=== PATIENT | male | born 1960 | race Caucasian/White ===

== ENCOUNTER 2017-06-05 13:39 | Emergency (ER) | payer OTHER, SELFPAY ==
[2017-06-05 13:40] VITALS: BP 130/76; PULSE 83; RESP 16; TEMP 37; O2SAT 97; BMI 32.5
--- NOTE | 2017-06-05 14:00 | NURSING ---
NO LW OR POA
--- NOTE | 2017-06-05 14:47 | CT_ITS ---
STUDY: CT ABDOMEN AND PELVIS WITHOUT CONTRAST REASON FOR EXAM: Male, 56 years old. Abdominal pain, 2 days, dizziness, history of diverticulitis history of lymphoma with chemotherapy history of lithotripsy RADIATION DOSAGE (If Supplied By Facility): CTDIvol = ( 15.49 ) mGy, DLP = ( 739.31 ) mGycm TECHNIQUE: Transaxial images were obtained from the dome of the diaphragm to the symphysis pubis without oral contrast, and without intravenous contrast. Sagittal and coronal images were reconstructed. Individualized dose optimization techniques were used for this CT. COMPARISON: September 24, 2015 CT scan abdomen and pelvis FINDINGS: The visualized lung bases are unremarkable. The visualized portions of the heart are within normal limits. The liver is enlarged and fatty infiltrated. Normal gallbladder and extrahepatic biliary system. Normal spleen. Normal pancreas. Normal bilateral adrenal glands. There are multiple punctate stones in the right kidney without evidence of hydronephrosis. There is a exophytic right renal cyst measuring 5.9 mm there is a left side exophytic renal cyst measuring 1.7 x 1.0 cm. There are multiple stones in the left kidney the largest of which is in the lower pole measuring 4.7 mm without evidence of hydronephrosis. There is some inflammation near the course of the left ureter along the left psoas muscle. There is a small hiatal hernia. There are minimally fluid distended loops of small bowel. There is moderate stool in the colon. There are diverticula present. Within the distal descending colon there is inflammation over a course of approximately 8 cm involving inflamed diverticula and surrounding inflammation in the pericolonic fat as well as the thickened appearance of the adjacent peritoneum including some mild stranding into the left side of the retroperitoneum. There is no definitive focal abscess formation. The appendix is visualized and appears normal. Aorta is partially calcified and minimally tortuous. There is a 1.6 cm lymph node at the level of the kidneys. There are multiple small left greater than right gilda- Aortic lymph nodes. Normal inferior vena cava. There are a few nonspecific stable appearing mesenteric lymph nodes and mild mesenteric edema. There is a thickened appearance of the bladder wall. Prostate measures 4.9 x 3.8 cm. Normal abdominal wall. There are diffuse degenerative changes of the visualized lumbar spine. There is degenerative change of the thoracolumbar spine with multilevel neural foraminal narrowing and gwax-nt-fjaukqhq central stenosis especially at the level of L3-L4. CT/Abdomen/Pelvis without Cont IMPRESSION: Findings are consistent with acute diverticulitis of the distal descending colon. There are reactive appearing lymph nodes in the left periaortic region which are enlarged when compared to the prior study September 24, 2015. The patient's history of lymphoma follow up is warranted. There is degenerative change of the thoracolumbar spine with multilevel neural foraminal narrowing and hllr-sf-egdfcgnl central stenosis especially at the level of L3-L4. Bilateral renal stones and no evidence of hydronephrosis. Hepatic steatosis. N.B. : The above information has been verbally conveyed by Rosy Gandhi MD to Dr. Joan Wells, Referring Physician, on 06/05/2017 17:15:07 (ET). Electronically Signed: Rosy Gandhi MD at 17:15 EST Tel , Service support , N.B. : The above information has been verbally conveyed by Rosy Gandhi MD to Dr. Joan Wells, Referring Physician, on 06/05/2017 17:15:07 (ET).
[2017-06-05 15:16] LABS: Absolute Lymphocyte Count 1.96 X10^3/ul (0.83-4.51); Absolute Neutrophil Count 8.9 X10^3/uL (2.0-7.7); Basophil# 0.03 X10^3/uL; Basophil% 0.3 % (0-1); Eosinophils% 1.7 % (0-5); Hematocrit 41.6 % (40-54); Hemoglobin 13.3 g/dl (13.0-16.5); Lymphocyte # 1.96 X10^3/ul (4.0); Lymphocyte % 16.4 % (19-41); Mean Corpuscular Hgb 28.5 pg (27.0-32.0); Mean Corpuscular Volume 89.3 fL (80-94); Mean Platelet Vol. 9.2 fl (6.2-12.0); Monocyte# 0.88 X10^3/uL; Monocyte% 7.4 % (0-10); Neutrophil # 8.87 X10^3/uL (2.7-7.7); Neutrophil % 73.9 % (47-70); Platelet Count 196 K/mm3 (150-450); RBC Distribution Width CV 13.4 % (11.6-14.6); RBC Distribution Width SD 43.2 fl (35.1-43.9); Red Blood Count 4.66 M/mm3 (4.6-6.2)
[2017-06-05 15:30] LABS: Anion Gap 5 (5-15); BUN 10 mg/dL (7-18); BUN/Creat Ratio 13.9 RATIO (10-20); Calcium,Total 8.9 mg/dL (8.5-10.1); Chloride 103 mmol/L (98-107); Creatinine, Serum 0.72 mg/dL (0.70-1.30); EST Glomerular Filtration Rate 118 mL/min (>60); Est Glom Filt Rate - Afr Amer 143 mL/min (>60); Estimated Creatinine Clearance 97.28 ml/min; Glucose 90 mg/dL (74-106); Potassium 3.8 mmol/L (3.5-5.1); Sodium Level 138 mmol/L (136-145)
[2017-06-05 15:35] LABS: Bacteria 0 SEEN /hpf (None Seen); Mucous, Urine 0 SEEN /hpf (<or=2+); Red Blood Cells-Urine 0 SEEN /hpf (0-5); White Blood Cells 0 SEEN /hpf (0-5)
--- NOTE | 2017-06-05 15:38 | ED.VISSUMM ---
- ER Visit Summary Date of Service: 06/05/17 Chief Complaint: [Abdominal pain] History of Present Illness: The patient is a 56 M presents the emergency department with abdominal pain that started yesterday. Patient denies any nausea or vomiting. Patient had subjective fever last night as well as chills and sweats. Patient has a history of high cholesterol, diabetes, lymphoma, and diverticulosis. Patient denies any urinary symptoms.] Physical Examination: [HEENT-PERRLA, EOMI. Cranial nerves II through XII grossly intact. TMs clear. Mucous membranes moist. No adenopathy. Cardiovascular-regular rate and rhythm without murmur or ectopy Lungs-clear to auscultation, chest wall stable without crepitus or subcu emphysema Abdomen-normoactive bowel sounds, soft. Patient has tenderness over the suprapubic region with guarding. There is no rebound, rigidity, or peritoneal signs. Extremities-intact ?4, normal range of motion, normal pulses, atraumatic] Test Results: [Chemistries unremarkable.] CBC with differential shows an elevated white blood cell count of 12, heme globin 13, hematocrit 42. Urinalysis was normal. CT scan abdomen pelvis without contrast showed acute diverticulitis of the sigmoid colon without evidence of abscess or perforation. Emergency Department Course and Treatment: [Patient will be medicated with Flagyl and Cipro.] Treatment Plan: [Patient will be given a prescription for Flagyl and Cipro as well as [place] for pain.] Disposition: [Discharged to home in stable condition. Patient advised to follow-up with his primary care physician within next 3-5 days. Patient to return if fever, worsening pain, bloody stools, or condition should worsen in any way.] Impression: [Acute diverticulitis of the sigmoid colon] This note was generated with [employer] dictation software. It may contain incorrect words, spelling, and punctuation that were not noted in review of the chart prior to signing ED Disposition - Plan for ED Patient: Chief Complaint: Abd Pain Referrals: Yvonne Topete [Primary Care Provider] -
[2017-06-05 15:41] LABS: POSITIVE COUNT NO; POSITIVE DIFFERENTIAL NO
[2017-06-05 15:42] LABS: POSITIVE MORPHOLOGY NO
[2017-06-05] MEDS: 0.9% Normal Saline 1,000 ML 125 ML IV (15:56)
[2017-06-05 15:57] VITALS: BP 137/80; PULSE 76; RESP 16; O2SAT 96
--- NOTE | 2017-06-05 15:57 | ED.RN ---
PT SITTING IN BED EATING A SNICKERS BAR. PT INFORMED ORDERS RECEIVED FOR PT TO BE NPO.
[2017-06-05 15:58] LABS: Color, Urine Yellow (Yellow); Glucose, Dipstick Normal (Normal); Ketone-Dipstick Negative (Negative); Leukocyte Esterase-Dipstick Negative /ul (Negative); Nitrite-Dipstick Negative (Negative); Occult Blood-Urine Negative /ul (Negative); Protein-Dipstick Negative (Negative); Specific Gravity, Urine 1.005 (1.002-1.030); Urine Bilirubin Dipstick Negative (Negative); Urine Clarity Sl. Cloudy (Clear); Urine Urobilinogen Normal (Normal); Urine pH 6.5 (5.0 - 8.0)
[2017-06-05 16:30] LABS: Squamous Epithelial Cells - UA 0-5 SEEN /hpf (0-5)
--- NOTE | 2017-06-05 17:16 | ED.DEP ---
ED Disposition - Plan for ED Patient: Chief Complaint: Abd Pain Instructions: ED Diverticulitis Prescriptions: Hydrocodone Bitart/Apap 5-325 [[place] 5/325] 1 - 2 tab PO Q4H PRN PRN 5 Days #20 tab PRN Reason: Pain Ciprofloxacin [Cipro] 500 mg PO BID #20 tab Metronidazole [Flagyl] 500 mg PO Q6H #40 tab Referrals: Yvonne Topete [Primary Care Provider] - 3-5 Days
--- NOTE | 2017-06-05 17:22 | DCINST.ED_ITS ---
ED Disposition - Plan for ED Patient: Chief Complaint: Abd Pain Instructions: ED Diverticulitis Prescriptions: Hydrocodone Bitart/Apap 5-325 [[place] 5/325] 1 - 2 tab PO Q4H PRN PRN 5 Days #20 tab PRN Reason: Pain Ciprofloxacin [Cipro] 500 mg PO BID #20 tab Metronidazole [Flagyl] 500 mg PO Q6H #40 tab Referrals: Yvonne Topete [Primary Care Provider] - 3-5 Days
[2017-06-05] MEDS: Ciprofloxacin 500 MG Tablet PO (17:36)
[2017-06-05 17:44] VITALS: BP 127/76; PULSE 73; RESP 16; O2SAT 96
== END 2017-06-05 17:45 | disposition home or self-care (01) ==
LOC: ED 14:48
PROVIDERS: Emergency Provider Emergency Medicine; Family Provider Internal Medicine Infectious Disease; PCP Internal Medicine Infectious Disease
DX: K57.32 Diverticulitis of large intestine without perforation or abscess without bleeding (principal); E11.9 Type 2 diabetes mellitus without complications; E78.00 Pure hypercholesterolemia, unspecified; Z72.0 Tobacco use; Z79.899 Other long term (current) drug therapy; Z85.72 Personal history of non-Hodgkin lymphomas
CPT/HCPCS: 74176; 80048; 81001; 85025; 96360; 96361; 99284; J7030; A4216

== ENCOUNTER → 2020-10-15 14:30 | Outpatient (CLI) | payer OTHER, SELFPAY ==
[2020-09-30 16:16] VITALS: BMI 30.9
--- NOTE | 2020-10-15 14:33 | ECHOD_ITS ---
Reason For Study: MURMUR Procedure This was a 2D Doppler, Color Flow transthoracic echocardiogram. Exam performed in department. Left Ventricle Normal LV size. Left ventricular systolic function is normal. The estimated ejection fraction is 60 %. Stage 1 diastolic dysfunction. No regional wall motion abnormalities noted. Right Ventricle Normal RV size. Normal systolic function. Atria Normal left atrium. Normal right atrium. Mitral Valve Normal mitral valve. Tricuspid Valve Normal tricuspid valve. Mild (1+) tricuspid valve insufficiency. Pulmonary artery systolic pressure is 30 mmHg. Aortic Valve Trisinus/trileaflet aortic valve. Moderate focal aortic valve calcification. Peak aortic valve gradient 39 mmHg. Mean aortic valve gradient 23 mmHg. Mild to moderate aortic stenosis. Calculated aortic valve area (continuity equation) is 1.1 cm2. Great Vessels Normal aortic root. The pulmonary artery is normal size. Normal inferior vena cava. Pericardium/Pleural No pericardial effusion. MMode/2D Measurements & Calculations LVIDd: 5.1 cm IVSd: 1.2 cm LVOT diam: 2.1 cm LVIDs: 3.1 cm LVPWd: 1.0 cm LVOT area: 3.6 cm2 RVDd: 3.3 cm FS: 38.5 % Ao root diam: 3.9 cm LAV(MOD-bp): 53.7 ml LA A4 area: 18.8 cm2 LAV(MOD-bp) Indexed: 28.0 ml/m2 LAV(MOD-sp2): 53.0 ml LAV(MOD-sp4): 53.1 ml LA dimension(2D): 3.8 cm RA A4 area: 16.0 cm2 Time Measurements MV dec time: 0.15 sec Doppler Measurements & Calculations MV E max patrick: 90.9 cm/sec Lat Peak E' Patrick: 9.2 cm/sec Med Peak E' Patrick: 9.0 cm/sec MV A max patrick: 97.5 cm/sec E/E' lat: 9.8 E/E' med: 10.1 MV E/A: 0.93 Ao V2 max: 311.9 cm/sec LV V1 max: 91.3 cm/sec SV(LVOT): 72.5 ml Ao max P.0 mmHg LV V1 max P.3 mmHg Ao V2 mean: 232.7 cm/sec LV V1 mean P.0 mmHg Ao mean P.4 mmHg LV V1 mean: 68.1 cm/sec Ao V2 VTI: 67.2 cm LV V1 VTI: 20.0 cm DAYANNA(I,D): 1.1 cm2 DAYANNA(V,D): 1.1 cm2 PA V2 max: 127.5 cm/sec TR max patrick: 260.8 cm/sec TR max P.2 mmHg ECHO/Echo Complete Interpretation Summary Normal LV size. Left ventricular systolic function is normal. The estimated ejection fraction is 60 %. Stage 1 diastolic dysfunction. Mild to moderate aortic stenosis. Calculated aortic valve area (continuity equation) is 1.1 cm2. Moderate focal aortic valve calcification. Ordering Physician: Adam Black Referring Physician: Miguel Ángel Wright Performed By: Kelsey Dobbins, BRIT, RVT
== END ==
PROVIDERS: PCP Internal Medicine; Referring Provider Internal Medicine Cardiovascular Disease; Visit Provider Internal Medicine Cardiovascular Disease
DX: I35.0 Nonrheumatic aortic (valve) stenosis (principal); R01.1 Cardiac murmur, unspecified
CPT/HCPCS: 93306

== ENCOUNTER → 2022-05-17 | Outpatient (CLI) | payer OTHER, SELFPAY ==
--- NOTE | 2022-05-23 08:00 | PET_ITS ---
EXAMINATION: FDG PET/CT ? INDICATIONS: 61-year-old male with a history of lymphoma, presenting for restaging examination. ? COMPARISON EXAMINATION: FDG PET CT study dated 12/23/2012 ? INDEX LESION SIZE SUV [place]O-[place]UV[place] SCORE INTERPRETATION NEW Pre-subcarinal anterior mediastinum 68.2 mm 3.6 max 4 Fulfills quantitative criteria for viable neoplasm ? TECHNIQUE: Following the intravenous administration of 12.44 mCi of F-18 deoxyglucose via the left hand, multiplanar image acquisitions of the neck, chest, abdomen and pelvis to the level of the midthigh, obtained at one-hour post radiopharmaceutical administration contemporaneously interpreted with FDG PET CT study dated 12/23/2012 reveal: ? SERUM GLUCOSE LEVEL:? 117 mg/dL? HEIGHT:?? 65 inches WEIGHT:?? 190 pounds ? FINDINGS: ? HEAD/NECK:? There is no evidence of abnormal increased glucose metabolism in the pharyngeal mucosal space, parapharyngeal space, oropharynx, bilateral-lateral and anterior neck, hypopharynx and distribution of the larynx. ? The visualized portion of the cerebral cortical-subcortical structures demonstrate symmetric and preserved glucose metabolism. ? CHEST: Facilitated radiopharmaceutical concentration is defined in the pre-subcarinal anterior mediastinum to the right of midline.? The calculated maximum standard uptake value is 3.6. The [place] Deauville score is 4. The maximal axial diameter of the metabolic, morphologic abnormality is 68.2 mm AP. Subtle increased FDG uptake is noted in the right axilla with a calculated maximum standard uptake value of 1.2. There is visualized radiopharmaceutical concentration noted in the left ventricular myocardium, consistent with the fed [place].? ? CT of the chest demonstrates the following anatomic characteristics: Port-A-Cath. Atherosclerotic calcification is defined in the thoracic aorta without evidence of dilatation, aneurysm formation. Coronary arterial calcification is observed. Additional right and visualized left axillary soft tissue densities are nonglucose avid. Additional mediastinal soft tissue densities are ametabolic. There are no parenchymal densities-nodules defined in the right and left hemithorax with quantitatively significant increased FDG uptake. ? ABDOMEN/PELVIS:? Normal physiologic distribution of the radiopharmaceutical is identified in the hepatic (2.8) and splenic parenchyma, both renal units, urinary bladder, and visualized intestinal tract. Diffuse intestinal tract is identified in all four quadrants of the abdomen and pelvis. ? CT of the abdomen and pelvis is remarkable for the following: The gallbladder is surgically absent. Exophytic cyst formation is defined in the bilateral renal units. Atherosclerotic calcification is defined in the abdominal aorta without evidence of dilatation, aneurysm formation. Pelvic arterial calcification is observed. Right-left inguinal soft tissue densities are nonglucose avid. There is calcification noted within the prostate gland. Occasional colonic diverticula is encountered without evidence of diverticulitis. ? SKELETAL:? There is no evidence of quantitatively significant enhanced glucose metabolism on meticulous inspection of the appendicular and axial skeletal structures. ? Degenerative changes defined in the thoracic and lumbar spine demonstrate no evidence of increased glucose metabolism. There are no sclerotic, mixed sclerotic-lytic, or primarily lytic changes defined in the axial skeletal structures with evidence of increased FDG uptake. ? PET/PET/CT Tumor Base -Thigh Subs IMPRESSION: 1. ABNORMAL EXAMINATION INDICATIVE OF MALIGNANT-VIABLE NEOPLASM. 2. Increased radiopharmaceutical concentration defined in the anterior mediastinum fulfills quantitative criteria for viable neoplasm with single point technique. 3. Overall, compared to the prior FDG PET study dated 12/23/2012, there is apparent current expression of defined viable neoplastic disease. ? Electronic Signature Tai Rivero D.O. Accurate Quantification of SUVs and standardized LUGANO-DE[place]UVIL[place] scores specific to lymphoma FDG PET-CT study interpretation for this report are calculated using the exclusive [employer]. ([place].S. Patent No. [id number] [id number] B2 [phone] [place] patent [phone]). Standardization and correction of the FDG SUV metric via [employer] technology allow for vendor non-specific objective quantitative examination comparison and optimization of the sensitivity and specificity of the FDG PET-CT examination. Electronically Signed: Tai Rivero, at 23:00 EST ,
== END | disposition home or self-care (01) ==
PROVIDERS: PCP Internal Medicine; Referring Provider Internal Medicine Hematology & Oncology; Visit Provider Internal Medicine Hematology & Oncology
DX: C83.38 Diffuse large B-cell lymphoma, lymph nodes of multiple sites (principal)
CPT/HCPCS: 78815; A9552

== ENCOUNTER 2022-07-28 20:11 | Emergency (ER) | payer OTHER, SELFPAY ==
[2022-07-28 20:13] VITALS: BP 121/67; PULSE 86; RESP 16; TEMP 36.6; O2SAT 96; BMI 29.1
--- NOTE | 2022-07-28 20:25 | EKG12_ITS ---
Test Reason : WEAKNESS Blood Pressure : / mmHG Vent. Rate : 082 BPM Atrial Rate : 082 BPM P-R Int : 138 ms QRS Dur : 094 ms QT Int : 352 ms P-R-T Axes : -03 017 -12 degrees QTc Int : 411 ms Normal sinus rhythm Nonspecific T wave abnormality Abnormal ECG Confirmed by LOUIE WEAVER ([id number]), editor & co founder BIENVENIDO DUTTON ([id number]) on 08/01/2022 7:35:05 AM Referred By: Confirmed By:LOUIE WEAVER
[2022-07-28] MEDS: 0.9% Normal Saline 1,000 ML 1000 ML IV (20:49)
[2022-07-28 20:58] LABS: Bacteria 0 SEEN /hpf (None Seen); Mucous, Urine 0 SEEN /hpf (<or=2+); Red Blood Cells-Urine 0 SEEN /hpf (0-5); Squamous Epithelial Cells - UA 0 SEEN /hpf (0-5); White Blood Cells 0 SEEN /hpf (0-5)
[2022-07-28 21:00] LABS: Color, Urine Yellow (Yellow); Glucose, Dipstick 1000 mg/dl (Normal); Ketone-Dipstick Negative (Negative); Leukocyte Esterase-Dipstick Negative /ul (Negative); Nitrite-Dipstick Negative (Negative); Occult Blood-Urine Negative /ul (Negative); Protein-Dipstick 30 mg/dl (Negative); Urine Bilirubin Dipstick Negative (Negative); Urine Clarity Clear (Clear); Urine Urobilinogen 1 mg/dl (Normal)
[2022-07-28 21:00] LABS: Absolute Neutrophil Count 6.8 X10^3/uL (2.0-7.7); Basophil# 0.03 X10^3/uL; Basophil% 0.4 % (0-1); Eosinophil# 0.05 X10^3/uL; Eosinophils% 0.6 % (0-5); Hematocrit 40.9 % (40-54); Hemoglobin 13.2 g/dL (13.0-16.5); Lymphocyte % 2.6 % (19-41); Mean Corp Hgb Conc 32.3 g/dL (32-36); Mean Corpuscular Hgb 29.5 pg (27.0-32.0); Mean Corpuscular Volume 91.3 fL (80-94); Mean Platelet Vol. 9.4 fl (6.2-12.0); Monocyte# 0.54 X10^3/uL; Monocyte% 6.9 % (0-10); NRBC Flagged by Analyzer 0 % (0-5); Neutrophil # 6.81 X10^3/uL (2.7-7.7); Neutrophil % 87.6 % (47-70); POSITIVE DIFFERENTIAL YES; Platelet Count 176 K/mm3 (150-450); RBC Distribution Width CV 15.5 % (11.6-14.6); RBC Distribution Width SD 51.1 fl (35.1-43.9); Red Blood Count 4.48 M/mm3 (4.6-6.2); White Blood Count 7.8 K/mm3 (4.4-11.0)
[2022-07-28 21:12] LABS: Differential Indicated SCAN CRITERIA MET
[2022-07-28 21:27] LABS: ALB/GLOB Ratio 1.2 RATIO (0.9-2.4); AST(SGOT) 31 U/L (15-37); Alanine Aminotransfer ALT/SGPT 60 U/L (16-61); Albumin, Serum 3.2 g/dL (3.2-5.0); Alkaline Phosphatase 68 U/L (45-117); Anion Gap 3 (5-15); BUN 17 mg/dL (7-18); BUN/Creat Ratio 20.8 RATIO (10-20); CPK Total, Creatine Kinase 70 U/L (39-308); Calcium,Total 9.2 mg/dL (8.5-10.1); Chloride 105 mmol/L (98-107); Creatinine, Serum 0.82 mg/dL (0.70-1.30); EST Glomerular Filtration Rate 101 mL/min (>60); Est Glom Filt Rate - Afr Amer 122 mL/min (>60); Estimated Creatinine Clearance 79.17 ml/min; Globulin 2.7 g/dL (2.2-4.2); Glucose 300 mg/dL (74-106); Lipase 15 U/L (13-75); Potassium 3.9 mmol/L (3.5-5.1); Protein, Total 5.9 g/dL (6.4-8.2); Sodium Level 138 mmol/L (136-145)
[2022-07-28 21:51] LABS: Differential Comment SCANNED
[2022-07-28 22:14] VITALS: BP 146/64; PULSE 54; RESP 16; O2SAT 97
[2022-07-28 22:35] VITALS: O2SAT 98
--- NOTE | 2022-07-28 22:37 | EX.ED.DYSGE1 ---
HPI History of Present Illness Chief Complaint: Weakness Informant: patient and spouse/S.O. Narrative Narrative: Patient is a 62-year-old male with history of diabetes, hypothyroid, hyperlipidemia and non-Hodgkin's lymphomas (currently undergoing chemotherapy with last treatment 2 weeks ago.) Patient today with 3 days of generalized weakness and diarrhea. He states his knees feel weak. He thinks he is dehydrated. Denies any nausea or vomiting. Denies recent abdominal pain. Does not report any blood in his stool. Thinks this is because of the antiviral medicine he is on, Zovirax. He is currently on prednisone. Denies any fever. Does have a history of diverticulitis with states this does not feel like this. Denies any sick contacts. No other complaints at this time. [facility] Medical History Adjustment disorder Hyperlipidemia Nicotine dependence Non-Hodgkin lymphoma Nonrheumatic aortic (valve) stenosis Tubular adenoma of colon Type 2 diabetes mellitus without complication Urolithiasis Home Medications atorvastatin 40 mg tablet 40 mg PO QHS 09/30/19 [History Last Taken Unknown] omeprazole 40 mg capsule,delayed release 40 mg PO DAILY PRN 09/30/19 [History Last Taken Unknown] glipizide 2.5 mg tablet, extended release 24 hr 2.5 mg PO DAILY 11/11/21 [History Last Taken Unknown] levothyroxine 50 mcg tablet 50 mcg PO 11/11/21 [History Last Taken Unknown] venlafaxine 75 mg capsule,extended release 24 hr 75 mg PO DAILY 11/11/21 [History Last Taken Unknown] Allergy/AdvReac Type Severity Reaction Status Date / Time meclizine AdvReac Other Verified 07/28/22 20:31 Penicillins AdvReac Rash Verified 07/28/22 20:31 Family History Father Myocardial infarction Surgical History History of extraction of renal calculus History of lymph node biopsy Social History Smoking Status: Current every day smoker tobacco type: cigarettes alcohol intake: current alcohol intake frequency: a few times a week Alcohol type: beer substance use type: does not use caffeine: Yes Type: coffee Number of servings: 1 ROS ROS ED Constitutional Constitutional ED: Reports other Details: generalized weakness ; Denies chills or fever(s) Eyes Eyes: Denies change in vision ENT ENT ED: Denies sore throat Cardiovascular Cardiovascular: Denies chest pain or palpitations Respiratory/Chest Respiratory/Chest: Denies cough Gastrointestinal Gastrointestinal: Reports diarrhea; Denies abdominal pain, nausea or vomiting Musculoskeletal Musculoskeletal: Denies arthralgias or myalgias Integumentary Denies rash Neurologic Neurologic: Reports weakness; Denies headache(s) EXAM Physical Exam Const Vital Signs: 07/28/22 20:13 07/28/22 20:32 07/28/22 22:14 Temperature 97.8 F Temperature Source Temporal Pulse Rate 86 54 L Respiratory Rate 16 16 Respiratory Effort Normal Non-Labored Respiratory Pattern Normal Blood Pressure 121/67 H 146/64 H Blood Pressure Mean 85 91 Pulse Ox 96 97 Oxygen Delivery Method Room Air Room Air Positive well nourished and well developed General Appearance ED: well developed and NAD HEENT Reports moist mucous membranes Eyes PERRL and EOMs intact bilaterally Neck supple Chest Wall inspection of chest normal and palpation of chest normal Resp normal respiratory effort and clear to auscultation bilaterally Cardio regular rate and regular rhythm Heart Sounds: murmur GI normal to inspection, nondistended, normoactive bowel sounds and non-tender Auscultation: hyperactive bowel sounds Extremity normal to inspection Neuro oriented x3 and no sensory deficits noted Sensorium / Orientation: alert Motor Exam: strength 5/5 throughout and general weakness Psych mental status grossly normal Skin no rashes or lesions noted and no wounds MDM MDM MDM Narrative Medical decision making narrative: Is evaluated for diarrhea and generalized weakness. He appears nontoxic and in no acute distress. Vital signs are normal. Patient does not have any significant electrolyte abnormalities. Kidney function is normal. Urinalysis is not consistent with infection but does show glucose urea. This is consistent with patient's history of diabetes mellitus. Glucose is elevated at 300 however he has actually has a low anion gap. Suspect this is secondary to his steroid use. Patient does have a bowel movement the ER but were not able to collect a sample. I did discuss the case with oncology on-call, Dr. Jimenez, for [facility]. She is able to put in an outpatient C. difficile study. She has no further recommendations. She does not think his antiviral is associated with his diarrhea. Patient is given supplies to collect stool sample. Counseled to not use Imodium until he knows that its not C. difficile. I did encourage him to use Pepto-Bismol if needed for his diarrhea in the meantime. Counseled to drink lots of fluids. Given strict return cautions especially if he has increased abdominal pain, blood in his stool or develop a fever. Patient and verbalized agreement understands plan. Patient discharged home in stable condition. Lab Data Attestation: I reviewed the patient's lab results. Labs: Laboratory Results - last 24 hr 07/28/22 07/28/22 07/28/22 20:45 20:45 20:46 WBC 7.8 RBC 4.48 L Hgb 13.2 Hct 40.9 MCV 91.3 MCH 29.5 MCHC 32.3 RDW Std Deviation 51.1 H RDW Coeff of Yvonne 15.5 H Plt Count 176 MPV 9.4 Immature Gran % (Auto) 1.900 H Neut % (Auto) 87.6 H Lymph % (Auto) 2.6 L [place] % (Auto) 6.9 Eos % (Auto) 0.6 Baso % (Auto) 0.4 Absolute Neuts (auto) 6.8 Absolute Lymphs (auto) 0.20 L Nucleated RBC % 0 Differential Comment SCANNED Sodium 138 Potassium 3.9 Chloride 105 Carbon Dioxide 30.0 Anion Gap 3 L BUN 17 Creatinine 0.82 Estim Creat Clear Calc 79.17 Est GFR (MDRD) Af Amer 122 Est GFR (MDRD) Non-Af 101 BUN/Creatinine Ratio 20.8 H Glucose 300 H Calcium 9.2 Magnesium 2.0 Total Bilirubin 0.50 AST 31 ALT 60 Alkaline Phosphatase 68 Total Creatine Kinase 70 Total Protein 5.9 L Albumin 3.2 Globulin 2.7 Albumin/Globulin Ratio 1.2 Lipase 15 Urine Color Yellow Urine Clarity Clear Urine pH 6.0 Ur Specific [place] 1.020 Urine Protein 30 H Urine Glucose (UA) 1000 H Urine Ketones Negative Urine Occult Blood Negative Urine Nitrite Negative Urine Bilirubin Negative Urine Urobilinogen 1 H Ur Leukocyte Esterase Negative Rhythm Strip Rhythm Strip: Sinus Rhythm Rate: 82 Ectopy: None EKG Initial EKG: Attestation: I personally reviewed and interpreted this EKG as follows: Interpretation: Sinus Rhythm Comments: Normal sinus rhythm rate of 82 bpm Normal axis Normal intervals Normal ST segments Nonspecific T wave abnormalities Prior EKG tracings: not available for review Differential Diagnosis Differential Diagnosis: Diverticulitis Why less likely: No fever, leukocytosis or abdominal pain Differential Diagnosis: Ischemic colitis Why less likely: No abdominal pain Management Discussion w/another healthcare provider: Business Management Professor Additional Tests and Interventions Diagnositc testing considered but not performed: CT abd and pelvis- no leukocytosis or abdominal tenderness Discharge Plan Triage Chief Complaint: Weakness ED Provider: Nemo Thomason Dx/Rx/DC Orders Clinical Impression: Diarrhea, Generalized weakness Prescriptions: No Action atorvastatin 40 mg tablet 40 mg PO QHS omeprazole 40 mg capsule,delayed release(DR/EC) 40 mg PO DAILY PRN glipizide 2.5 mg tablet extended release 24hr 2.5 mg PO DAILY Label Comments: TAKE ONE TABLET BY MOUTH EVERY DAY venlafaxine 75 mg capsule,extended release 24hr 75 mg PO DAILY Label Comments: TAKE ONE CAPSULE BY MOUTH DAILY levothyroxine 50 mcg tablet 50 mcg PO Primary Care Provider: Miguel Ángel Wright Referrals: Miguel Ángel Wright MD [Primary Care Provider] - Activity Restrictions/Additional Instructions: Please follow-up with oncology outpatient. [facility] for C. difficile study per my conversation with oncology. If you develop fever, abdominal pain or blood in your stool please return to the emergency room. And continue to drink lots of fluids. You may take [id number] Pepto-Bismol for your symptoms. Disposition Disposition: Home, Self Care
[2022-07-28 23:29] VITALS: BP 125/73; PULSE 79; RESP 18; O2SAT 97
== END 2022-07-28 23:30 | disposition home or self-care (01) ==
PROVIDERS: Emergency Provider Emergency Medicine; PCP Internal Medicine; Visit Provider Emergency Medicine
DX: R19.7 Diarrhea, unspecified (principal); E11.65 Type 2 diabetes mellitus with hyperglycemia; F17.210 Nicotine dependence, cigarettes, uncomplicated; E78.5 Hyperlipidemia, unspecified; E03.9 Hypothyroidism, unspecified
CPT/HCPCS: 36591; 80053; 81001; 82550; 83690; 83735; 85025; 93005; 96360; 96361; 99284; J7030; A4216

== ENCOUNTER 2022-07-31 07:45 | Emergency (ER) | payer OTHER, SELFPAY ==
[2022-07-31 07:46] VITALS: BP 148/80; PULSE 111; RESP 16; TEMP 36.8; O2SAT 95; BMI 29.1
--- NOTE | 2022-07-31 07:59 | EDS_ITS ---
HPI History of Present Illness Chief Complaint: Fever Narrative Narrative: 62-year-old male past medical history of remote lymphoma, states he was rediagnosed with recurrent lymphoma and is supposed to undergo his second round of chemotherapy next week. He states that he awoke this morning with a fever as high as 101.6, but did not take any antipyretics. He had a slight headache and runny nose. Otherwise, he states he feels well without cough. He does complain of a little bit of pain with urination additionally but no gross hematuria. No diarrhea, no other symptoms. They called their oncologist office, and were told to come to the emergency department for evaluation for fever. However, upon arrival, he is afebrile. [facility] Medical History Adjustment disorder Hyperlipidemia Nicotine dependence Non-Hodgkin lymphoma Nonrheumatic aortic (valve) stenosis Tubular adenoma of colon Type 2 diabetes mellitus without complication Urolithiasis Home Medications atorvastatin 40 mg tablet 40 mg PO QHS 09/30/19 [History Last Taken Unknown] omeprazole 40 mg capsule,delayed release 40 mg PO DAILY PRN 09/30/19 [History Last Taken Unknown] glipizide 2.5 mg tablet, extended release 24 hr 2.5 mg PO DAILY 11/11/21 [History Last Taken Unknown] levothyroxine 50 mcg tablet 50 mcg PO 11/11/21 [History Last Taken Unknown] venlafaxine 75 mg capsule,extended release 24 hr 75 mg PO DAILY 11/11/21 [History Last Taken Unknown] levofloxacin 750 mg tablet 750 mg PO DAILY #5 tabs 07/31/22 [Rx Last Taken Unknown] Allergy/AdvReac Type Severity Reaction Status Date / Time meclizine AdvReac Other Verified 07/31/22 07:47 Penicillins AdvReac Rash Verified 07/31/22 07:47 Family History Father Myocardial infarction Surgical History History of extraction of renal calculus History of lymph node biopsy Social History Smoking Status: Current every day smoker tobacco type: cigarettes alcohol intake: current alcohol intake frequency: a few times a week Alcohol type: beer substance use type: does not use caffeine: Yes Type: coffee Number of servings: 1 ROS ROS ED ROS Narrative Constitutional: No fever, no chills. HEENT: No sore throat. No neck pain. No loss of vision. Occasional rhinorrhea. Cardiovascular: No chest pain. No palpitations. No pedal edema. Respiratory: No cough, no shortness of breath. Abdominal: No abdominal pain. No nausea. No vomiting. Genitourinary: Slight dysuria. No hematuria. Musculoskeletal: No myalgias. No arthralgias. Neurologic: Mild headache today. No dizziness. No lightheadedness. Skin: No rash. No change in color. Psychiatric: No depression. No anxiety. EXAM Physical Exam Narrative Exam Narrative: Afebrile. Vital signs noted. Nontoxic-appearing. HEENT: Normocephalic. Atraumatic. PERRL, EOMI. Neck soft and supple. No point tenderness or step off. Cardiovascular: Tachycardia. Holosystolic murmur. No rubs, or gallops appreciated. Respiratory: No tachypnea. Lungs clear to auscultation bilaterally. Gastrointestinal: Abdomen soft, nontender, with normoactive bowel sounds. No rebound or guarding. Neurological: Awake. Alert. Nonfocal, nonlateralizing. Ambulates without difficulty in ED. Skin: No rash. Normal color. No pallor. Musculoskeletal: No pedal edema. Full range of motion extremities. Const Vital Signs: 07/31/22 07:46 07/31/22 08:23 Temperature 98.3 F Temperature Source Temporal Pulse Rate 111 H Respiratory Rate 16 Respiratory Effort Normal Respiratory Pattern Normal Blood Pressure 148/80 H Blood Pressure Mean 102 Pulse Ox 95 Oxygen Delivery Method Room Air MDM MDM MDM Narrative Medical decision making narrative: In the differential diagnosis is UTI versus viral URI. However, without taking antipyretics, he is afebrile here with a temperature of 98.3 ?F. Also in the differential diagnosis is pneumonia. We will look for source of his reported fever and his urine by obtaining a urinalysis. Additionally respiratory swabs will be obtained including COVID and influenza. Given his tachycardia, lactic acid will be obtained. He is actually slightly hypertensive here at 148/80. Chest x-ray will be obtained to rule out pneumonia. Even if he has a negative work-up, I will touch base with the oncologist on-call, Dr. Alvarez. The patient's laboratory work and he has elevated white count of 14.7, hemoglobin 13.4, hematocrit 41.5, with platelet count consistent with thrombocytopenia of 129, which is slightly below normal for him. I do find this could be secondary to his lymphoma. In review of his electrolyte panel he is mildly hyponatremic at 130 as he had been in the past, but he was bolused normal saline 1 L intravenously. He has a normal BUN of 13 with a creatinine of 0.78. Glucose elevated at 318 consistent with his diabetes but he has a normal anion gap/low at 3. I do not feel that he is in ketoacidosis. As he was tachycardic initially, I did obtain a lactic acid which is normal at 1.3. In review of his urinalysis, it is negative for infection with 0 WBCs and negative nitrites. I interpreted his chest x-ray and see no evidence of gross consolidation. I also reviewed the radiology report which confirms my independent interpretation. I reviewed his respiratory swabs for COVID and influenza which are negative. In discussion with Dr. Alvarez with oncology, he would like blood cultures drawn prior to discharge. He would like 1 drawn from the peripheral line, and 1 from his Mediport. Additionally, he requested full respiratory molecular swab be performed, and a prescription for Levaquin for 5 days to be written. I informed the patient of this that he should still follow-up for his chemotherapy next week and to take the antibiotics with his cultures pending. Patient and are agreeable to the plan. I feel he can be discharged safely home with follow- up. Return instructions to the emergency department were reviewed. Disposition is discharged home in stable condition. History & Record Review Discussion w/independent historian: Patient and Significant other Additional record(s) reviewed:: Prior outpatient record, Prior ED visit and Prior labs Lab Data Attestation: I reviewed the patient's lab results. Labs: Laboratory Results - last 24 hr 07/31/22 07/31/22 07/31/22 08:10 08:15 08:15 WBC 14.7 H RBC 4.57 L Hgb 13.4 Hct 41.5 MCV 90.8 MCH 29.3 MCHC 32.3 RDW Std Deviation 51.7 H RDW Coeff of Yvonne 15.8 H Plt Count 129 L MPV 9.8 Immature Gran % (Auto) 1.800 H Neut % (Auto) 93.1 H Lymph % (Auto) 0.6 L Bailey % (Auto) 4.1 Eos % (Auto) 0.1 Baso % (Auto) 0.3 Absolute Neuts (auto) 13.7 H Absolute Lymphs (auto) 0.09 L Nucleated RBC % 0 Differential Comment SCANNED Sodium 130 L Potassium 4.2 Chloride 101 Carbon Dioxide 26.0 Anion Gap 3 L BUN 13 Creatinine 0.78 Estim Creat Clear Calc 83.23 Est GFR (MDRD) Af Amer 129 Est GFR (MDRD) Non-Af 106 BUN/Creatinine Ratio 16.6 Glucose 318 H Lactic Acid Calcium 8.9 Total Bilirubin 0.70 AST 21 ALT 52 Alkaline Phosphatase 66 Total Protein 6.0 L Albumin 3.2 Globulin 2.8 Albumin/Globulin Ratio 1.1 Urine Color Yellow Urine Clarity Clear Urine pH 6.5 Ur Specific [place] 1.010 Urine Protein 30 H Urine Glucose (UA) 1000 H Urine Ketones Negative Urine Occult Blood Negative Urine Nitrite Negative Urine Bilirubin Negative Urine Urobilinogen Normal Ur Leukocyte Esterase Negative Urine RBC 0 SEEN Urine WBC 0 SEEN Ur Squamous Epith Cells 0 SEEN Urine Bacteria 0 SEEN Urine Mucus 0 SEEN 07/31/22 08:15 WBC RBC Hgb Hct MCV MCH MCHC RDW Std Deviation RDW Coeff of Yvonne Plt Count MPV Immature Gran % (Auto) Neut % (Auto) Lymph % (Auto) Bailey % (Auto) Eos % (Auto) Baso % (Auto) Absolute Neuts (auto) Absolute Lymphs (auto) Nucleated RBC % Differential Comment Sodium Potassium Chloride Carbon Dioxide Anion Gap BUN Creatinine Estim Creat Clear Calc Est GFR (MDRD) Af Amer Est GFR (MDRD) Non-Af BUN/Creatinine Ratio Glucose Lactic Acid 1.3 Calcium Total Bilirubin AST ALT Alkaline Phosphatase Total Protein Albumin Globulin Albumin/Globulin Ratio Urine Color Urine Clarity Urine pH Ur Specific [place] Urine Protein Urine Glucose (UA) Urine Ketones Urine Occult Blood Urine Nitrite Urine Bilirubin Urine Urobilinogen Ur Leukocyte Esterase Urine RBC Urine WBC Ur Squamous Epith Cells Urine Bacteria Urine Mucus Radiography Diagnostic Testing: Clinical Impression(s) from Imaging Studies Chest X-Ray 07/31/22 08:25 IMPRESSION: Soft tissue prominence within the right suprahilar region, may be secondary to an underlying neoplastic process. Electronically Signed: Georgina Monteiro MD at 8:45 EDT , Management Discussion w/another healthcare provider: Momd Teacher (Dr. Jb Alvarez, oncology) Discharge Plan Triage Chief Complaint: Fever ED Provider: Leo Harding Dx/Rx/DC Orders Clinical Impression: Non-Hodgkin lymphoma, Fever Instructions: Cancer: Preventing Infections, ED FUO Adult Prescriptions: New levofloxacin 750 mg tablet 750 mg PO DAILY Qty: 5 0RF No Action atorvastatin 40 mg tablet 40 mg PO QHS omeprazole 40 mg capsule,delayed release(DR/EC) 40 mg PO DAILY PRN glipizide 2.5 mg tablet extended release 24hr 2.5 mg PO DAILY Label Comments: TAKE ONE TABLET BY MOUTH EVERY DAY venlafaxine 75 mg capsule,extended release 24hr 75 mg PO DAILY Label Comments: TAKE ONE CAPSULE BY MOUTH DAILY levothyroxine 50 mcg tablet 50 mcg PO Primary Care Provider: Miguel Ángel Wright Referrals: Miguel Ángel Wright MD [Primary Care Provider] - Jb Alvarez DO [Med Staff - Active Staff] - Keep Ebenezer appointment Disposition Disposition: Home, Self Care
[2022-07-31] MEDS: 0.9% Normal Saline 1,000 ML 1000 ML IV (08:15)
--- NOTE | 2022-07-31 08:25 | RAD_ITS ---
INDICATION: Fever EXAMINATION/TECHNIQUE: X-RAY - XR Chest 1 View COMPARISON: December 10, 2012 and PET/CT dated May 23, 2022 FINDINGS: LINES/DEVICES: There is a Mediport in place terminating within the expected region of the superior vena cava. LUNGS: There is soft tissue prominence within the right suprahilar region. CARDIOVASCULAR STRUCTURES: Cardiac silhouette not enlarged. BONES AND SOFT TISSUES: Unremarkable. RAD/Chest 1 View (Portable) IMPRESSION: Soft tissue prominence within the right suprahilar region, may be secondary to an underlying neoplastic process. Electronically Signed: Georgina Monteiro MD at 8:45 EDT ,
[2022-07-31 08:28] LABS: Bacteria 0 SEEN /hpf (None Seen); Mucous, Urine 0 SEEN /hpf (<or=2+); Red Blood Cells-Urine 0 SEEN /hpf (0-5); Squamous Epithelial Cells - UA 0 SEEN /hpf (0-5); White Blood Cells 0 SEEN /hpf (0-5)
[2022-07-31 08:34] LABS: Absolute Lymphocyte Count 0.09 X10^3/uL (0.83-4.51); Absolute Neutrophil Count 13.7 X10^3/uL (2.0-7.7); Basophil# 0.05 X10^3/uL; Basophil% 0.3 % (0-1); Eosinophil# 0.01 X10^3/uL; Eosinophils% 0.1 % (0-5); Hematocrit 41.5 % (40-54); Hemoglobin 13.4 g/dL (13.0-16.5); Lymphocyte # 0.09 X10^3/ul (0.83-4.51); Lymphocyte % 0.6 % (19-41); Mean Corp Hgb Conc 32.3 g/dL (32-36); Mean Corpuscular Hgb 29.3 pg (27.0-32.0); Mean Corpuscular Volume 90.8 fL (80-94); Mean Platelet Vol. 9.8 fl (6.2-12.0); Monocyte% 4.1 % (0-10); NRBC Flagged by Analyzer 0 % (0-5); Neutrophil # 13.69 X10^3/uL (2.7-7.7); Neutrophil % 93.1 % (47-70); POSITIVE DIFFERENTIAL YES; Platelet Count 129 K/mm3 (150-450); RBC Distribution Width CV 15.8 % (11.6-14.6); RBC Distribution Width SD 51.7 fl (35.1-43.9); Red Blood Count 4.57 M/mm3 (4.6-6.2); White Blood Count 14.7 K/mm3 (4.4-11.0)
[2022-07-31 08:39] LABS: Differential Indicated SCAN CRITERIA MET
[2022-07-31 08:47] LABS: ALB/GLOB Ratio 1.1 RATIO (0.9-2.4); AST(SGOT) 21 U/L (15-37); Alanine Aminotransfer ALT/SGPT 52 U/L (16-61); Albumin, Serum 3.2 g/dL (3.2-5.0); Alkaline Phosphatase 66 U/L (45-117); Anion Gap 3 (5-15); BUN 13 mg/dL (7-18); BUN/Creat Ratio 16.6 RATIO (10-20); Calcium,Total 8.9 mg/dL (8.5-10.1); Chloride 101 mmol/L (98-107); Creatinine, Serum 0.78 mg/dL (0.70-1.30); EST Glomerular Filtration Rate 106 mL/min (>60); Est Glom Filt Rate - Afr Amer 129 mL/min (>60); Estimated Creatinine Clearance 83.23 ml/min; Globulin 2.8 g/dL (2.2-4.2); Glucose 318 mg/dL (74-106); Potassium 4.2 mmol/L (3.5-5.1); Sodium Level 130 mmol/L (136-145)
[2022-07-31 08:48] LABS: Color, Urine Yellow (Yellow); Glucose, Dipstick 1000 mg/dl (Normal); Ketone-Dipstick Negative (Negative); Leukocyte Esterase-Dipstick Negative /ul (Negative); Nitrite-Dipstick Negative (Negative); Occult Blood-Urine Negative /ul (Negative); Protein-Dipstick 30 mg/dl (Negative); Urine Bilirubin Dipstick Negative (Negative); Urine Clarity Clear (Clear); Urine Urobilinogen Normal (Normal); Urine pH 6.5 (5.0 - 8.0)
[2022-07-31 09:12] LABS: Lactic Acid 1.3 mmol/L (0.4-1.9)
[2022-07-31 09:17] LABS: Differential Comment SCANNED
--- NOTE | 2022-07-31 10:15 | ED.RN ---
THIS RN ACCESSED LT CHEST PORT PER ORDER FOR 2 ND SET OF BLOOD CULTURES. SITE FLUSHES EASILY. DEACCESSED
== END 2022-07-31 10:19 | disposition home or self-care (01) ==
PROVIDERS: Emergency Provider Emergency Medicine; PCP Internal Medicine; Visit Provider Emergency Medicine
DX: C85.90 Non-Hodgkin lymphoma, unspecified, unspecified site (principal); E11.65 Type 2 diabetes mellitus with hyperglycemia; E78.5 Hyperlipidemia, unspecified; F17.210 Nicotine dependence, cigarettes, uncomplicated; Z95.828 Presence of other vascular implants and grafts
CPT/HCPCS: 71045; 80053; 81001; 83605; 85025; 87040; 87428; 87633; 96360; 99283; J7030; A4216

== ENCOUNTER 2022-08-28 08:55 | Emergency (ER) | payer OTHER, SELFPAY ==
[2022-08-28 08:55] VITALS: BP 118/76; BP 123/74; PULSE 102; PULSE 87; RESP 16; TEMP 36.4; O2SAT 95; O2SAT 97; BMI 28.6
[2022-08-28 09:19] VITALS: BP 123/74; PULSE 87; RESP 16; O2SAT 98; BMI 28.4
--- NOTE | 2022-08-28 09:19 | EKG12_ITS ---
Test Reason : WEAKNESS Blood Pressure : / mmHG Vent. Rate : 090 BPM Atrial Rate : 090 BPM P-R Int : 148 ms QRS Dur : 094 ms QT Int : 352 ms P-R-T Axes : 022 -02 028 degrees QTc Int : 430 ms Normal sinus rhythm Inferior infarct , age undetermined Abnormal ECG Confirmed by MEENA CANO, YARELIS ([id number]), senior editor BIENVENIDO DUTTON ([id number]) on 08/29/2022 8:22:22 AM Referred By: JOSEPH Confirmed By:YARELIS ROBLEDO MD
--- NOTE | 2022-08-28 09:19 | CT_ITS ---
STUDY: CT HEAD STROKE PROTOCOL W/O CONTRAST INJECTION REASON FOR EXAM: Male, 62 years old. Neuro deficit, acute, stroke suspected RADIATION DOSAGE (If Supplied By Facility): CTDIvol = ( 44.99 ) mGy, DLP = ( 812.98 ) mGycm TECHNIQUE: Transaxial CT imaging of the brain was performed without administration of intravenous contrast material. Individualized dose optimization techniques were used for this CT. COMPARISON: No relevant priors. FINDINGS: Normal soft tissue structures. Normal calvarium. There is mild cerebral atrophy with widening of the extra-axial spaces and ventricular dilatation. Normal white matter tracts of the cerebral hemispheres. Normal basal ganglia and thalami. Normal brainstem. Normal cerebellum. There is no intracranial hemorrhage. There are no findings of an acute ischemic infarction. Atherosclerotic plaque formation of the cavernous portions of the internal carotid arteries bilaterally. Normal visualized paranasal sinuses. ASPECT score: 10 CT/STROKE Brain/Head without Cont IMPRESSION: Chronic involutional changes of the brain. N.B. : The above Results were Read Back by Canelo Melvin MD to Dr Peter MD, and understanding confirmed on 08/28/2022 10:59:23 (ET). Electronically Signed: Canelo Melvin MD at 11:00 EDT ,
--- NOTE | 2022-08-28 09:20 | EDS_ITS ---
HPI History of Present Illness Chief Complaint: Neuro S/Sx Detail of Chief Complaint: Dizziness and off-balance. Prior history. Informant: patient and spouse/S.O. Onset/Context/Timing Onset: Days Context: Gradual Onset Timing: Intermittent Quality and Location: Positive for Difficulty with Ambulation; Negative for Right Facial Droop, Left Facial Droop, Right Face Paresthesia, Left Face Parasthesia, Right Arm Parasthesia, Left Arm Parasthesia, Right Leg Parasthesia, Left Leg Parasthesia, Right Arm Weakness, Left Arm Weakness, Right Leg Weakness, Left Leg Weakness, Slurred Speech, Expressive Aphasia or Receptive Aphasia Current Severity: Mild Associated Symptoms Associated Symptoms: Negative for Headache, Nausea, Vomiting or Chest Pain Narrative Narrative: 62-year-old male history of diabetes and non-Hodgkin's lymphoma for which she is undergoing chemotherapy. States I am walking like I am drunk. Patient denies being ill. He denies nausea, vomiting, diarrhea. He denies fever or chills. States that time he feels dizzy. He has had this before. He thinks he may have had a history of some vertigo in the past. Says they will not get the mail he thought he was staggering. Denies the room spinning. Denies any headache. Sa ys generally both legs have been weak but not 1 more than the other. Denies any problems with his speech or any numbness. Symptoms began around Sunday. He has had all the symptoms in the past. He has never had a stroke or mini stroke. Prior similar symptoms: Yes Recent Illness/Hospitalization: No PFSH [facility] Medical History Adjustment disorder Hyperlipidemia Nicotine dependence Non-Hodgkin lymphoma Nonrheumatic aortic (valve) stenosis Tubular adenoma of colon Type 2 diabetes mellitus without complication Urolithiasis Home Medications atorvastatin 40 mg tablet 40 mg PO QHS 09/30/19 [History Last Taken Unknown] omeprazole 40 mg capsule,delayed release 40 mg PO DAILY PRN 09/30/19 [History Last Taken Unknown] glipizide 2.5 mg tablet, extended release 24 hr 2.5 mg PO DAILY 11/11/21 [History Last Taken Unknown] levothyroxine 50 mcg tablet 50 mcg PO 11/11/21 [History Last Taken Unknown] venlafaxine 75 mg capsule,extended release 24 hr 75 mg PO DAILY 11/11/21 [History Last Taken Unknown] levofloxacin 750 mg tablet 750 mg PO DAILY #5 tabs 07/31/22 [Rx Last Taken Unknown] Allergy/AdvReac Type Severity Reaction Status Date / Time meclizine AdvReac Other Verified 07/31/22 07:47 Penicillins AdvReac Rash Verified 07/31/22 07:47 Family History Father Myocardial infarction Surgical History History of extraction of renal calculus History of lymph node biopsy Social History Smoking Status: Current every day smoker tobacco type: cigarettes alcohol intake: current alcohol intake frequency: a few times a week Alcohol type: beer substance use type: does not use caffeine: Yes Type: coffee Number of servings: 1 ROS ROS ED ROS Narrative Dizziness. Review of Systems ROS Unobtainable: Denies due to encephalopathy Constitutional Constitutional ED: Denies chills or fever(s) Eyes Eyes: Denies blurry vision ENT ENT ED: Denies ear pain Cardiovascular Cardiovascular: Denies chest pain or palpitations Respiratory/Chest Respiratory/Chest: Denies cough or dyspnea Gastrointestinal Gastrointestinal: Denies abdominal pain Genitourinary Genitourinary ED: Denies dysuria or hematuria Musculoskeletal Musculoskeletal: Denies arthralgias Integumentary Denies abscess Neurologic Neurologic: Denies headache(s) Psychiatric Psychiatric: Denies anxiety Endocrine Endocrinology: Denies polydipsia Hematologic/Lymphatic Hematologic/Lymphatic: Denies easy bleeding Allergic/Immunologic Allergic/Immunologic ED: Denies mouth swelling or urticaria EXAM Physical Exam Narrative Exam Narrative: Well-appearing 62-year-old male. Vital signs stable afebrile. at bedside. H EENT exam unremarkable. No facial droop. Normal speech. Neck nontender. Lungs clear to auscultation bilaterally. Heart regular rhythm rate about 100. He does have a form 6 systolic ejection murmur. He is known valvular heart disease. Abdomen is soft and nontender. He is moving all 4 extremities. 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 Dorsi plantarflexion intact. Fingertip to nose within normal limits bilaterally. No drift bilaterally. Neurologically he is awake and alert with no focal motor deficits while lying in bed. Normal speech. No facial droop. Normal sensation. Normal motor strength both upper and lower extremities. Const Vital Signs: 08/28/22 08:55 08/28/22 09:19 08/28/22 09:19 Temperature 97.5 F L Temperature Source Temporal Pulse Rate 102 H 87 Respiratory Rate 16 16 Blood Pressure 118/76 123/74 H Blood Pressure Mean 90 90 Pulse Ox 97 98 Oxygen Delivery Method Room Air Room Air Room Air 08/28/22 08:55 08/28/22 11:19 08/28/22 11:32 Temperature Temperature Source Pulse Rate 87 87 87 Respiratory Rate 16 15 15 Blood Pressure 123/74 H 123/79 H 123/79 H Blood Pressure Mean 90 93 93 Pulse Ox 95 96 96 Oxygen Delivery Method Room Air Room Air Room Air Positive well nourished and well developed; Negative for cachectic, contractures or unkempt General Appearance ED: well developed and NAD; Negative for unkempt, cachectic or contractures Nutritional Appearance: Negative for cachectic HEENT Reports TM's clear and moist mucous membranes atraumatic; Negative for trauma Tympanic Membrane ED: Yes TM's clear Eyes PERRL and EOMs intact bilaterally General Eye ED: Negative for pale conjunctiva or scleral icterus Neck no lymphadenopathy, supple and no JVD General: Negative for tenderness Thyroid: Negative for other Chest Wall inspection of chest normal and palpation of chest normal Chest: Negative for other Resp normal respiratory effort and clear to auscultation bilaterally Effort and Inspection: Negative for retractions Auscultation: Negative for rales, rhonchi or wheezes Cardio Negative for no murmurs Cardio Narrative: 4-6 systolic ejection murmur. Rate: regular rate Rhythm: regular rhythm Heart Sounds: S1 normal and S2 normal GI normal to inspection, nondistended, normoactive bowel sounds, soft to palpation, non-tender, non-distended and no masses Inspection: Negative for abdominal distention Auscultation: normoactive bowel sounds Palpation: Negative for tender or guarding Back/Spine no CVA tenderness General Back: Negative for CVA tenderness Cervical Spine: Negative for cervical spine tenderness Thoracic Spine / Upper Back: Negative for thoracic spinal tenderness Lumbar Spine / Lower Back: Negative for lumbar spinal tenderness Extremity normal to inspection General Extremety ED: Negative for deformity, edema or tenderness General Extremity: Negative for deformity or edema Neuro oriented x3, CN's II-XII intact bilaterally and no sensory deficits noted Sensorium / Orientation: alert, oriented to person, oriented to place and orie nted to time; Negative for orientation impaired, confused, lethargic or stuporous Speech: speech normal Motor Exam: strength 5/5 throughout Psych mental status grossly normal Appearance: Negative for unkempt Attitude: No agitated Mood & Affect: Negative for depressed, anxious or tearful Attention / Concentration: Negative for other Skin no wounds General Skin Exam: Negative for jaundice Lesions: no lesions Rashes: no rashes Trauma: Negative for abrasion or laceration NIHSS NIHSS Initial: 1a Level of Consciousness: 0 1b LOC Questions (Score 2 if aphasic/stupor): 0 1c LOC Commands (Only score 1st attempt): 0 2 Best Gaze (If aphasic, use reflexive mvmts.): 0 3 Visual: 0 4 Facial Palsy: 0 5 Motor Arm Right (UN = amputation/fusion): 0 5 Motor Arm Left: 0 6 Motor Leg Right: 0 6 Motor Leg Left: 0 7 Limb ataxia (Only + if out of proportion): 0 8 Sensory (Aphasia/stupor=0 or 1, coma=2): 0 9 Best Language: 0 10 Dysarthria (mute, coma=2, intubated=UN): 0 11 Extinction and Inattention (only scored if +): 0 Total Score: 0 MDM MDM MDM Narrative Medical decision making narrative: 62-year-old diabetic male with intermittent dizziness. Staggering gait. Ongoing since Sunday. Prior similar history. Normal exam and neurologic exam while lying in bed. NIH is 0. He will undergo a CAT scan and CTA of his head and neck. Patient doing well at 11:40 AM. Neuro exam remains normal. He ambulated in the hallway quite well at the nurses without any ataxia or difficulty. Will be discharged to home. History & Record Review Discussion w/independent historian: Patient and Significant other Additional record(s) reviewed:: Prior inpatient record, Prior outpatient record, Prior ED visit and Prior labs Lab Data Attestation: I reviewed the patient's lab results. Lab results narrative: CBC shows a white count of 7. H&H 12.9 and 40. Platelets 203. PT/INR PTT are normal. Electrolytes unremarkable gap of 5 normal BUN and creatinine. Glucose is elevated at 331 he is diabetic. Sugars have been running high. Troponin 31. CT of his brain read as no acute process per the radiologist. Labs: Laboratory Results - last 24 hr 08/28/22 08/28/22 08/28/22 10:10 10:10 10:10 WBC 7.0 RBC 4.38 L Hgb 12.9 L Hct 40.9 MCV 93.4 MCH 29.5 MCHC 31.5 L RDW Std Deviation 51.7 H RDW Coeff of Yvonne 14.9 H Plt Count 203 MPV 9.3 Immature Gran % (Auto) 2.200 H Neut % (Auto) 87.5 H Lymph % (Auto) 2.7 L Knox % (Auto) 5.3 Eos % (Auto) 0.9 Baso % (Auto) 1.4 H Absolute Neuts (auto) 6.1 Absolute Lymphs (auto) 0.19 L Nucleated RBC % 0 Differential Comment COMMENT PT 13.0 INR 1.0 APTT 28.9 Sodium 136 Potassium 4.1 Chloride 104 Carbon Dioxide 27.0 Anion Gap 5 BUN 14 Creatinine 0.72 Estim Creat Clear Calc 90.16 Est GFR (MDRD) Af Amer 142 Est GFR (MDRD) Non-Af 117 BUN/Creatinine Ratio 19.5 Glucose 331 H Calcium 9.0 Troponin I High Sens 31 POC Glucose 08/28/22 10:22 WBC RBC Hgb Hct MCV MCH MCHC RDW Std Deviation RDW Coeff of Yvonne Plt Count MPV Immature Gran % (Auto) Neut % (Auto) Lymph % (Auto) Knox % (Auto) Eos % (Auto) Baso % (Auto) Absolute Neuts (auto) Absolute Lymphs (auto) Nucleated RBC % Differential Comment PT INR APTT Sodium Potassium Chloride Carbon Dioxide Anion Gap BUN Creatinine Estim Creat Clear Calc Est GFR (MDRD) Af Amer Est GFR (MDRD) Non-Af BUN/Creatinine Ratio Glucose Calcium Troponin I High Sens POC Glucose 343 H Radiography Chest X-Ray - ED: 1 View, Read by ED Physician, Heart, Lungs, Mediastinum, Bony Structures, No Acute Disease and Chronic Changes Diagnostic Testing: Clinical Impression(s) from Imaging Studies Brain CT 08/28/22 09:19 IMPRESSION: Chronic involutional changes of the brain. N.B. : The above Results were Read Back by Canelo Melvin MD to Dr Peter MD, and understanding confirmed on 08/28/2022 10:59:23 (ET). Electronically Signed: Canelo Melvin MD at 11:00 EDT , ADDENDUM: 08/28/22 1107 IMPRESSION: Chronic involutional changes of the brain. N.B. : The above Results were Read Back by Canelo Melvin MD to Dr Peter MD, and understanding confirmed on 08/28/2022 10:59:23 (ET). Electronically Signed: Canelo Melvin MD at 11:00 EDT , Head/Neck CTA 08/28/22 09:26 IMPRESSION: Atherosclerotic plaque formation at the carotid bifurcations bilaterally. Less than 50% narrowing on the right side and 50-69% narrowing on the left side. Electronically Signed: Canelo Melvin MD at 11:04 EDT , Chest X-Ray 08/28/22 10:35 IMPRESSION: No acute abnormality is seen. Electronically Signed: Canelo Melvin MD at 11:15 EDT , Chest x-ray, portable, single view shows no acute abnormality. Normal cardiac silhouette. Normal mediastinum. Med port in place. CT of the brain is read by the radiologist showed no acute abnormality. Chronic changes. CTA showed plaque formation but otherwise no acute abnormality. Rhythm Strip Rhythm Strip: Sinus Rhythm Rate: 90 Ectopy: None EKG Initial EKG: Attestation: I personally reviewed and interpreted this EKG as follows: Interpretation: Sinus Rhythm and No Acute Injury Pattern Comments: Normal sinus rhythm rate of 90 no acute signs of acute [place] or ischemia. Unchanged from prior EKG from July of this year. Prior EKG tracings: available for review Prior: Unchanged Discharge Plan Triage Chief Complaint: Neuro S/Sx ED Provider: Kendall Green Dx/Rx/DC Orders Clinical Impression: Dizziness, Nonrheumatic aortic (valve) stenosis, Non-Hodgkin lymphoma, Hyperglycemia due to diabetes mellitus Instructions: ED Dizziness, Uncertain Cause Prescriptions: No Action atorvastatin 40 mg tablet 40 mg PO QHS omeprazole 40 mg capsule,delayed release(DR/EC) 40 mg PO DAILY PRN glipizide 2.5 mg tablet extended release 24hr 2.5 mg PO DAILY Label Comments: TAKE ONE TABLET BY MOUTH EVERY DAY venlafaxine 75 mg capsule,extended release 24hr 75 mg PO DAILY Label Comments: TAKE ONE CAPSULE BY MOUTH DAILY levothyroxine 50 mcg tablet 50 mcg PO levofloxacin 750 mg tablet 750 mg PO DAILY Qty: 5 0RF Primary Care Provider: Miguel Ángel Wright Referrals: Miguel Ángel Wright MD [Primary Care Provider] - 3-5 Days Activity Restrictions/Additional Instructions: Your CAT scans look good. Your labs look good except for your elevated blood sugar. Watch that closely. Follow-up with your primary care physician next several days to be reevaluated ensure you are doing well. I do not have a specific cause of your dizziness. It could be vertigo but your exam is only not consistent with that at this time. There is no signs of any stroke. Return if feeling worse. Disposition Disposition: Home, Self Care
--- NOTE | 2022-08-28 09:26 | CT_ITS ---
STUDY: CTA HEAD AND NECK WITH CONTRAST REASON FOR EXAM: Male, 62 years old. Ataxia RADIATION DOSAGE (If Supplied By Facility): CTDIvol = ( 14.16 ) mGy, DLP = ( 578.71 ) mGycm TECHNIQUE: CT angiography was performed with a multi-detector CT scanner. Data acquisition was obtained from the skull base through the vertex following intravenous administration of IV 100mL [id number]-[id number]. MIP images were reconstructed from the axial data set. Post-processing of the angiographic images was performed, with multiplanar reformation and 3D reconstruction. Individualized dose optimization techniques were used for this CT. COMPARISON: No relevant priors. FINDINGS: Normal bilateral petrous carotid arteries. There is calcified plaque formation of the right cavernous carotid artery, without a cross-sectional luminal stenosis. There is calcified plaque formation of the left cavernous carotid artery, without a cross-sectional luminal stenosis. Normal right A1 segments of the anterior cerebral artery. Normal left A1 segments of the anterior cerebral artery. Normal intact anterior communicating artery (ACOM). Normal bilateral A2 segments of the anterior cerebral arteries. Normal right M1 and M2 segments of the middle cerebral arteries, with a normal M1 bifurcation. Normal left M1 and M2 segments of the middle cerebral arteries, with a normal M1 bifurcation. Normal right posterior communicating artery (PCOM). Normal left posterior communicating artery (PCOM). Normal bilateral vertebral arteries. Normal basilar artery with a normal basilar bifurcation. The visualized bilateral superior cerebellar (SCA) arteries are normal. Normal bilateral P1, P2 and visualized P3 segments of the posterior cerebral arteries. There is no demonstrated aneurysm of the [place] of [place]. Mild degree of cerebral atrophy. A left-sided sarah catheter seen with the tip in the superior vena cava. There is a 1.3 cm x 1 cm cyst in the right lobe of the thyroid gland. AORTIC ARCH: There is atherosclerotic calcific plaque formation of the aortic arch and great vessels arising from the aortic arch, without a hemodynamically significant stenosis. There is a normal origin of the brachiocephalic, left common carotid, and left subclavian arteries. RIGHT CAROTID ARTERIES: Normal right common carotid artery (CCA). Normal right common carotid bulb. There is mild atherosclerotic plaque formation of the origin of the right internal carotid artery with less than 50% cross sectional diameter stenosis. Normal visualized cervical portion of the right internal carotid artery. Normal origin of the right external carotid artery (ECA). LEFT CAROTID ARTERIES: Normal left common carotid artery (CCA). Normal left common carotid bulb. There is moderate atherosclerotic plaque formation of the origin of the left internal carotid artery with an estimated stenosis of 50-69% stenosis. Normal visualized cervical portion of the left internal carotid artery. Normal origin of the left external carotid artery (ECA). VERTEBRAL ARTERIES: Normal bilateral vertebral arteries. CT/CTA Head AND Neck W/ Contrast IMPRESSION: Atherosclerotic plaque formation at the carotid bifurcations bilaterally. Less than 50% narrowing on the right side and 50-69% narrowing on the left side. Electronically Signed: Canelo Melvin MD at 11:04 EDT ,
[2022-08-28 10:00] VITALS: BMI 28.4
[2022-08-28 10:16] LABS: Absolute Lymphocyte Count 0.19 X10^3/uL (0.83-4.51); Absolute Neutrophil Count 6.1 X10^3/uL (2.0-7.7); Basophil% 1.4 % (0-1); Eosinophil# 0.06 X10^3/uL; Eosinophils% 0.9 % (0-5); Hematocrit 40.9 % (40-54); Hemoglobin 12.9 g/dL (13.0-16.5); Lymphocyte # 0.19 X10^3/ul (0.83-4.51); Lymphocyte % 2.7 % (19-41); Mean Corp Hgb Conc 31.5 g/dL (32-36); Mean Corpuscular Hgb 29.5 pg (27.0-32.0); Mean Corpuscular Volume 93.4 fL (80-94); Mean Platelet Vol. 9.3 fl (6.2-12.0); Monocyte# 0.37 X10^3/uL; Monocyte% 5.3 % (0-10); NRBC Flagged by Analyzer 0 % (0-5); Neutrophil # 6.09 X10^3/uL (2.7-7.7); Neutrophil % 87.5 % (47-70); POSITIVE DIFFERENTIAL YES; Platelet Count 203 K/mm3 (150-450); RBC Distribution Width CV 14.9 % (11.6-14.6); RBC Distribution Width SD 51.7 fl (35.1-43.9); Red Blood Count 4.38 M/mm3 (4.6-6.2)
[2022-08-28 10:24] LABS: Differential Indicated SCAN CRITERIA MET
[2022-08-28 10:34] LABS: Partial Thromboplast Time 28.9 Seconds (24.1-36.2)
--- NOTE | 2022-08-28 10:35 | RAD_ITS ---
STUDY: X-RAY CHEST REASON FOR EXAM: Male, 62 years old. Neuro deficit, acute, stroke suspected TECHNIQUE: Single AP portable view of the chest. COMPARISON: Comparison comparison July 31, 2022. FINDINGS: A left-sided Port-A-Cath is noted in the right atrium. EKG electrodes are seen. The lungs are clear and expanded. There is no demonstrated pleural abnormality. Normal size heart. Normal mediastinum and gary. Normal visualized pulmonary arteries. There is atherosclerotic calcification of the aortic arch with tortuosity. There are diffuse degenerative changes of the visualized thoracic spine. Normal visualized ribs, clavicles, and shoulders. There is no demonstrated abnormality of the visualized soft tissue structures of the upper abdomen. RAD/Chest 1 View IMPRESSION: No acute abnormality is seen. Electronically Signed: Canelo Melvin MD at 11:15 EDT ,
[2022-08-28 10:41] LABS: Bedside Glucose 343 mg/dL (74-106)
--- NOTE | 2022-08-28 10:41 | ED.RN ---
per dr. sonja clinton to do [facility].
[2022-08-28 10:43] LABS: Anion Gap 5 (5-15); BUN 14 mg/dL (7-18); BUN/Creat Ratio 19.5 RATIO (10-20); Chloride 104 mmol/L (98-107); Creatinine, Serum 0.72 mg/dL (0.70-1.30); EST Glomerular Filtration Rate 117 mL/min (>60); Est Glom Filt Rate - Afr Amer 142 mL/min (>60); Estimated Creatinine Clearance 90.16 ml/min; Glucose 331 mg/dL (74-106); Potassium 4.1 mmol/L (3.5-5.1); Sodium Level 136 mmol/L (136-145); Troponin-I HS 31 pg/mL (3.0-78.0)
[2022-08-28 11:19] VITALS: BP 123/79; PULSE 87; RESP 15; O2SAT 96
[2022-08-28 11:32] VITALS: BP 123/79; PULSE 87; RESP 15; O2SAT 96
[2022-08-28 11:48] VITALS: BP 123/79; PULSE 88; RESP 14; O2SAT 98
[2022-08-28] MEDS: 0.9% Saline Lock 10 ML Syringe IV (12:15)
== END 2022-08-28 12:19 | disposition home or self-care (01) ==
PROVIDERS: Emergency Provider Emergency Medicine; PCP Internal Medicine; Visit Provider Emergency Medicine
DX: R42 Dizziness and giddiness (principal); C85.90 Non-Hodgkin lymphoma, unspecified, unspecified site; E11.65 Type 2 diabetes mellitus with hyperglycemia; I35.0 Nonrheumatic aortic (valve) stenosis; E78.5 Hyperlipidemia, unspecified; R26.0 Ataxic gait; F17.210 Nicotine dependence, cigarettes, uncomplicated; Z79.890 Hormone replacement therapy; Z79.899 Other long term (current) drug therapy
CPT/HCPCS: 36591; 70450; 70496; 70498; 71045; 80048; 82962; 84484; 85025; 85610; 85730; 93005; 99282; Q9967

== ENCOUNTER 2022-08-30 15:59 | Inpatient (IN) | payer OTHER, SELFPAY ==
[2022-08-30] VITALS (12 sets, daily range): BP systolic 81–126; BP diastolic 52–69; PULSE 115–132; RESP 16–30; TEMP 36.4–38.5; O2SAT 91–98; BMI 28.9; BMI 28.8
--- NOTE | 2022-08-30 16:33 | EKG12_ITS ---
Test Reason : FEVER Blood Pressure : / mmHG Vent. Rate : 125 BPM Atrial Rate : 125 BPM P-R Int : 148 ms QRS Dur : 092 ms QT Int : 314 ms P-R-T Axes : 008 045 025 degrees QTc Int : 453 ms Sinus tachycardia Nonspecific T wave abnormality Abnormal ECG Confirmed by MEENA CANO, YARELIS ([id number]), photography editor BIENVENIDO DUTTON ([id number]) on 09/01/2022 9:30:19 AM Referred By: EDUAR Confirmed By:YARELIS ROBLEDO MD
[2022-08-30] MEDS: 0.9% Normal Saline 1,000 ML 999 ML IV ×3 (17:10→20:42)
--- NOTE | 2022-08-30 17:10 | RAD_ITS ---
STUDY: X-RAY CHEST REASON FOR EXAM: Male, 62 years old. Fever beginning after lunch. 103.3 degrees. Fairly lethargic. History of cancer. TECHNIQUE: Single AP portable view of the chest. COMPARISON: August 28, 2022 FINDINGS: Stable left jugular Port-A-Cath. The lungs are clear and expanded. There is no demonstrated pleural abnormality. Normal size heart. Normal mediastinum and gary. Normal visualized pulmonary arteries. Normal visualized aortic arch and descending thoracic aorta. There are diffuse degenerative changes of the visualized thoracic spine. There is degenerative osteoarthritis of the bilateral shoulders. There is no demonstrated abnormality of the visualized soft tissue structures of the upper abdomen. RAD/Chest 1 View (Portable) IMPRESSION: Degenerative changes, as described above. No demonstrated acute cardiopulmonary process. No major interval change. Electronically Signed: Elliott Sal DO at 17:27 EDT ,
--- NOTE | 2022-08-30 17:22 | EX.ED.DYSGE1 ---
HPI History of Present Illness Chief Complaint: Fever Narrative Narrative: 62-year-old male with history reported history of lung cancer. He states he got the chemotherapy in July but does not know what chemotherapy is on. He states he is Dr. Alvarez. He states he has been run down the last couple of days. He states he had a fever today. He keeps falling asleep during the interview. He is arousable to voice however. He states he is got a slight cough without production of sputum. He has no nausea or vomiting. Denies chest pain. PFSH PFS Medical History Adjustment disorder Anxiety and depression CAD (coronary artery disease) Hyperlipidemia Hypothyroidism Nicotine dependence Non-Hodgkin lymphoma Nonrheumatic aortic (valve) stenosis Tobacco use Tubular adenoma of colon Type 2 diabetes mellitus without complication Urolithiasis Home Medications atorvastatin 40 mg tablet 40 mg PO QHS Check with primary doctor 09/30/19 [History Last Taken Unknown] omeprazole 40 mg capsule,delayed release 40 mg PO DAILY PRN gerd 09/30/19 [History Last Taken Unknown] levothyroxine 50 mcg tablet 50 mcg PO DAILY Check with primary doctor 11/11/21 [History Last Taken Unknown] venlafaxine 75 mg capsule,extended release 24 hr 75 mg PO DAILY Check with primary doctor 11/11/21 [History Last Taken Unknown] Allergy/AdvReac Type Severity Reaction Status Date / Time meclizine AdvReac Other Verified 08/30/22 15:59 Penicillins AdvReac Rash Verified 08/30/22 15:59 Family History Father Myocardial infarction Heart disease Hypertension Mother Heart disease Cancer Brother Hypertension Thyroid disorder Sister Breast cancer Surgical History History of extraction of renal calculus History of lymph node biopsy S/P cholecystectomy S/P vascular surgery Social History household members: spouse Smoking Status: Current every day smoker tobacco type: cigarettes how long ago did patient quit smoking: Former chew tobacco, former cigars, now only occasional cigarette. alcohol intake: current alcohol intake frequency: a few times a week Alcohol type: beer substance use type: does not use caffeine: Yes Type: coffee Number of servings: 1 ROS ROS ED Constitutional Constitutional ED: Reports fever(s) Eyes Eyes: Denies blurry vision or change in vision ENT ENT ED: Denies rhinorrhea or sore throat Cardiovascular Cardiovascular: Denies chest pain or palpitations Respiratory/Chest Respiratory/Chest: Reports cough Gastrointestinal Gastrointestinal: Denies abdominal pain, nausea or vomiting Genitourinary Genitourinary ED: Denies dysuria or hematuria Musculoskeletal Musculoskeletal: Denies arthralgias Integumentary Denies abscess Neurologic Neurologic: Denies headache(s) or paresthesias EXAM Physical Exam Const Vital Signs: 08/30/22 16:00 08/30/22 16:20 08/30/22 16:22 Temperature 100.7 F H 101.3 F H Temperature Source Temporal Oral Pulse Rate 132 H 122 H Respiratory Rate 18 30 H Respiratory Effort Normal Non-Labored Respiratory Pattern Normal Blood Pressure 115/62 126/69 H Blood Pressure Mean 79 88 Pulse Ox 94 92 Oxygen Delivery Method Room Air Room Air Oxygen Flow Rate (L/min) 08/30/22 16:33 08/30/22 19:02 08/30/22 19:04 Temperature 99.8 F H Temperature Source Oral Pulse Rate 119 H Respiratory Rate 16 Respiratory Effort Respiratory Pattern Blood Pressure 90/62 Blood Pressure Mean 71 Pulse Ox 93 Oxygen Delivery Method Room Air Room Air Oxygen Flow Rate (L/min) 94 08/30/22 19:05 08/30/22 20:27 Temperature 99.8 F H 99.5 F H Temperature Source Oral Temporal Pulse Rate 120 H 116 H Respiratory Rate 18 26 H Respiratory Effort Respiratory Pattern Blood Pressure 90/62 87/60 L Blood Pressure Mean 71 69 Pulse Ox 98 91 Oxygen Delivery Method Room Air Room Air Oxygen Flow Rate (L/min) Positive well nourished General Appearance ED: NAD; Negative for pallor HEENT Reports moist mucous membranes Eyes PERRL and EOMs intact bilaterally General Eye ED: Negative for pale conjunctiva or scleral icterus Chest Wall inspection of chest normal and palpation of chest normal Resp normal respiratory effort and clear to auscultation bilaterally Auscultation: Negative for rales, rhonchi or wheezes Cardio regular rhythm Rate: tachycardic GI normal to inspection, nondistended, normoactive bowel sounds Back/Spine no CVA tenderness Extremity normal to inspection Neuro oriented x3 Sensorium / Orientation: alert Motor Exam: strength 5/5 throughout and general weakness Skin no rashes or lesions noted General Skin Exam: Negative for jaundice or pallor Sepsis Attestation Sepsis Alert: Yes Sepsis Attestation: Agree w/Sepsis Date exam was performed: 08/30/22 Possible Source of Sepsis: Pulmonary Sepsis Organ Dysfunction Criteria Present: SBP < 90 mmHg or MAP < 65 mmHg and New/Unexplained change in mental status Fluid Resuscitation Fluid Resuscitation ordered: 30 ml/kg fluid bolus ordered MDM MDM MDM Narrative Medical decision making narrative: Patient presenting with fever. He is a cancer patient on chemotherapy. Last treatment was in July. He is tachycardic, febrile, tachypneic. Sepsis protocol was initiated. Patient was not hypotensive. He was given a liter of normal saline, I suspected a pulmonary source given the patient's slight hypoxia. He is a little bit confused as well. He falls asleep during exam and history taking but he is able to respond to voice and wakes up. He follows all commands. CBC shows white blood cell count of 14.8. Hemoglobin hematocrit are stable. Platelets are normal. PT/INR normal. Lactic acid within normal limits. Renal function and electrolytes are normal with exception of a potassium of 3.3. Urinalysis was negative for infection. EKG on my interpretation showed a sinus tachycardia at a rate of 125 bpm without sign of ischemic change. High-sensitivity troponin was 54 and therefore within normal limits. Patient complaining of some left-sided pain and I did obtain a CT chest with IV contrast which shows a left-sided retrocardiac pneumonia. Patient treated with Rocephin azithromycin. To treat his pain I did give him some Toradol and morphine. His blood pressure did drop a little which I suspect is from the morphine as he has not had a low blood pressure since 5. He was given additional normal saline and his third liter is going in now. He is awake and alert and speaking. He is definitely improved mentally. Patient discussed with hospitalist for admission. Impression: 1. Pneumonia 2. Sepsis 3. Delirium Lab Data Attestation: I reviewed the patient's lab results. Labs: Laboratory Results - last 24 hr 08/30/22 08/30/22 08/30/22 16:57 16:57 16:57 WBC 14.8 H RBC 4.50 L Hgb 13.3 Hct 40.9 MCV 90.9 MCH 29.6 MCHC 32.5 RDW Std Deviation 49.7 H RDW Coeff of Yvonne 14.9 H Plt Count 189 MPV 9.4 Immature Gran % (Auto) 1.100 H Neut % (Auto) 90.1 H Lymph % (Auto) 1.0 L Walsh % (Auto) 7.2 Eos % (Auto) 0.1 Baso % (Auto) 0.5 Absolute Neuts (auto) 13.3 H Absolute Lymphs (auto) 0.15 L Nucleated RBC % 0 Differential Comment SEE COMMENT Diff Path Review May foll Platelet Estimate ADEQUATE RBC Morphology N CHROM Anisocytosis RARE Macrocytosis RARE PT 13.8 INR 1.1 APTT 35.3 Sodium 133 L Potassium 3.3 L Chloride 98 Carbon Dioxide 26.0 Anion Gap 9 BUN 12 Creatinine 0.79 Estim Creat Clear Calc 82.17 Est GFR (MDRD) Af Amer 127 Est GFR (MDRD) Non-Af 105 BUN/Creatinine Ratio 15.2 Glucose 185 H Lactic Acid Calcium 8.9 Phosphorus Magnesium Total Bilirubin 0.90 AST 20 ALT 30 Alkaline Phosphatase 83 Troponin I High Sens 54 Total Protein 6.4 Albumin 3.2 Globulin 3.2 Albumin/Globulin Ratio 1.0 Urine Color Urine Clarity Urine pH Ur Specific [place] Urine Protein Urine Glucose (UA) Urine Ketones Urine Occult Blood Urine Nitrite Urine Bilirubin Urine Urobilinogen Ur Leukocyte Esterase Urine RBC Urine WBC Ur Squamous Epith Cells Urine Bacteria Urine Mucus 08/30/22 08/30/22 08/30/22 16:57 16:57 18:45 WBC RBC Hgb Hct MCV MCH MCHC RDW Std Deviation RDW Coeff of Yvonne Plt Count MPV Immature Gran % (Auto) Neut % (Auto) Lymph % (Auto) Walsh % (Auto) Eos % (Auto) Baso % (Auto) Absolute Neuts (auto) Absolute Lymphs (auto) Nucleated RBC % Differential Comment Diff Path Review Platelet Estimate RBC Morphology Anisocytosis Macrocytosis PT INR APTT Sodium Potassium Chloride Carbon Dioxide Anion Gap BUN Creatinine Estim Creat Clear Calc Est GFR (MDRD) Af Amer Est GFR (MDRD) Non-Af BUN/Creatinine Ratio Glucose Lactic Acid 1.2 Calcium Phosphorus 1.8 L Magnesium 1.3 L Total Bilirubin AST ALT Alkaline Phosphatase Troponin I High Sens Total Protein Albumin Globulin Albumin/Globulin Ratio Urine Color Yellow Urine Clarity Clear Urine pH 6.0 Ur Specific [place] 1.010 Urine Protein 30 H Urine Glucose (UA) Normal Urine Ketones 5 H Urine Occult Blood 10 H Urine Nitrite Negative Urine Bilirubin Negative Urine Urobilinogen Normal Ur Leukocyte Esterase 25 H Urine RBC 0 SEEN Urine WBC 0 SEEN Ur Squamous Epith Cells 0 SEEN Urine Bacteria 0 SEEN Urine Mucus 0 SEEN Radiography Diagnostic Testing: Clinical Impression(s) from Imaging Studies Chest X-Ray 08/30/22 17:10 IMPRESSION: Degenerative changes, as described above. No demonstrated acute cardiopulmonary process. No major interval change. Electronically Signed: Elliott Sal DO at 17:27 EDT Reading Location ID and State: [facility] / [place] Tel [phone], Service support , Chest CT 08/30/22 18:56 IMPRESSION: 1. Left lower lobe retrocardiac pneumonia . 2. Atherosclerotic changes of the thoracic aorta and coronary arteries. Electronically Signed: Elliott Sal DO at 19:50 EDT Reading Location ID and State: [facility] / [place] Tel [phone], Service support , Discharge Plan Disposition Disposition: Acute Care Hospital [facility] Discharge Date/Time: 08/30/22 21:05
[2022-08-30 17:27] LABS: Absolute Lymphocyte Count 0.15 X10^3/uL (0.83-4.51); Absolute Neutrophil Count 13.3 X10^3/uL (2.0-7.7); Basophil# 0.08 X10^3/uL; Basophil% 0.5 % (0-1); Eosinophil# 0.02 X10^3/uL; Eosinophils% 0.1 % (0-5); Hematocrit 40.9 % (40-54); Hemoglobin 13.3 g/dL (13.0-16.5); Lymphocyte # 0.15 X10^3/ul (0.83-4.51); Mean Corp Hgb Conc 32.5 g/dL (32-36); Mean Corpuscular Hgb 29.6 pg (27.0-32.0); Mean Corpuscular Volume 90.9 fL (80-94); Mean Platelet Vol. 9.4 fl (6.2-12.0); Monocyte# 1.07 X10^3/uL; Monocyte% 7.2 % (0-10); NRBC Flagged by Analyzer 0 % (0-5); Neutrophil # 13.34 X10^3/uL (2.7-7.7); Neutrophil % 90.1 % (47-70); POSITIVE DIFFERENTIAL YES; POSITIVE MORPHOLOGY YES; Platelet Count 189 K/mm3 (150-450); RBC Distribution Width CV 14.9 % (11.6-14.6); RBC Distribution Width SD 49.7 fl (35.1-43.9); White Blood Count 14.8 K/mm3 (4.4-11.0)
[2022-08-30] MEDS: Acetaminophen 500 MG Tablet 1000 MG PO (17:34)
[2022-08-30 17:36] LABS: International Normalized Ratio 1.1; Prothrombin Time (Protime)PT. 13.8 SECONDS (11.7-14.9)
[2022-08-30 17:37] LABS: Partial Thromboplast Time 35.3 Seconds (24.1-36.2)
[2022-08-30 17:49] LABS: Differential Indicated SCAN CRITERIA MET
[2022-08-30 17:52] LABS: AST(SGOT) 20 U/L (15-37); Alanine Aminotransfer ALT/SGPT 30 U/L (16-61); Albumin, Serum 3.2 g/dL (3.2-5.0); Alkaline Phosphatase 83 U/L (45-117); Anion Gap 9 (5-15); BUN 12 mg/dL (7-18); BUN/Creat Ratio 15.2 RATIO (10-20); Calcium,Total 8.9 mg/dL (8.5-10.1); Chloride 98 mmol/L (98-107); Creatinine, Serum 0.79 mg/dL (0.70-1.30); EST Glomerular Filtration Rate 105 mL/min (>60); Est Glom Filt Rate - Afr Amer 127 mL/min (>60); Estimated Creatinine Clearance 82.17 ml/min; Globulin 3.2 g/dL (2.2-4.2); Glucose 185 mg/dL (74-106); Potassium 3.3 mmol/L (3.5-5.1); Protein, Total 6.4 g/dL (6.4-8.2); Sodium Level 133 mmol/L (136-145); Troponin-I HS 54 pg/mL (3.0-78.0)
[2022-08-30 17:53] LABS: Lactic Acid 1.2 mmol/L (0.4-1.9)
[2022-08-30 17:59] LABS: Platelet Estimate ADEQUATE (ADEQ); Red Cell Morphology N CHROM NORMAL (NORM C&C)
[2022-08-30 18:00] LABS: Anisocytosis RARE; Macrocytosis RARE
[2022-08-30 18:51] LABS: Bacteria 0 SEEN /hpf (None Seen); Mucous, Urine 0 SEEN /hpf (<or=2+); Red Blood Cells-Urine 0 SEEN /hpf (0-5); Squamous Epithelial Cells - UA 0 SEEN /hpf (0-5); White Blood Cells 0 SEEN /hpf (0-5)
[2022-08-30 18:56] LABS: Color, Urine Yellow (Yellow); Glucose, Dipstick Normal (Normal); Ketone-Dipstick 5 mg/dl (Negative); Leukocyte Esterase-Dipstick 25 /ul (Negative); Nitrite-Dipstick Negative (Negative); Occult Blood-Urine 10 /ul (Negative); Protein-Dipstick 30 mg/dl (Negative); Urine Bilirubin Dipstick Negative (Negative); Urine Clarity Clear (Clear); Urine Urobilinogen Normal (Normal)
--- NOTE | 2022-08-30 18:56 | CT_ITS ---
INDICATION: Lethargy. Cough. History of non-Hodgkin''s lymphoma 5 years ago. Lung cancer. EXAMINATION: CT CHEST WITHOUT CONTRAST - CT Chest W/O Contrast Injection TECHNIQUE: Helically acquired images were obtained of the chest. A radiation dose optimization technique was used for this scan. IV Contrast dosage and agent: None. COMPARISON: Chest, August 30, 2021. PET/CT scan, May 23, 2022. FINDINGS: Left jugular Port-A-Cath. LUNGS, PLEURA AND LARGE AIRWAYS: There is a left lower lobe pulmonary infiltrate with consolidation. Associated left pleural effusion. No pneumothorax. Lungs are otherwise clear. THYROID: No thyroid lesions. HEART AND PERICARDIUM: Heart size is normal. No pericardial effusion. Ossifications at the root of the aorta along the mitral valve plane. CORONARY ARTERIES: Coronary artery calcification are present VESSELS: Mild atherosclerotic changes of the thoracic aorta without aneurysm. Normal pulmonary arteries. MEDIASTINUM AND LISA: No mediastinal or hilar adenopathy. Esophagus is unremarkable. No hiatal hernia. UPPER ABDOMEN: Nonobstructing 3 mm calcification upper pole of the right kidney. BONES: Degenerative changes of the thoracic spine without fracture or subluxation. No lytic or blastic lesions. CT/Chest without Contrast IMPRESSION: 1. Left lower lobe retrocardiac pneumonia . 2. Atherosclerotic changes of the thoracic aorta and coronary arteries. Electronically Signed: Elliott Sal DO at 19:50 EDT Reading Location ID and State: [facility] / [place] Tel [phone], Service support ,
[2022-08-30] MEDS: Ketorolac 15 MG/ML Vial IV (19:04)
[2022-08-30] MEDS: Morphine 2 MG/ML Syringe IV (19:05)
[2022-08-30] MEDS: Ceftriaxone 1 GM/50 ML BAG IV (20:15)
--- NOTE | 2022-08-30 20:17 | PCM.HP.STD ---
HPI - General General Date of Admission: 08/30/22 Date of Service: 08/30/22 Chief Complaint: Fatigue, malaise, cough, fever. HPI Narrative The patient is a 62 y/o M w/ PMHx: Nonobstructive CAD, Severe Aortic Stenosis, Diabetes mellitus type II, Anxiety and Depression, Hypothyroidism, GERD, HLD, Tobacco use, Non-Hodgkin lymphoma following with Dr. Alvarez with ongoing chemotherapy of uncertain specific kind who presents to the [facility] ED on 08/30/22 with increased fatigue, malaise, fever onset today, increased lethargy, sleeping more, decreased oral intake and slight cough without marked sputum production or notable dyspnea prompting eventual ED evaluation. does report at home he was notable confused and initially for ED physician was also confused especially while notably febrile. Currently fever down although still flushed and warm but mental status back at baseline. No one else in the house has been ill recently. Work-up in the ED included initially T1 100.7 with Tmax 101.3 and most current 99.8, heart rate initially 132 with most recent repeat 120, BP initially 115/62 with most recent repeat 87/60, respiratory rate 18, 94% oxygenation on room air, CBC with WC 14.8, hemoglobin 13.3, platelet 189 with left shift and lymphopenia, unremarkable coags, CMP with sodium 133, potassium 3.3, glucose 185, lactic acid 1.2, troponin 54, unremarkable hepatic profile, urinalysis with no obvious evidence of UTI, urine culture pending per ED, blood culture x2 pending per ED, rapid SARS COVID and influenza antigens negative, chest x-ray with degenerative changes with no acute cardiopulmonary findings, CT of the chest with left lower lobe retrocardiac pneumonia as well as atherosclerotic changes of the thoracic aorta and coronary arteries. In the ED patient administered NS 2L, morphine sulfate 2 mg IV x1, Toradol 15 mg IV x1 as well as Tylenol 1000 mg p.o. x1, IV rocephin and azithromycin. [facility] Medical History Adjustment disorder Anxiety and depression CAD (coronary artery disease) Hyperlipidemia Hypothyroidism Nicotine dependence Non-Hodgkin lymphoma Nonrheumatic aortic (valve) stenosis Tobacco use Tubular adenoma of colon Type 2 diabetes mellitus without complication Urolithiasis Home Medications atorvastatin 40 mg tablet 40 mg PO QHS 09/30/19 [History Last Taken Unknown] omeprazole 40 mg capsule,delayed release 40 mg PO DAILY PRN 09/30/19 [History Last Taken Unknown] glipizide 2.5 mg tablet, extended release 24 hr 2.5 mg PO DAILY 11/11/21 [History Last Taken Unknown] levothyroxine 50 mcg tablet 50 mcg PO 11/11/21 [History Last Taken Unknown] venlafaxine 75 mg capsule,extended release 24 hr 75 mg PO DAILY 11/11/21 [History Last Taken Unknown] levofloxacin 750 mg tablet 750 mg PO DAILY #5 tabs 07/31/22 [Rx Last Taken Unknown] Allergy/AdvReac Type Severity Reaction Status Date / Time meclizine AdvReac Other Verified 08/30/22 15:59 Penicillins AdvReac Rash Verified 08/30/22 15:59 Family History Father Myocardial infarction Heart disease Hypertension Mother Heart disease Cancer Brother Hypertension Thyroid disorder Sister Breast cancer Surgical History History of extraction of renal calculus History of lymph node biopsy S/P cholecystectomy S/P vascular surgery Social History household members: spouse Smoking Status: Current every day smoker tobacco type: cigarettes how long ago did patient quit smoking: Former chew tobacco, former cigars, now only occasional cigarette. alcohol intake: current alcohol intake frequency: a few times a week Alcohol type: beer substance use type: does not use caffeine: Yes Type: coffee Number of servings: 1 ROS ROS Narrative Admission Review of Systems: CONSTITUTIONAL: No weight loss, + fever, weakness or fatigue. HEENT: Eyes: No visual loss, blurred vision, double vision or yellow sclerae. Ears, Nose, Throat: No hearing loss, sneezing, congestion, runny nose or sore throat. SKIN: No rash or itching, lesions, wounds. CARDIOVASCULAR: + Pleuritic chest discomfort. No palpitations, edema, orthopnea, syncopal events. RESPIRATORY: + Mild shortness of breath, cough without marked sputum. No wheezing, hemoptysis. GASTROINTESTINAL: + anorexia. No nausea, vomiting or diarrhea, abdominal pain, melena, BRBPR. GENITOURINARY: No dysuria, frequency, urgency or retention. NEUROLOGICAL: + Transient confusion especially while febrile. No headache, dizziness, syncope, paralysis, ataxia, numbness or tingling in the extremities, focal weakness, change in bowel or bladder control, seizure. MUSCULOSKELETAL: + muscle, back pain, joint pain or stiffness. HEMATOLOGIC:+ anemia, bleeding or bruising. LYMPHATICS: No enlarged nodes. No history of splenectomy. PSYCHIATRIC: + history of depression or anxiety. ENDOCRINOLOGIC: + reports of sweating, cold or heat intolerance. No polyuria or polydipsia. ALLERGIES: No history of asthma, hives, eczema or rhinitis. Vital Signs Vital Signs Vital Signs: 08/30/22 16:00 08/30/22 16:20 08/30/22 16:22 Temperature 100.7 F H 101.3 F H Temperature Source Temporal Oral Pulse Rate 132 H 122 H Respiratory Rate 18 30 H Respiratory Effort Normal Non-Labored Respiratory Pattern Normal Blood Pressure 115/62 126/69 H Blood Pressure Mean 79 88 Pulse Ox 94 92 Oxygen Delivery Method Room Air Room Air Oxygen Flow Rate (L/min) 08/30/22 16:33 08/30/22 19:02 08/30/22 19:04 Temperature 99.8 F H Temperature Source Oral Pulse Rate 119 H Respiratory Rate 16 Respiratory Effort Respiratory Pattern Blood Pressure 90/62 Blood Pressure Mean 71 Pulse Ox 93 Oxygen Delivery Method Room Air Room Air Oxygen Flow Rate (L/min) 94 08/30/22 19:05 Temperature 99.8 F H Temperature Source Oral Pulse Rate 120 H Respiratory Rate 18 Respiratory Effort Respiratory Pattern Blood Pressure 90/62 Blood Pressure Mean 71 Pulse Ox 98 Oxygen Delivery Method Room Air Oxygen Flow Rate (L/min) Weight Weight: 173 lb 11.588 oz Body Mass Index (BMI) 28.9 Physical Exam Narrative Physical Examination: General: Awake, alert, oriented x4 currently, notably improved, patient had reportedly been confused upon initial ED presentation per ED physician and also at home per especially while febrile, currently remain cooperative, seated upright in bed in no apparent distress, flushed and ill-appearing but states he feels improved since his initial arrival. Skin: Flushed color, normal turgor, no icterus, no cyanosis. HEENT: AT/NC, EOMI, PERRLA, MMM, no carotid bruits or JVD noted. Lungs: Notably diminished, greater bases, mildly coarse with mildly increased respiratory rate but no distress, no rales, ronchi or wheezing. Heart: Mildly tachycardic with regular rhythm; no gallop, rub audible, + SM. Abdomen: Soft, overweight, NTTP, ND, mildly hyperactive BS, no HSM. Extremities: No cyanosis, clubbing, or edema. Neurological: Patient awake, alert, oriented as noted, cognitive function intact; pupils equally reactive to light and accommodation, cranial nerves II-XII grossly normal, moving all 4 extremities, no focal deficits, strength improving but remains moderately to severely globally decreased secondary to acute presentation. Psychiatric: Affect appears flat, fatigued, ill-appearing, no acute evidence of depressive or anxiety feelings but does have underlying history. Results Lab / Micro Data Result Diagrams: 08/30/22 16:57 08/30/22 16:57 Labs: Laboratory Results - last 24 hr 08/30/22 16:57: WBC 14.8 H, RBC 4.50 L, Hgb 13.3, Hct 40.9, MCV 90.9, MCH 29.6, MCHC 32.5, RDW Std Deviation 49.7 H, RDW Coeff of Yvonne 14.9 H, Plt Count 189, MPV 9.4, Immature Gran % (Auto) 1.100 H, Neut % (Auto) 90.1 H, Lymph % (Auto) 1.0 L, Mora % (Auto) 7.2, Eos % (Auto) 0.1, Baso % (Auto) 0.5, Absolute Neuts (auto) 13.3 H, Absolute Lymphs (auto) 0.15 L, Nucleated RBC % 0, Differential Comment SEE COMMENT, Diff Path Review May foll, Platelet Estimate ADEQUATE, RBC Morphology N CHROM, Anisocytosis RARE, Macrocytosis RARE 08/30/22 16:57: PT 13.8, INR 1.1, APTT 35.3 08/30/22 16:57: Sodium 133 L, Potassium 3.3 L, Chloride 98, Carbon Dioxide 26.0, Anion Gap 9, BUN 12, Creatinine 0.79, Estim Creat Clear Calc 82.17, Est GFR (MDRD) Af Amer 127, Est GFR (MDRD) Non-Af 105, BUN/Creatinine Ratio 15.2, Glucose 185 H, Calcium 8.9, Total Bilirubin 0.90, AST 20, ALT 30, Alkaline Phosphatase 83, Troponin I High Sens 54, Total Protein 6.4, Albumin 3.2, Globulin 3.2, Albumin/Globulin Ratio 1.0 08/30/22 16:57: Lactic Acid 1.2 08/30/22 18:45: Urine Color Yellow, Urine Clarity Clear, Urine pH 6.0, Ur Specific [place] 1.010, Urine Protein 30 H, Urine Glucose (UA) Normal, Urine Ketones 5 H, Urine Occult Blood 10 H, Urine Nitrite Negative, Urine Bilirubin Negative, Urine Urobilinogen Normal, Ur Leukocyte Esterase 25 H, Urine RBC 0 SEEN, Urine WBC 0 SEEN, Ur Squamous Epith Cells 0 SEEN, Urine Bacteria 0 SEEN, Urine Mucus 0 SEEN Micro: Microbiology 08/30/22 18:30 Nasal Secretion SARS-CoV-2 & FLU Antigen (Rapid) - Final Radiology Impression Chest X-Ray 08/30/22 17:10 IMPRESSION: Degenerative changes, as described above. No demonstrated acute cardiopulmonary process. No major interval change. Electronically Signed: Elliott Sal DO at 17:27 EDT Reading Location ID and State: [facility] / [place] Tel [phone], Service support , Chest CT 08/30/22 18:56 IMPRESSION: 1. Left lower lobe retrocardiac pneumonia . 2. Atherosclerotic changes of the thoracic aorta and coronary arteries. Electronically Signed: Elliott Sal DO at 19:50 EDT Reading Location ID and State: [facility] / [place] Tel [phone], Service support , Assessment & Plan Assessment/Plan (1) Sepsis: PLAN: Plan The patient is a 62 y/o M w/ PMHx: Nonobstructive CAD, Severe Aortic Stenosis, Diabetes mellitus type II, Anxiety and Depression, Hypothyroidism, GERD, HLD, Tobacco use, Non-Hodgkin lymphoma following with Dr. Alvarez with ongoing chemotherapy of uncertain specific kind who presents to the [facility] ED on 08/30/22 with increased fatigue, malaise, fever onset today, increased lethargy, sleeping more, decreased oral intake and slight cough without marked sputum production or notable dyspnea prompting eventual ED evaluation. #1. Acute Sepsis (febrile, tachycardic, tachypneic, confirmed infection with SBP < 90 as noted) secondary to Acute Transient Encephalopathy, increased lethargy secondary to Acute Left lower lobe retrocardiac pneumonia: Will admit to PCU to be cautious as SBP 87 currently in the ED, being administered additional 1L NS per discussion with ED physician with close BP monitoring, currently on room air but if necessary maintain on oxygen with wean as tolerated to room air, continue ATC budesonide, PRN albuterol, maintained on IV Rocephin and Azithromycin but low threshold to broaden if necessary given history but given patient BP certainly could be a component of morphine that was ministered in the ED, HOB, IS parameters w/ pending sputum cultures, full respiratory viral panel, COVID PCR to be cautious and urine antigens. Bld cx x 2 obtained in the ED. #2. Hypokalemia: Admission K+ 3.3, magnesium level requested, supplementation given, repeat level in AM. #3. Hyponatremia, suspect hypovolemic: Admission sodium 133, suspected hypovolemic given acute presentation number 1 with decreased intake, will continue judicious hydration, repeat CMP in AM. #4. 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 Alvarez with ongoing chemotherapy of uncertain specific kind, will obtain magnesium and phosphorus levels with repletion as needed, low threshold to involve their service if necessary will broaden antibiotic therapy given this history. #5. 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 #6. Nonobstructive CAD: As noted patient with recent cardiac catheterization secondary to evaluation for TAVR as noted, will continue baby aspirin, statin, given blood pressure patient is not on beta-semaj nor RHODA inhibitor/ARB. #7. Diabetes mellitus type II: Hold oral home regimen, ADA diet, accu checks w/ ISS. #8. Anxiety and depression: We will continue patient on venlafaxine regimen. #9. Hypothyroidism: We will continue patient home levothyroxine regimen. #10. GERD: We will continue patient on PPI. #11. Hyperlipidemia: We will continue patient on statin therapy. #12. Tobacco Abuse: Encouraged cessation, patient former chew tobacco now transition only to cigars and cigarettes, quit cigars daily 07/2012 however still having occasional cigarettes, inpatient consultation per RT, NR if desired. #13. DVT prophylaxis: Lovenox. #13. CODE status: Patient MANOLO is his and living will is currently in place. Discussed CODE status at length including difference between FULL code, DNR-CCA and DNR-CC status. Following discussions about the differences in these status, requested Full Code status. Admission Evaluation Time spent evaluating chart, patient history, patient evaluation, care planning and discussion with specialists: 75 minutes. Charges/Coding Visit Charges Inpatient E&M: 46931 Init Hosp L3
[2022-08-30 20:56] LABS: Magnesium 1.3 mg/dL (1.6-2.6); Phosphorus 1.8 mg/dL (2.5-4.9)
[2022-08-30] MEDS: Budesonide Respules 0.5 MG/2 ML AMPUL.NEB. INHALATION (22:21)
[2022-08-30] MEDS: Potassium Chloride Oral Tablet 20 MEQ 40 MEQ PO (22:39)
[2022-08-30] MEDS: 0.9% Normal Saline 1,000 ML 125 ML IV (22:40)
[2022-08-30] MEDS: Atorvastatin Calcium 40 MG Tablet PO (22:42)
[2022-08-30] MEDS: MELATONIN 3 MG TABLET PO (22:51)
[2022-08-30 23:06] LABS: Bedside Glucose 179 mg/dL (74-106)
[2022-08-30] MEDS: guaiFENesin 10 ML UDC (200MG/10ML) 20 ML PO (23:11)
[2022-08-30] MEDS: Insulin Lispro 100 UNIT/ML INSULN.PEN SC (23:14)
[2022-08-31] VITALS (43 sets, daily range): BP systolic 68–114; BP diastolic 40–72; PULSE 101–135; RESP 16–30; TEMP 36.6–38.4; O2SAT 92–98; BMI 27.4
[2022-08-31] MEDS: 0.9% Normal Saline 1,000 ML 999 ML IV (00:55)
[2022-08-31] MEDS: Acetaminophen 325 MG Tablet 650 MG PO (01:50)
--- NOTE | 2022-08-31 02:17 | PCM.HOSP.N ---
Hospitalist Note Patient and unfortunately with persistent hypotension despite fluids, remains also mildly tachycardic but is currently febrile, given this presentation would find patient consistent with septic shock at this point and will transfer to the ICU with planned initiation of norepinephrine with drying room supervisor consultation.
--- NOTE | 2022-08-31 03:28 | NURSING ---
This nurse transferred this patient to ICU at patients beside.
[2022-08-31 03:41] LABS: Bedside Glucose 189 mg/dL (74-106)
[2022-08-31 03:53] LABS: Absolute Lymphocyte Count 0.12 X10^3/uL (0.83-4.51); Absolute Neutrophil Count 5.2 X10^3/uL (2.0-7.7); Basophil# 0.06 X10^3/uL; Hematocrit 37.5 % (40-54); Hemoglobin 12.1 g/dL (13.0-16.5); Lymphocyte # 0.12 X10^3/ul (0.83-4.51); Lymphocyte % 2.1 % (19-41); Mean Corp Hgb Conc 32.3 g/dL (32-36); Mean Corpuscular Hgb 29.7 pg (27.0-32.0); Mean Corpuscular Volume 92.1 fL (80-94); Mean Platelet Vol. 9.5 fl (6.2-12.0); Monocyte# 0.38 X10^3/uL; Monocyte% 6.6 % (0-10); NRBC Flagged by Analyzer 0 % (0-5); Neutrophil # 5.17 X10^3/uL (2.7-7.7); Neutrophil % 89.8 % (47-70); POSITIVE DIFFERENTIAL YES; POSITIVE MORPHOLOGY YES; Platelet Count 157 K/mm3 (150-450); RBC Distribution Width CV 15.2 % (11.6-14.6); RBC Distribution Width SD 51.2 fl (35.1-43.9); Red Blood Count 4.07 M/mm3 (4.6-6.2); White Blood Count 5.8 K/mm3 (4.4-11.0)
--- NOTE | 2022-08-31 03:57 | NURSING ---
Patient clothing items given to the and she gave them to her daughter.
[2022-08-31 04:00] LABS: Differential Indicated SCAN CRITERIA MET
[2022-08-31 04:17] LABS: ALB/GLOB Ratio 0.9 RATIO (0.9-2.4); AST(SGOT) 21 U/L (15-37); Alanine Aminotransfer ALT/SGPT 31 U/L (16-61); Albumin, Serum 2.3 g/dL (3.2-5.0); Alkaline Phosphatase 59 U/L (45-117); Anion Gap 8 (5-15); BUN 21 mg/dL (7-18); BUN/Creat Ratio 22.8 RATIO (10-20); Calcium,Total 7.3 mg/dL (8.5-10.1); Chloride 107 mmol/L (98-107); Creatinine, Serum 0.92 mg/dL (0.70-1.30); EST Glomerular Filtration Rate 88 mL/min (>60); Est Glom Filt Rate - Afr Amer 106 mL/min (>60); Estimated Creatinine Clearance 70.56 ml/min; Globulin 2.6 g/dL (2.2-4.2); Glucose 207 mg/dL (74-106); Potassium 3.7 mmol/L (3.5-5.1); Protein, Total 4.9 g/dL (6.4-8.2); Sodium Level 137 mmol/L (136-145)
[2022-08-31 04:22] LABS: Anisocytosis 1+
[2022-08-31 04:38] LABS: Procalcitonin 6.77 ng/mL (0.00-0.09)
[2022-08-31] MEDS: Magnesium Sulfate 4gm/100mL 4 GM/100 ML IV.SOLN. IV (04:39)
[2022-08-31] MEDS: 0.9% Normal Saline 1,000 ML 125 ML IV (05:28)
--- NOTE | 2022-08-31 05:57 | PCM.RX.CS ---
Consult Pharmacy has been consulted to manage selected antiobiotic: Vancomycin Type of Consult: New start Suspected Infection: Sepsis Labs: Sodium 137 mmol/L (136-145) 08/31/22 03:35 Potassium 3.7 mmol/L (3.5-5.1) 08/31/22 03:35 Chloride 107 mmol/L (98-107) 08/31/22 03:35 Carbon Dioxide 22.0 mmol/L (21.0-32.0) 08/31/22 03:35 Anion Gap 8 (5-15) 08/31/22 03:35 BUN 21 mg/dL (7-18) H 08/31/22 03:35 Creatinine 0.92 mg/dL (0.70-1.30) 08/31/22 03:35 Est GFR (MDRD) Af Amer 106 mL/min (>60) 08/31/22 03:35 Est GFR (MDRD) Non-Af 88 mL/min (>60) 08/31/22 03:35 BUN/Creatinine Ratio 22.8 RATIO (10-20) H 08/31/22 03:35 Glucose 207 mg/dL (74-106) H 08/31/22 03:35 Microbiology: Microbiology 08/30/22 22:18 Mucosa - Nasopharyngeal Respiratory Panel (PCR) - Final 08/30/22 18:45 Urine, Clean Catch Legionella Antigen - Final 08/30/22 18:45 Urine, Clean Catch Streptococcus pneumoniae Antigen (M - Final 08/30/22 18:30 Nasal Secretion SARS-CoV-2 & FLU Antigen (Rapid) - Final Goal Trough: 15-20 mcg/mL Pharmacy Plan for Drug Dosing: Pharmacy Service will continue to monitor and adjust dosing as required. Medications Vancomycin HCl (Vancomycin) 1,000 mg in 200 mls @ 200 mls/hr IV Q12H THAD Vancomycin HCl 1,250 mg/ (Sodium Chloride) 275 mls @ 167 mls/hr IV X1 ONE Stop: 08/31/22 06:38 Last Admin: 08/31/22 05:26 Dose: 167 mls/hr Follow-Up Labs: Trough Vancomycin Labs to be done on [date and time ordered]: 09/01 @ 1700
[2022-08-31] MEDS: Levothyroxine 50 MCG Tablet PO (06:28)
--- NOTE | 2022-08-31 06:39 | EX.PCM.CONCC ---
Assessment & Plan Assessment/Plan (1) Sepsis: PLAN: Plan RECOMMENDATIONS: 1. Wean Levophed to maintain a mean arterial pressure at or above 65 mmHg. 2. Continue broad-spectrum antimicrobials, pending infectious work-up. 3. Continue supplemental IV fluids as tolerated. 4. Continue appropriate DVT and GI prophylaxis. 5. Encourage incentive spirometer use and mobilize patient as tolerated. IMPRESSIONS: 1. Septic shock The patient presented with sepsis due to probable left lower lobe pneumonia with acute sepsis related organ dysfunction as evidenced by persistent hypotension, requiring initiation of vasopressor support. The patient has been initiated on appropriate broad-spectrum antimicrobials. Plan to continue Levophed to maintain a mean arterial pressure at or above 65 mmHg. If the patient's cough becomes productive, will send sputum for culture. 2. History of non-Hodgkin's lymphoma/history of aortic valve stenosis/coronary artery disease/hypothyroidism Complicates care, management, recovery and prognosis. Continue home medications as indicated. TIME: 33 minutes of critical care time, independent of procedures, was spent addressing the patient's septic shock, left lower lobe pneumonia, review of all data and collaboration with the care team. HPI Consult Data Date of Consult: 09/01/22 HPI Narrative Reason for Consultation: Sepsis HPI Narrative: The patient is a 62-year-old male, with a history as outlined below, who presented to the emergency department on August 30 with increasing lethargy, generalized malaise and fever. The patient has a history of severe aortic stenosis, hypothyroidism, tobacco dependency and non-Hodgkin's lymphoma, for which he is currently being followed by Dr. Alvarez. He did report that he is currently receiving chemotherapy and received his last dose sometime in July. The patient does report the presence of a cough but has been unable to produce any sputum. On presentation to the emergency department, the patient was noted to be febrile, tachycardic and tachypneic. Initial laboratory evaluation revealed an elevated white blood cell count to 15,000. Coagulation profile was unrevealing. Chemistry profile was notable for a phosphorus of 1.8 and magnesium of 1.3. Lactate was within normal limits. Urine analysis was largely unrevealing. CT chest was obtained and demonstrated a left lower lobe infiltrate. The patient initially received 2 L of supplemental IV fluids and was initiated on antimicrobials. The patient was initially admitted to the progressive care unit. However, overnight, the patient developed fluid refractory hypotension and had to be transferred to the medical intensive care unit for the initiation of vasopressor support. His antimicrobials were subsequently broadened to include cefepime, Levaquin and vancomycin. [facility] Medical History Adjustment disorder Anxiety and depression CAD (coronary artery disease) Hyperlipidemia Hypothyroidism Nicotine dependence Non-Hodgkin lymphoma Nonrheumatic aortic (valve) stenosis Tobacco use Tubular adenoma of colon Type 2 diabetes mellitus without complication Urolithiasis Home Medications atorvastatin 40 mg tablet 40 mg PO QHS Check with primary doctor 09/30/19 [History Last Taken Unknown] omeprazole 40 mg capsule,delayed release 40 mg PO DAILY PRN gerd 09/30/19 [History Last Taken Unknown] levothyroxine 50 mcg tablet 50 mcg PO DAILY Check with primary doctor 11/11/21 [History Last Taken Unknown] venlafaxine 75 mg capsule,extended release 24 hr 75 mg PO DAILY Check with primary doctor 11/11/21 [History Last Taken Unknown] Allergy/AdvReac Type Severity Reaction Status Date / Time meclizine AdvReac Other Verified 08/30/22 15:59 Penicillins AdvReac Rash Verified 08/30/22 15:59 Family History Father Myocardial infarction Heart disease Hypertension Mother Heart disease Cancer Brother Hypertension Thyroid disorder Sister Breast cancer Surgical History History of extraction of renal calculus History of lymph node biopsy S/P cholecystectomy S/P vascular surgery Social History household members: spouse Smoking Status: Current every day smoker tobacco type: cigarettes how long ago did patient quit smoking: Former chew tobacco, former cigars, now only occasional cigarette. alcohol intake: current alcohol intake frequency: a few times a week Alcohol type: beer substance use type: does not use caffeine: Yes Type: coffee Number of servings: 1 ROS ROS Narrative 10 systems were reviewed with pertinent positives as noted in the HPI above. Physical Exam Const alert and no apparent distress General Appearance: cooperative HEENT normocephalic and head/scalp atraumatic Eyes PERRL, EOMs intact bilaterally and conjunctivae normal Neck supple General: trachea midline Chest inspection of chest normal Chest Narrative: Stable appearing chest wall port. Resp normal respiratory effort Auscultation: diminished lung sounds; Negative for rales, rhonchi or wheezes Cardio S1 normal heart sound and S2 normal heart sound Rate: tachycardic Heart Sounds: murmur systolic GI normal to inspection, nondistended, normoactive bowel sounds Extremity no clubbing, cyanosis or edema Skin no rashes or lesions noted Neuro CN's II-XII intact bilaterally, moves all extremities and no focal motor deficits Psych Mood & Affect: flat affect Lab / Micro Data Result Diagrams: 09/01/22 04:15 09/01/22 04:15 Labs: Laboratory Results - last 24 hr 08/30/22 16:57: WBC 14.8 H, RBC 4.50 L, Hgb 13.3, Hct 40.9, MCV 90.9, MCH 29.6, MCHC 32.5, RDW Std Deviation 49.7 H, RDW Coeff of Yvonne 14.9 H, Plt Count 189, MPV 9.4, Immature Gran % (Auto) 1.100 H, Neut % (Auto) 90.1 H, Lymph % (Auto) 1.0 L, [place] % (Auto) 7.2, Eos % (Auto) 0.1, Baso % (Auto) 0.5, Absolute Neuts (auto) 13.3 H, Absolute Lymphs (auto) 0.15 L, Nucleated RBC % 0, Differential Comment SEE COMMENT, Diff Path Review May foll, Platelet Estimate ADEQUATE, RBC Morphology N CHROM, Anisocytosis RARE, Macrocytosis RARE 08/30/22 16:57: PT 13.8, INR 1.1, APTT 35.3 08/30/22 16:57: Sodium 133 L, Potassium 3.3 L, Chloride 98, Carbon Dioxide 26.0, Anion Gap 9, BUN 12, Creatinine 0.79, Estim Creat Clear Calc 82.17, Est GFR (MDRD) Af Amer 127, Est GFR (MDRD) Non-Af 105, BUN/Creatinine Ratio 15.2, Glucose 185 H, Calcium 8.9, Total Bilirubin 0.90, AST 20, ALT 30, Alkaline Phosphatase 83, Troponin I High Sens 54, Total Protein 6.4, Albumin 3.2, Globulin 3.2, Albumin/Globulin Ratio 1.0 08/30/22 16:57: Lactic Acid 1.2 08/30/22 16:57: Phosphorus 1.8 L, Magnesium 1.3 L 08/30/22 18:45: Urine Color Yellow, Urine Clarity Clear, Urine pH 6.0, Ur Specific [place] 1.010, Urine Protein 30 H, Urine Glucose (UA) Normal, Urine Ketones 5 H, Urine Occult Blood 10 H, Urine Nitrite Negative, Urine Bilirubin Negative, Urine Urobilinogen Normal, Ur Leukocyte Esterase 25 H, Urine RBC 0 SEEN, Urine WBC 0 SEEN, Ur Squamous Epith Cells 0 SEEN, Urine Bacteria 0 SEEN, Urine Mucus 0 SEEN 08/30/22 22:18: COVID-19 (GABY) Not Detected 08/30/22 22:44: POC Glucose 179 H 08/31/22 03:01: POC Glucose 189 H 08/31/22 03:35: WBC 5.8, RBC 4.07 L, Hgb 12.1 L, Hct 37.5 L, MCV 92.1, MCH 29.7, MCHC 32.3, RDW Std Deviation 51.2 H, RDW Coeff of Yvonne 15.2 H, Plt Count 157, MPV 9.5, Immature Gran % (Auto) 0.500, Neut % (Auto) 89.8 H, Lymph % (Auto) 2.1 L, [place] % (Auto) 6.6, Eos % (Auto) 0.0, Baso % (Auto) 1.0, Absolute Neuts (auto) 5.2, Absolute Lymphs (auto) 0.12 L, Nucleated RBC % 0, Anisocytosis 1+ 08/31/22 03:35: Sodium 137, Potassium 3.7, Chloride 107, Carbon Dioxide 22.0, Anion Gap 8, BUN 21 H, Creatinine 0.92, Estim Creat Clear Calc 70.56, Est GFR (MDRD) Af Amer 106, Est GFR (MDRD) Non-Af 88, BUN/Creatinine Ratio 22.8 H, Glucose 207 H, Calcium 7.3 L, Total Bilirubin 1.00, AST 21, ALT 31, Alkaline Phosphatase 59, Total Protein 4.9 L, Albumin 2.3 L, Globulin 2.6, Albumin/Globulin Ratio 0.9 08/31/22 03:35: Procalcitonin 6.77 H Micro: Microbiology 05/17/23 22:18 Mucosa - Nasopharyngeal Respiratory Panel (PCR) - Final 08/30/22 18:45 Urine, Clean Catch Legionella Antigen - Final 08/30/22 18:45 Urine, Clean Catch Streptococcus pneumoniae Antigen (M - Final 08/30/22 18:30 Nasal Secretion SARS-CoV-2 & FLU Antigen (Rapid) - Final Radiology Impression Chest X-Ray 08/30/22 17:10 IMPRESSION: Degenerative changes, as described above. No demonstrated acute cardiopulmonary process. No major interval change. Electronically Signed: Elliott Sal DO at 17:27 EDT Reading Location ID and State: [employer] / [employer] Tel [phone], Service support , Chest CT 08/30/22 18:56 IMPRESSION: 1. Left lower lobe retrocardiac pneumonia . 2. Atherosclerotic changes of the thoracic aorta and coronary arteries. Electronically Signed: Elliott Sal DO at 19:50 EDT Reading Location ID and State: [employer] / [place] Tel [phone], Service support , Charges/Coding Procedures Hospitalists Procedures: [id number] Critial Care 1st Hr
[2022-08-31] MEDS: Budesonide Respules 0.5 MG/2 ML AMPUL.NEB. INHALATION ×2 (07:05→18:57)
[2022-08-31] MEDS: Insulin Lispro 100 UNIT/ML INSULN.PEN SC ×4 (08:05→20:48)
[2022-08-31 08:25] LABS: Bedside Glucose 233 mg/dL (74-106)
--- NOTE | 2022-08-31 08:44 | PN.HOSP_ITS ---
Subjective Subjective Initially admitted for sepsis due to pneumonia however he failed to maintain blood pressures after an appropriate fluid resuscitation so was transferred to ICU for blood pressure support with Levophed transitioning to septic shock. Objective Data Objective Data Vital Signs: Vital Signs Temp Pulse Resp BP Pulse Ox O2 Del Method O2 Flow Rate 97.9 F 112 H 25 H 99/66 97 Nasal Cannula 2 08/31/22 07:00 08/31/22 07:07 08/31/22 07:07 08/31/22 07:00 08/31/22 07:07 08/31/22 07:07 08/31/22 07:07 Oxygen Flow Rate (L/min) 2 Oxygen Delivery Method Nasal Cannula Weight: 165 lb 2.02 oz Body Mass Index (BMI) 27.4 Intake & Output: Intake and Output for Last 24 Hours 08/30/22 08/31/22 09/01/22 03:59 03:59 03:59 Intake Total 3855.00 / 3857.35 691.02 / 691.02 Balance 3855.00 / 3857.35 691.02 / 691.02 Lab / Micro Data Result Diagrams: 08/31/22 03:35 08/31/22 03:35 Labs: Laboratory Results - last 24 hr 08/30/22 16:57: WBC 14.8 H, RBC 4.50 L, Hgb 13.3, Hct 40.9, MCV 90.9, MCH 29.6, MCHC 32.5, RDW Std Deviation 49.7 H, RDW Coeff of Yvonne 14.9 H, Plt Count 189, MPV 9.4, Immature Gran % (Auto) 1.100 H, Neut % (Auto) 90.1 H, Lymph % (Auto) 1.0 L, [place] % (Auto) 7.2, Eos % (Auto) 0.1, Baso % (Auto) 0.5, Absolute Neuts (auto) 13.3 H, Absolute Lymphs (auto) 0.15 L, Nucleated RBC % 0, Differential Comment SEE COMMENT, Diff Path Review May foll, Platelet Estimate ADEQUATE, RBC Morphology N CHROM, Anisocytosis RARE, Macrocytosis RARE 08/30/22 16:57: PT 13.8, INR 1.1, APTT 35.3 08/30/22 16:57: Sodium 133 L, Potassium 3.3 L, Chloride 98, Carbon Dioxide 26.0, Anion Gap 9, BUN 12, Creatinine 0.79, Estim Creat Clear Calc 82.17, Est GFR (MDRD) Af Amer 127, Est GFR (MDRD) Non-Af 105, BUN/Creatinine Ratio 15.2, Glucose 185 H, Calcium 8.9, Total Bilirubin 0.90, AST 20, ALT 30, Alkaline Phosphatase 83, Troponin I High Sens 54, Total Protein 6.4, Albumin 3.2, Globulin 3.2, Albumin/Globulin Ratio 1.0 08/30/22 16:57: Lactic Acid 1.2 08/30/22 16:57: Phosphorus 1.8 L, Magnesium 1.3 L 08/30/22 18:45: Urine Color Yellow, Urine Clarity Clear, Urine pH 6.0, Ur Specific [place] 1.010, Urine Protein 30 H, Urine Glucose (UA) Normal, Urine Ketones 5 H, Urine Occult Blood 10 H, Urine Nitrite Negative, Urine Bilirubin Negative, Urine Urobilinogen Normal, Ur Leukocyte Esterase 25 H, Urine RBC 0 SEEN, Urine WBC 0 SEEN, Ur Squamous Epith Cells 0 SEEN, Urine Bacteria 0 SEEN, Urine Mucus 0 SEEN 08/30/22 22:18: COVID-19 (GABY) Not Detected 08/30/22 22:44: POC Glucose 179 H 08/31/22 03:01: POC Glucose 189 H 08/31/22 03:35: WBC 5.8, RBC 4.07 L, Hgb 12.1 L, Hct 37.5 L, MCV 92.1, MCH 29.7, MCHC 32.3, RDW Std Deviation 51.2 H, RDW Coeff of Yvonne 15.2 H, Plt Count 157, MPV 9.5, Immature Gran % (Auto) 0.500, Neut % (Auto) 89.8 H, Lymph % (Auto) 2.1 L, [place] % (Auto) 6.6, Eos % (Auto) 0.0, Baso % (Auto) 1.0, Absolute Neuts (auto) 5.2, Absolute Lymphs (auto) 0.12 L, Nucleated RBC % 0, Anisocytosis 1+ 08/31/22 03:35: Sodium 137, Potassium 3.7, Chloride 107, Carbon Dioxide 22.0, Anion Gap 8, BUN 21 H, Creatinine 0.92, Estim Creat Clear Calc 70.56, Est GFR (MDRD) Af Amer 106, Est GFR (MDRD) Non-Af 88, BUN/Creatinine Ratio 22.8 H, Glucose 207 H, Calcium 7.3 L, Total Bilirubin 1.00, AST 21, ALT 31, Alkaline Phosphatase 59, Total Protein 4.9 L, Albumin 2.3 L, Globulin 2.6, Albumin/Globulin Ratio 0.9 08/31/22 03:35: Procalcitonin 6.77 H 08/31/22 08:01: POC Glucose 233 H Micro: Microbiology 08/31/22 02:39 Stool C. difficile DNA Amplification - Final 08/30/22 22:18 Mucosa - Nasopharyngeal Respiratory Panel (PCR) - Final 08/30/22 18:45 Urine, Clean Catch Legionella Antigen - Final 08/30/22 18:45 Urine, Clean Catch Streptococcus pneumoniae Antigen (M - Final 08/30/22 18:30 Nasal Secretion SARS-CoV-2 & FLU Antigen (Rapid) - Final Radiography Diagnostic Testing: Radiology Impression Chest X-Ray 08/30/22 17:10 IMPRESSION: Degenerative changes, as described above. No demonstrated acute cardiopulmonary process. No major interval change. Electronically Signed: Elliott Green BayDO kj at 17:27 EDT Reading Location ID and State: [address] [place] [address] Tel [phone], Service support , Chest CT 08/30/22 18:56 IMPRESSION: 1. Left lower lobe retrocardiac pneumonia . 2. Atherosclerotic changes of the thoracic aorta and coronary arteries. Electronically Signed: Elliott Sal DO at 19:50 EDT Reading Location ID and State: [address] [place] [address] Tel [phone], Service support , Physical Exam Narrative General: Alert, Cooperative, No apparent distress HEENT: Atraumatic, PERRLA, EOMI, Normocephalic Oral: Dry mucosa Neck: Supple, No JVD Lungs: Diminished, Normal air movement, No rhonchi, No wheeze, No rales Cardiovascular: Tachycardic, Regular Rhythm, Normal S1, Normal S2, murmurs Abdomen: Soft, Non Tender, Non-Distended, No Hepato-splenomegaly Extremities: No edema, Capillary Refill Less than 3 Seconds Skin: No rashes, No breakdown Musculoskeletal: No Tenderness to Palpation of Joints or Extremities Neurological: Motor Exam 5/5 strength throughout, Sensory exam intact to light touch and pain Psych/Mental Status: Flat affect Assessment & Plan Assessment/Plan (1) Sepsis: PLAN: Plan 1. Acute septic shock secondary to left lower lobe pneumonia with metabolic encephalopathy ? Continue with Levophed ? Appreciate naval marine engineer assistance ? Continue with broad-spectrum antibiotics, sputum cultures are pending ? Continue with IV fluids 2. Nonobstructive CAD/severe aortic valve stenosis/HLD ? He is following up as an outpatient with cardiology for TAVR given his aortic stenosis ? Continue with Lipitor 3. Non-Hodgkin lymphoma ? 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 Alvarez with ongoing chemotherapy of uncertain specifi c kind 4. Hypothyroidism ? Stable ? Continue with Synthroid 5. GERD ? Stable ? Continue with PPI DVT: Lovenox Charges/Coding Visit Charges Inpatient E&M: 36410 Subs Hosp L2
[2022-08-31] MEDS: Pantoprazole Sodium 40 MG Tablet PO (09:38)
[2022-08-31] MEDS: Enoxaparin 40 MG/0.4 ML Syringe SC (09:38)
[2022-08-31] MEDS: Venlafaxine XR 75 MG Capsule PO (09:38)
[2022-08-31] MEDS: levoFLOXacin IV 750 MG/150 ML BAG 100 MG IV (09:39)
--- NOTE | 2022-08-31 10:12 | CASEMGMT ---
Social Work As per admitting back closer, pt has LW/POA, Betty is his POA. Pt is not able to get the documents to the hospital at this time. EULA Crawford
--- NOTE | 2022-08-31 10:40 | CASEMGMT ---
RN?CM?KNITTING TEACHER?CM?to room to meet with patient for initial transition planning/care coordination?assessment.?RN?CM?introduced self and role at [facility].? Pt voices understanding and consents to?assessment?at this time.? Pt resting in bed in no distress at this time. @ bedside.? Pt is A/O at this time and answers all questions appropriately.?? Care providers, pharmacy, and demographics verified/updated at this time. PCP: Dr Wright Specialists: Pt was going to [facility] but is switching to [facility]/cardiology in [place]. Dr Alvarez-oncology Preferred Pharmacy: [facility] Retail Insurance: [employer] Prescription Benefit:?Yes Living Will/HPOA:?Has both LW and HCPOA, who is his , Betty. Pt and aware these are not on file @ [facility]. LNOK: Betty Living Arrangements: Lives w/ and 3 children in 2-story home w/basement. 4 steps to enter home. Pt states does okay w/the stairs. Indep w/ADL's. does most home mgmt tasks. Transportation:?Hire drivers.? DME: ?Has a functioning glucometer w/supplies. Pt and voice no need for further DME at this time.? HHC/SNF: No hx of either. No needs identified. Pt wishes to return home and states has no concerns with going home at time of discharge.??CM?to follow for any discharge planning/needs.? Pt and voice no further concerns/needs at this time.? Advised them to ask for?CM?if any questions/concerns/needs arise.? They voice understanding. PLAN:??Home PT/OT evals pending. Car BSN?RN?CM
[2022-08-31 12:20] LABS: Bedside Glucose 279 mg/dL (74-106)
[2022-08-31 13:11] LABS: Pathologist Review Reviewed
[2022-08-31] MEDS: 0.9% Saline Lock 10 ML Syringe IV (14:16)
[2022-08-31] MEDS: Vancomycin IV 1,000 MG/200 ML BAG 200 MG IV (16:58)
[2022-08-31 18:01] LABS: Bedside Glucose 191 mg/dL (74-106)
[2022-08-31] MEDS: Atorvastatin Calcium 40 MG Tablet PO (20:48)
[2022-08-31 21:10] LABS: Bedside Glucose 180 mg/dL (74-106)
[2022-09-01] VITALS (16 sets, daily range): BP systolic 84–115; BP diastolic 54–72; PULSE 83–99; RESP 16–24; TEMP 36.1–37.1; O2SAT 93–98; BMI 29.5
[2022-09-01] MEDS: Vancomycin IV 1,000 MG/200 ML BAG 200 MG IV ×2 (04:22→16:56)
[2022-09-01 04:26] LABS: Hematocrit 32.7 % (40-54); Hemoglobin 10.3 g/dL (13.0-16.5); Mean Corp Hgb Conc 31.5 g/dL (32-36); Mean Corpuscular Hgb 29.3 pg (27.0-32.0); Mean Corpuscular Volume 93.2 fL (80-94); Mean Platelet Vol. 9.3 fl (6.2-12.0); POSITIVE COUNT YES; POSITIVE DIFFERENTIAL YES; POSITIVE MORPHOLOGY YES; Platelet Count 133 K/mm3 (150-450); RBC Distribution Width CV 15.3 % (11.6-14.6); RBC Distribution Width SD 51.9 fl (35.1-43.9); Red Blood Count 3.51 M/mm3 (4.6-6.2); White Blood Count 12.5 K/mm3 (4.4-11.0)
[2022-09-01 04:31] LABS: Differential Indicated MANUAL DIFF
[2022-09-01 04:42] LABS: Anion Gap 6 (5-15); BUN 13 mg/dL (7-18); BUN/Creat Ratio 19.9 RATIO (10-20); Calcium,Total 7.8 mg/dL (8.5-10.1); Chloride 113 mmol/L (98-107); Creatinine, Serum 0.65 mg/dL (0.70-1.30); EST Glomerular Filtration Rate 131 mL/min (>60); Est Glom Filt Rate - Afr Amer 158 mL/min (>60); Estimated Creatinine Clearance 99.87 ml/min; Glucose 134 mg/dL (74-106); Magnesium 1.9 mg/dL (1.6-2.6); Phosphorus 1.7 mg/dL (2.5-4.9); Potassium 3.8 mmol/L (3.5-5.1); Sodium Level 140 mmol/L (136-145)
[2022-09-01 04:53] LABS: Anisocytosis 1+; Platelet Estimate SLT DEC (ADEQ)
[2022-09-01 04:56] LABS: Absolute Lymphocyte Count 0.37 X10^3/uL (0.83-4.51); Absolute Neutrophil Count 11.6 X10^3/uL (2.0-7.7); Lymphocyte 3 % (19-41); Metamyelocyte 2 % (0-1); Monocyte 2 % (0-10); Neutrophil-Band 28 % (0-5); Neutrophil-Segmented 65 % (47-70); Total Cells Counted 100 (MANUAL DIFF)
[2022-09-01] MEDS: Levothyroxine 50 MCG Tablet PO (05:28)
[2022-09-01] MEDS: Acetaminophen 325 MG Tablet 650 MG PO (05:35)
--- NOTE | 2022-09-01 06:42 | PN.CC_ITS ---
Assessment & Plan Assessment/Plan (1) Sepsis: PLAN: Plan RECOMMENDATIONS: 1. Continue broad-spectrum antimicrobials to complete 7 days of therapy. 2. Continue appropriate DVT and GI prophylaxis. 3. Encourage incentive spirometer use and mobilize patient as tolerated. 4. We will sign off from a pulmonary/critical care perspective. Please call with any additional questions. IMPRESSIONS: 1. Septic shock Resolved. The patient presented with sepsis due to probable left lower lobe pneumonia with acute sepsis related organ dysfunction as evidenced by persistent hypotension, requiring initiation of vasopressor support. The patient was initiated on appropriate broad-spectrum antimicrobials. He has been successfully weaned from vasopressor support. Continue antimicrobials to complete 7 days of therapy. 2. History of non-Hodgkin's lymphoma/history of aortic valve stenosis/coronary artery disease/hypothyroidism Complicates care, management, recovery and prognosis. Continue home medications as indicated. This note was generated with [employer] dictation software. It may contain incorrect words, spelling, and punctuation that were not noted in checking the note before signing. Subjective Subjective The patient was seen and examined at the bedside this morning. Events from the last 24 hours have been reviewed. The patient is currently afebrile, hemodynamically stable and maintaining appropriate oxygen saturations on room air. The patient was successfully weaned off of Levophed yesterday afternoon. The patient is currently documented to be overall net +7.3 L for the hospitalization. Morning labs are stable. Objective Data Objective Data The patient's most recent lab work, culture data and imaging studies have all been personally reviewed. Infectious work-up has been unrevealing to date. Vital Signs: Vital Signs Temp Pulse Resp BP Pulse Ox O2 Del Method O2 Flow Rate 98.1 F 88 20 H 99/62 96 Room Air 2 09/01/22 04:00 09/01/22 06:00 09/01/22 06:00 09/01/22 06:00 09/01/22 06:00 09/01/22 06:00 08/31/22 10:00 Oxygen Flow Rate (L/min) 2 Oxygen Delivery Method Room Air Weight: 177 lb 0.499 oz Body Mass Index (BMI) 29.5 Intake & Output: Intake and Output for Last 24 Hours 08/30/22 08/31/22 09/01/22 23:59 23:59 23:59 Intake Total 2316.4 / 2316.4 4985.46 / 4985.46 334.25 / 334.25 Output Total 300 / 300 0 / 0 Balance 2316.4 / 2316.4 4685.46 / 4685.46 334.25 / 334.25 Medical Nutrition Assessment Dietitian: Malnutrition Criteria Met Start: 08/31/22 15:24 Freq: Status: Active Protocol: Document 08/31/22 15:24 (Rec: 08/31/22 15:24 [id number]) Nutrition Malnutrition Evidence of Malnutrition Exists Yes Malnutrition (severe): Chronic Evidenced By Suboptimal Energy Intake ( Severe),Weight Loss (Severe) Clinical Problem Chronic Disease or Condition Related Malnutrition Etiology chronic severe malnutrition related to inadequate energy intake w/ increased energy needs d/t nonhodgkins lymphoma Signs/Symptoms as evidenced by reported unintentional 24.9#/13% wt loss x 2-3 months; estimated energy intake meeting <75% of estimated energy needs > 3 months Status Active Problem Recommendation Dietitian Recommendations/Changes will liberalize diet to CHO controlled given evidence of malnutrition; 120mL Glucerna 4x/day w/ medpass for additional calories/protein if consumed Lab / Micro Data Attestation: I reviewed the patient's lab results. Result Diagrams: 09/02/22 03:16 09/02/22 03:16 Labs: Laboratory Results - last 24 hr 08/30/22 16:57: Diff Path Review Reviewed 08/31/22 08:01: POC Glucose 233 H 08/31/22 12:01: POC Glucose 279 H 08/31/22 16:57: POC Glucose 191 H 08/31/22 20:46: POC Glucose 180 H 09/01/22 04:15: WBC 12.5 H, RBC 3.51 L, Hgb 10.3 L, Hct 32.7 L, MCV 93.2, MCH 29.3, MCHC 31.5 L, RDW Std Deviation 51.9 H, RDW Coeff of Yvonne 15.3 H, Plt Count 133 L, MPV 9.3, Neut % (Auto) Not Reportable, Absolute Neuts (auto) 11.6 H, Absolute Lymphs (auto) 0.37 L, Total Counted 100, Neutrophils % (Manual) 65, Band Neutrophils % 28 H, Lymphocytes % (Manual) 3 L, Monocytes % (Manual) 2, Metamyelocytes % 2 H, Diff Path Review May foll, Platelet Estimate SLT DEC, Anisocytosis 1+ 09/01/22 04:15: Sodium 140, Potassium 3.8, Chloride 113 H, Carbon Dioxide 21.0, Anion Gap 6, BUN 13, Creatinine 0.65 L, Estim Creat Clear Calc 99.87, Est GFR (MDRD) Af Amer 158, Est GFR (MDRD) Non-Af 131, BUN/Creatinine Ratio 19.9, Gl ucose 134 H, Calcium 7.8 L, Phosphorus 1.7 L, Magnesium 1.9 Micro: Microbiology 08/30/22 18:45 Urine, Clean Catch Urine Culture - Preliminary Culture exhibits no growth. 08/31/22 02:39 Stool Enteric Bacteriology - Final 08/31/22 02:39 Stool C. difficile DNA Amplification - Final 08/30/22 22:18 Mucosa - Nasopharyngeal Respiratory Panel (PCR) - Final 08/30/22 18:45 Urine, Clean Catch Legionella Antigen - Final 08/30/22 18:45 Urine, Clean Catch Streptococcus pneumoniae Antigen (M - Final 08/30/22 18:30 Nasal Secretion SARS-CoV-2 & FLU Antigen (Rapid) - Final Physical Exam Const alert and no apparent distress General Appearance: cooperative HEENT normocephalic and head/scalp atraumatic Eyes PERRL, EOMs intact bilaterally and conjunctivae normal Neck supple General: trachea midline Chest inspection of chest normal Chest Narrative: Stable appearing chest wall port. Resp normal respiratory effort Auscultation: diminished lung sounds; Negative for rales, rhonchi or wheezes Cardio S1 normal heart sound and S2 normal heart sound Rate: tachycardic Heart Sounds: murmur systolic GI normal to inspection, nondistended, normoactive bowel sounds Extremity no clubbing, cyanosis or edema Skin no rashes or lesions noted Neuro CN's II-XII intact bilaterally, moves all extremities and no focal motor deficits Psych Mood & Affect: flat affect Charges/Coding Visit Charges Inpatient E&M: 55193 Subs Hosp L3
[2022-09-01] MEDS: Budesonide Respules 0.5 MG/2 ML AMPUL.NEB. INHALATION ×2 (07:23→19:22)
[2022-09-01] MEDS: Albuterol 2.5 MG/3 ML VIAL.NEB. INHALATION (07:23)
--- NOTE | 2022-09-01 08:17 | PN.HOSP_ITS ---
Subjective Subjective Much better, sitting at the edge of the bed not requiring any oxygen. He is off pressor support but his blood pressures are still low with systolics in the 80s to low 90s Objective Data Objective Data Vital Signs: Vital Signs Temp Pulse Resp BP Pulse Ox O2 Del Method O2 Flow Rate 98.1 F 88 16 84/59 L 96 Room Air 2 09/01/22 04:00 09/01/22 07:24 09/01/22 07:24 09/01/22 07:01 09/01/22 07:24 09/01/22 07:24 08/31/22 10:00 Oxygen Flow Rate (L/min) 2 Oxygen Delivery Method Room Air Weight: 177 lb 0.499 oz Body Mass Index (BMI) 29.5 Intake & Output: Intake and Output for Last 24 Hours 08/31/22 09/01/22 09/02/22 03:59 03:59 03:59 Intake Total 3855.00 / 3857.35 3446.86 / 3446.86 334.25 / 334.25 Output Total 300 / 300 0 / 0 Balance 3855.00 / 3857.35 3146.86 / 3146.86 334.25 / 334.25 Medical Nutrition Assessment Dietitian: Malnutrition Criteria Met Start: 08/31/22 15:24 Freq: Status: Active Protocol: Document 08/31/22 15:24 AG (Rec: 08/31/22 15:24 [id number]) Nutrition Malnutrition Evidence of Malnutrition Exists Yes Malnutrition (severe): Chronic Evidenced By Suboptimal Energy Intake ( Severe),Weight Loss (Severe) Clinical Problem Chronic Disease or Condition Related Malnutrition Etiology chronic severe malnutrition related to inadequate energy intake w/ increased energy needs d/t nonhodgkins lymphoma Signs/Symptoms as evidenced by reported unintentional 24.9#/13% wt loss x 2-3 months; estimated energy intake meeting <75% of estimated energy needs > 3 months Status Active Problem Recommendation Dietitian Recommendations/Changes will liberalize diet to CHO controlled given evidence of malnutrition; 120mL Glucerna 4x/day w/ medpass for additional calories/protein if consumed Lab / Micro Data Result Diagrams: 09/01/22 04:15 09/01/22 04:15 Labs: Laboratory Results - last 24 hr 08/30/22 16:57: Diff Path Review Reviewed 08/31/22 08:01: POC Glucose 233 H 08/31/22 12:01: POC Glucose 279 H 08/31/22 16:57: POC Glucose 191 H 08/31/22 20:46: POC Glucose 180 H 09/01/22 04:15: WBC 12.5 H, RBC 3.51 L, Hgb 10.3 L, Hct 32.7 L, MCV 93.2, MCH 29.3, MCHC 31.5 L, RDW Std Deviation 51.9 H, RDW Coeff of Yvonne 15.3 H, Plt Count 133 L, MPV 9.3, Neut % (Auto) Not Reportable, Absolute Neuts (auto) 11.6 H, Absolute Lymphs (auto) 0.37 L, Total Counted 100, Neutrophils % (Manual) 65, Band Neutrophils % 28 H, Lymphocytes % (Manual) 3 L, Monocytes % (Manual) 2, Metamyelocytes % 2 H, Diff Path Review August, Platelet Estimate SLT DEC, Anisocytosis 1+ 09/01/22 04:15: Sodium 140, Potassium 3.8, Chloride 113 H, Carbon Dioxide 21.0, Anion Gap 6, BUN 13, Creatinine 0.65 L, Estim Creat Clear Calc 99.87, Est GFR (MDRD) Af Amer 158, Est GFR (MDRD) Non-Af 131, BUN/Creatinine Ratio 19.9, Glucose 134 H, Calcium 7.8 L, Phosphorus 1.7 L, Magnesium 1.9 Micro: Microbiology 08/30/22 18:45 Urine, Clean Catch Urine Culture - Preliminary Culture exhibits no growth. 08/31/22 02:39 Stool Enteric Bacteriology - Final 08/31/22 02:39 Stool C. difficile DNA Amplification - Final 08/30/22 22:18 Mucosa - Nasopharyngeal Respiratory Panel (PCR) - Final 08/30/22 18:45 Urine, Clean Catch Legionella Antigen - Final 08/30/22 18:45 Urine, Clean Catch Streptococcus pneumoniae Antigen (M - Final 08/30/22 18:30 Nasal Secretion SARS-CoV-2 & FLU Antigen (Rapid) - Final Physical Exam Narrative General: Alert, oriented x3, Cooperative, No apparent distress HEENT: Atraumatic, PERRLA, EOMI, Normocephalic Oral: Moist mucosa Neck: Supple, No JVD Lungs: Diminished, Normal air movement, No rhonchi, No wheeze, No rales Cardiovascular: Tachycardic, Regular Rhythm, Normal S1, Normal S2, murmurs Abdomen: Soft, Non Tender, Non-Distended, No Hepato-splenomegaly Extremities: No edema, Capillary Refill Less than 3 Seconds Skin: No rashes, No breakdown Musculoskeletal: No Tenderness to Palpation of Joints or Extremities Neurological: Motor Exam 5/5 strength throughout, Sensory exam intact to light touch and pain Psych/Mental Status: Normal affect Assessment & Plan Assessment/Plan (1) Sepsis: PLAN: Plan 1. Acute septic shock secondary to left lower lobe pneumonia with metabolic encephalopathy ?Currently off Levophed can restart if necessary ? Appreciate assistant store leader assistance ? Continue with broad-spectrum antibiotics, sputum cultures are pending ? Continue with IV fluids 2. Nonobstructive CAD/severe aortic valve stenosis/HLD ? He is following up as an outpatient with cardiology for TAVR given his aortic stenosis ? Continue with Lipitor 3. Non-Hodgkin lymphoma ? 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 Alvarez with ongoing chemotherapy of uncertain specific kind 4. Hypothyroidism ? Stable ? Continue with Synthroid 5. GERD ? Stable ? Continue with PPI DVT: Lovenox Charges/Coding Visit Charges Inpatient E&M: 58708 Subs Hosp L2
[2022-09-01] MEDS: Pantoprazole Sodium 40 MG Tablet PO (10:22)
[2022-09-01] MEDS: Venlafaxine XR 75 MG Capsule PO (10:22)
[2022-09-01] MEDS: Enoxaparin 40 MG/0.4 ML Syringe SC (10:22)
[2022-09-01] MEDS: levoFLOXacin IV 750 MG/150 ML BAG 100 MG IV (10:22)
[2022-09-01] MEDS: 0.9% Saline Lock 10 ML Syringe IV ×2 (10:24→16:56)
[2022-09-01 10:33] LABS: Pathologist Review Reviewed
[2022-09-01 12:05] LABS: Bedside Glucose 139 mg/dL (74-106)
[2022-09-01] MEDS: Insulin Lispro 100 UNIT/ML INSULN.PEN SC ×2 (16:56→21:00)
[2022-09-01 17:15] LABS: Bedside Glucose 179 mg/dL (74-106)
[2022-09-01 17:54] LABS: Vancomycin, Trough Level 5.9 ug/mL (5.0-15.0)
[2022-09-01] MEDS: Atorvastatin Calcium 40 MG Tablet PO (21:00)
[2022-09-01 21:41] LABS: Bedside Glucose 192 mg/dL (74-106)
--- NOTE | 2022-09-01 23:47 | PCM.RX.CS ---
Consult Pharmacy has been consulted to manage selected antiobiotic: Vancomycin Type of Consult: Follow-up Labs: Sodium 140 mmol/L (136-145) 09/01/22 04:15 Potassium 3.8 mmol/L (3.5-5.1) 09/01/22 04:15 Chloride 113 mmol/L (98-107) H 09/01/22 04:15 Carbon Dioxide 21.0 mmol/L (21.0-32.0) 09/01/22 04:15 Anion Gap 6 (5-15) 09/01/22 04:15 BUN 13 mg/dL (7-18) 09/01/22 04:15 Creatinine 0.65 mg/dL (0.70-1.30) L 09/01/22 04:15 Est GFR (MDRD) Af Amer 158 mL/min (>60) 09/01/22 04:15 Est GFR (MDRD) Non-Af 131 mL/min (>60) 09/01/22 04:15 BUN/Creatinine Ratio 19.9 RATIO (10-20) 09/01/22 04:15 Glucose 134 mg/dL (74-106) H 09/01/22 04:15 Vancomycin Trough 5.9 ug/mL (5.0-15.0) 09/01/22 16:55 Microbiology: Microbiology 08/30/22 18:45 Urine, Clean Catch Urine Culture - Final Mixed Gram Positive Organisms 08/31/22 02:39 Stool Enteric Bacteriology - Final 08/31/22 02:39 Stool C. difficile DNA Amplification - Final 08/30/22 22:18 Mucosa - Nasopharyngeal Respiratory Panel (PCR) - Final 08/30/22 18:45 Urine, Clean Catch Legionella Antigen - Final 08/30/22 18:45 Urine, Clean Catch Streptococcus pneumoniae Antigen (M - Final 08/30/22 18:30 Nasal Secretion SARS-CoV-2 & FLU Antigen (Rapid) - Final Goal Trough: 15-20 mcg/mL Pharmacy Plan for Drug Dosing: Pharmacy Service will continue to monitor and adjust dosing as required. TORUGH 5.9 @ 12.5 HRS. INCREASE TO 1750 MG Q12H AND FOLLOW UP TROUGH PRIOR TO 4TH DOSE Follow-Up Labs: Trough Vancomycin Labs to be done on [date and time ordered]: 09/03 @ 1230
[2022-09-02 03:00] VITALS: BP 119/73; PULSE 84; RESP 22; TEMP 36.6; O2SAT 94
[2022-09-02 03:26] LABS: Absolute Lymphocyte Count 0.19 X10^3/uL (0.83-4.51); Absolute Neutrophil Count 14.8 X10^3/uL (2.0-7.7); Basophil# 0.08 X10^3/uL; Basophil% 0.5 % (0-1); Eosinophil# 0.09 X10^3/uL; Eosinophils% 0.6 % (0-5); Hematocrit 30.9 % (40-54); Hemoglobin 9.9 g/dL (13.0-16.5); Lymphocyte # 0.19 X10^3/ul (0.83-4.51); Lymphocyte % 1.2 % (19-41); Mean Corpuscular Hgb 29.8 pg (27.0-32.0); Mean Corpuscular Volume 93.1 fL (80-94); Mean Platelet Vol. 9.9 fl (6.2-12.0); Monocyte# 0.59 X10^3/uL; Monocyte% 3.7 % (0-10); NRBC Flagged by Analyzer 0 % (0-5); Neutrophil # 14.77 X10^3/uL (2.7-7.7); Neutrophil % 93.2 % (47-70); POSITIVE DIFFERENTIAL YES; POSITIVE MORPHOLOGY YES; Platelet Count 120 K/mm3 (150-450); RBC Distribution Width CV 15.1 % (11.6-14.6); RBC Distribution Width SD 52.6 fl (35.1-43.9); Red Blood Count 3.32 M/mm3 (4.6-6.2); White Blood Count 15.8 K/mm3 (4.4-11.0)
[2022-09-02 03:50] LABS: Anion Gap 7 (5-15); BUN 16 mg/dL (7-18); BUN/Creat Ratio 24.5 RATIO (10-20); Calcium,Total 8.5 mg/dL (8.5-10.1); Chloride 110 mmol/L (98-107); Creatinine, Serum 0.65 mg/dL (0.70-1.30); EST Glomerular Filtration Rate 131 mL/min (>60); Est Glom Filt Rate - Afr Amer 158 mL/min (>60); Estimated Creatinine Clearance 99.87 ml/min; Glucose 173 mg/dL (74-106); Magnesium 1.6 mg/dL (1.6-2.6); Phosphorus 1.9 mg/dL (2.5-4.9); Potassium 4.1 mmol/L (3.5-5.1); Sodium Level 137 mmol/L (136-145)
[2022-09-02 03:58] LABS: Differential Indicated SCAN CRITERIA MET
[2022-09-02 04:43] VITALS: BMI 29.5
[2022-09-02 04:56] LABS: Differential Comment SCANNED; Toxic Granulation 2+
[2022-09-02] MEDS: 0.9% Saline Lock 10 ML Syringe IV ×2 (05:16→17:11)
[2022-09-02] MEDS: Levothyroxine 50 MCG Tablet PO (05:16)
[2022-09-02] MEDS: Albuterol 2.5 MG/3 ML VIAL.NEB. INHALATION (06:51)
[2022-09-02] MEDS: Budesonide Respules 0.5 MG/2 ML AMPUL.NEB. INHALATION (06:51)
[2022-09-02 06:52] VITALS: PULSE 87; RESP 21; O2SAT 95
--- NOTE | 2022-09-02 07:55 | DCINST_ITS ---
Discharge Instructions Diet Discharge Diet: Low fat / Low cholesterol Activity Discharge Activity: Return to Normal Activity Dressing / Incision Call your doctor if you observe: Fever of 101 or Higher, Shortness of breath, Dizziness, Fainting spells, Swelling in the ankles, Chest pain and Increased palpitations (irregular heartbeat) Follow Up Care Test Results: Test results from this visit will be discussed in further detail at your follow- up appointment, if applicable. Discharge Plan Admission Admit Date/Time: 08/30/22 20:31 Attending Provider: Michael Salgado Primary Care Provider: Miguel Ángel Wright Consulting Providers: Eladio Castillo ; Brianna Guzmán Discharge Orders/Prescriptions Prescriptions: New levofloxacin 750 mg tablet 750 mg PO DAILY Qty: 7 0RF Continued atorvastatin 40 mg tablet 40 mg PO QHS omeprazole 40 mg capsule,delayed release(DR/EC) 40 mg PO DAILY PRN (Reason: gerd) venlafaxine 75 mg capsule,extended release 24hr 75 mg PO DAILY Label Comments: TAKE ONE CAPSULE BY MOUTH DAILY levothyroxine 50 mcg tablet 50 mcg PO DAILY Referrals / Follow Up: Miguel Ángel Wright MD [Primary Care Provider] - Within 1 Week Disposition Disposition (needs filled in before D/C Order can be placed): Home, Self Care
[2022-09-02] MEDS: Insulin Lispro 100 UNIT/ML INSULN.PEN SC (08:21)
[2022-09-02 08:51] LABS: Bedside Glucose 161 mg/dL (74-106)
[2022-09-02 09:00] VITALS: BP 126/78; PULSE 89; RESP 20; TEMP 36.7; O2SAT 95
[2022-09-02] MEDS: levoFLOXacin IV 750 MG/150 ML BAG 100 MG IV (09:17)
[2022-09-02] MEDS: Pantoprazole Sodium 40 MG Tablet PO (09:18)
[2022-09-02] MEDS: Venlafaxine XR 75 MG Capsule PO (09:18)
[2022-09-02] MEDS: Enoxaparin 40 MG/0.4 ML Syringe SC (09:22)
--- NOTE | 2022-09-02 09:29 | PCM.DC.SUM ---
Providers Date of Admission: 08/30/22 Primary Care Physician: Dr. Miguel Ángel Wright MD Consultations 08/31/22 03:22 Consult: [employer] Developer / Pulmonary Medicine Routine Consulting Provider: Eladio Castillo Reason for Consult: Septic shock, PNA EMERGENT Consult: No MD Notified: Yes Date Notified: 08/31/22 Time Notified: 02:16 Method of Notification: Text Reason For Visit: PNA, SEPSIS, ENCEPHALOPATHY Diagnosis Discharge Diagnosis (1) Sepsis: Status: Acute Code(s): A41.9 - Sepsis, unspecified organism Medications at Discharge Home Medications atorvastatin 40 mg tablet 40 mg PO QHS Check with primary doctor 09/30/19 omeprazole 40 mg capsule,delayed release 40 mg PO DAILY PRN gerd 09/30/19 levothyroxine 50 mcg tablet 50 mcg PO DAILY Check with primary doctor 11/11/21 venlafaxine 75 mg capsule,extended release 24 hr 75 mg PO DAILY Check with primary doctor 11/11/21 levofloxacin 750 mg tablet 750 mg PO DAILY #7 tabs 09/02/22 Hospital Course Operations None Procedures None Summary of Care Provided Minutes Spent on Discharge: 40 Hospital Course: Per HPI: The patient is a 62 y/o M w/ PMHx: Nonobstructive CAD, Severe Aortic Stenosis, Diabetes mellitus type II, Anxiety and Depression, Hypothyroidism, GERD, HLD, Tobacco use, Non-Hodgkin lymphoma following with Dr. Alvarez with ongoing chemotherapy of uncertain specific kind who presents to the [facility] ED on 08/30/22 with increased fatigue, malaise, fever onset today, increased lethargy, sleeping more, decreased oral intake and slight cough without marked sputum production or notable dyspnea prompting eventual ED evaluation. does report at home he was notable confused and initially for ED physician was also confused especially while notably febrile. Currently fever down although still flushed and warm but mental status back at baseline.? No one else in the house has been ill recently.? Work-up in the ED included initially T1 100.7 with Tmax 101.3 and most current 99.8, heart rate initially 132 with most recent repeat 120, BP initially 115/62 with most recent repeat 87/60, respiratory rate 18, 94% oxygenation on room air, CBC with WC 14.8, hemoglobin 13.3, platelet 189 with left shift and lymphopenia, unremarkable coags, CMP with sodium 133, potassium 3.3, glucose 185, lactic acid 1.2, troponin 54, unremarkable hepatic profile, urinalysis with no obvious evidence of UTI, urine culture pending per ED, blood culture x2 pending per ED, rapid SARS COVID and influenza antigens negative, chest x-ray with degenerative changes with no acute cardiopulmonary findings, CT of the chest with left lower lobe retrocardiac pneumonia as well as atherosclerotic changes of the thoracic aorta and coronary arteries.? In the ED patient administered NS 2L, morphine sulfate 2 mg IV x1, Toradol 15 mg IV x1 as well as Tylenol 1000 mg p.o. x1, IV rocephin and azithromycin. Hospital Course: 1. Acute septic shock secondary to left lower lobe pneumonia with metabolic encephalopathy?62-year-old male presents to the hospital with confusion was found to have a left lower lobe pneumonia. Overnight on his admission he developed refractory hypotension and need to be placed to the ICU for pressors. He received pressors for about 24 hours and then was able to maintain his blood pressures on his own. He had significant improvement with antibiotics and this morning was ambulatory and doing well on his own. I discussed with him the plan for possible discharge today he expressed understanding of the risk benefits going home and would like to go home today. Unfortunately we do not have any culture data so we will proceed with 7 days of Levaquin and have him follow-up with his PCP as an outpatient. 2. Nonobstructive coronary artery disease, severe aortic valve stenosis, hyperlipidemia, non-Hodgkin's lymphoma, hypothyroidism, GERD are all chronic medical conditions which complicate his care. His home medications were continued where appropriate. Physical Exam Narrative General: Alert, oriented x3, Cooperative, No apparent distress HEENT: Atraumatic, PERRLA, EOMI, Normocephalic Oral: Moist mucosa Neck: Supple, No JVD Lungs: Diminished, Normal air movement, No rhonchi, No wheeze, No rales Cardiovascular: Regular rate, Regular Rhythm, Normal S1, Normal S2, murmurs Abdomen: Soft, Non Tender, Non-Distended, No Hepato-splenomegaly Extremities: No edema, Capillary Refill Less than 3 Seconds Skin: No rashes, No breakdown Musculoskeletal: No Tenderness to Palpation of Joints or Extremities Neurological: Motor Exam 5/5 strength throughout, Sensory exam intact to light touch and pain Psych/Mental Status: Normal affect Medical Records Data Medical Nutrition Assessment Dietitian: Malnutrition Criteria Met Start: 08/31/22 15:24 Freq: Status: Active Protocol: Document 08/31/22 15:24 AG (Rec: 08/31/22 15:24 AG [id number]) Nutrition Malnutrition Evidence of Malnutrition Exists Yes Malnutrition (severe): Chronic Evidenced By Suboptimal Energy Intake ( Severe),Weight Loss (Severe) Clinical Problem Chronic Disease or Condition Related Malnutrition Etiology chronic severe malnutrition related to inadequate energy intake w/ increased energy needs d/t nonhodgkins lymphoma Signs/Symptoms as evidenced by reported unintentional 24.9#/13% wt loss x 2-3 months; estimated energy intake meeting <75% of estimated energy needs > 3 months Status Active Problem Recommendation Dietitian Recommendations/Changes will liberalize diet to CHO controlled given evidence of malnutrition; 120mL Glucerna 4x/day w/ medpass for additional calories/protein if consumed Weight / BMI Weight Weight: 177 lb 0.499 oz Body Mass Index (BMI) 29.5 ABG / Lab / Microbiology Data Result Diagrams: 09/02/22 03:16 09/02/22 03:16 Laboratory: Laboratory Results - last 24 hr 09/01/22 04:15: Diff Path Review Reviewed 09/01/22 11:40: POC Glucose 139 H 09/01/22 16:54: POC Glucose 179 H 09/01/22 16:55: Vancomycin Trough 5.9 09/01/22 20:58: POC Glucose 192 H 09/02/22 03:16: WBC 15.8 H, RBC 3.32 L, Hgb 9.9 L, Hct 30.9 L, MCV 93.1, MCH 29.8, MCHC 32.0, RDW Std Deviation 52.6 H, RDW Coeff of Yvonne 15.1 H, Plt Count 120 L, MPV 9.9, Immature Gran % (Auto) 0.800, Neut % (Auto) 93.2 H, Lymph % (Auto) 1.2 L, [place] % (Auto) 3.7, Eos % (Auto) 0.6, Baso % (Auto) 0.5, Absolute Neuts (auto) 14.8 H, Absolute Lymphs (auto) 0.19 L, Nucleated RBC % 0, Differential Comment SCANNED, Toxic Granulation 2+ 09/02/22 03:16: Sodium 137, Potassium 4.1, Chloride 110 H, Carbon Dioxide 20.0 L, Anion Gap 7, BUN 16, Creatinine 0.65 L, Estim Creat Clear Calc 99.87, Est GFR (MDRD) Af Amer 158, Est GFR (MDRD) Non-Af 131, BUN/Creatinine Ratio 24.5 H, Glucose 173 H, Calcium 8.5, Phosphorus 1.9 L, Magnesium 1.6 09/02/22 08:19: POC Glucose 161 H Microbiology: Microbiology 08/30/22 18:45 Urine, Clean Catch Urine Culture - Final Mixed Gram Positive Organisms 08/31/22 02:39 Stool Enteric Bacteriology - Final 08/31/22 02:39 Stool C. difficile DNA Amplification - Final 08/30/22 22:18 Mucosa - Nasopharyngeal Respiratory Panel (PCR) - Final 08/30/22 18:45 Urine, Clean Catch Legionella Antigen - Final 08/30/22 18:45 Urine, Clean Catch Streptococcus pneumoniae Antigen (M - Final 08/30/22 18:30 Nasal Secretion SARS-CoV-2 & FLU Antigen (Rapid) - Final D/C Instructions Discharge Diet: Low fat / Low cholesterol Call your doctor if you observe: Fever of 101 or Higher, Shortness of breath, Dizziness, Fainting spells, Swelling in the ankles, Chest pain and Increased palpitations (irregular heartbeat) Meaningful Use Info Meaningful Use Diagnoses (Choose all that apply): None applicable Discharge Plan Admission Admit Date/Time: 08/30/22 20:31 Attending Provider: Michael Salgado Primary Care Provider: Miguel Ángel Wright Consulting Providers: Eladio Castillo ; Brianna Guzmán Discharge Orders/Prescriptions Prescriptions: New levofloxacin 750 mg tablet 750 mg PO DAILY Qty: 7 0RF Continued atorvastatin 40 mg tablet 40 mg PO QHS omeprazole 40 mg capsule,delayed release(DR/EC) 40 mg PO DAILY PRN (Reason: gerd) venlafaxine 75 mg capsule,extended release 24hr 75 mg PO DAILY Label Comments: TAKE ONE CAPSULE BY MOUTH DAILY levothyroxine 50 mcg tablet 50 mcg PO DAILY Referrals / Follow Up: Miguel Ángel Wright MD [Primary Care Provider] - Within 1 Week Disposition Disposition (needs filled in before D/C Order can be placed): Home, Self Care Charges/Coding Visit Charges Inpatient E&M: 71121 Disch Hosp >30min
[2022-09-02 12:05] LABS: Bedside Glucose 149 mg/dL (74-106)
== END 2022-09-02 17:30 | disposition home or self-care (01) | DRG 871 ==
LOC: ED 16:34 → PCU 20:42 → ICU 08-31 07:04 → PCU 08-31 14:50
PROVIDERS: Family Medicine; Internal Medicine Critical Care Medicine; Admitting Provider Family Medicine; Emergency Provider Student in an Organized Health Care Education/Training Program; PCP Internal Medicine; Visit Provider Internal Medicine
DX: A41.9 Sepsis, unspecified organism (principal); J18.9 Pneumonia, unspecified organism; R65.21 Severe sepsis with septic shock; G93.41 Metabolic encephalopathy; E43 Unspecified severe protein-calorie malnutrition; C83.38 Diffuse large B-cell lymphoma, lymph nodes of multiple sites; E87.1 Hypo-osmolality and hyponatremia; E11.9 Type 2 diabetes mellitus without complications; E87.6 Hypokalemia; E78.5 Hyperlipidemia, unspecified; E03.9 Hypothyroidism, unspecified; I25.10 Atherosclerotic heart disease of native coronary artery without angina pectoris; K21.9 Gastro-esophageal reflux disease without esophagitis; I35.0 Nonrheumatic aortic (valve) stenosis; F41.9 Anxiety disorder, unspecified; F17.210 Nicotine dependence, cigarettes, uncomplicated; Z68.29 Body mass index [BMI] 29.0-29.9, adult; F32.A Depression, unspecified; R09.02 Hypoxemia; Z20.822 Contact with and (suspected) exposure to COVID-19; Z79.890 Hormone replacement therapy; Z79.899 Other long term (current) drug therapy
CPT/HCPCS: 36591; 71045; 71250; 80048; 80053; 80202; 81001; 82962; 83605; 83735; 84100; 84145; 84484; 85025; 85610; 85730; 87040; 87086; 87088; 87428; 87449; 87493; 87506; 87633; 87635; 93005; 94640; 94668; 97162; 97165; 97530; 99284; 99406; J7030; J7040; J7050; A4216; U0005

== ENCOUNTER 2022-09-26 14:31 | Emergency (ER) | payer OTHER, SELFPAY ==
[2022-09-26 14:32] VITALS: BP 132/65; PULSE 84; RESP 16; TEMP 36.2; O2SAT 96; BMI 29.9
[2022-09-26 15:44] VITALS: BP 132/65; PULSE 84; RESP 16; TEMP 36.2; O2SAT 96
--- NOTE | 2022-09-26 16:00 | VDLE_ITS ---
Reason For Study: swelling RIGHT LEFT GSV is normal. GSV is normal. CFV is compressible, spontaneous, competent CFV is compressible, spontaneous, competent, and demonstrates pulsatile venous flow. and demonstrates pulsatile venous flow. FV is compressible, spontaneous, competent FV is compressible, spontaneous, competent and demonstrates pulsatile venous flow. and demonstrates pulsatile venous flow. POP V is compressible, spontaneous, competent POP V is compressible, spontaneous, competent and demonstrates pulsatile venous flow. and demonstrates pulsatile venous flow. T/P Trunk is compressible. T/P Trunk is compressible. PTV is compressible. PTV is compressible. RT PerV is compressible. LT PerV is compressible. Procedure This is a venous duplex using B-mode, color flow and spectral Doppler. Exam performed portable in ED. The exam was diagnostic. A preliminary report was called and/or faxed to Dr. Acosta. VL/Venous Duplex US - Ankur Extrem Interpretation Summary No evidence for acute deep venous thrombosis bilateral lower extremities with p atent and compressible bilateral great saphenous veins. Pulsatile venous flow was noted b ilaterally consistent with proximal venous hypertension or obstruction. Clinical correlation would be appropriate. Ordering Physician: Garrison Acosta Performed By: Bret Sethi RVT
--- NOTE | 2022-09-26 16:01 | EX.ED.DYSGE1 ---
HPI History of Present Illness Chief Complaint: Cellulitis Informant: patient and family Narrative Narrative: Patient presents with concern for cellulitis on his leg. Patient is currently getting chemotherapy for lung cancer. He states he feels well now. But he has noticed has had some swelling around his ankles for about 5 days to a week. The right one especially is getting red. Its not really painful. He has no chest pain or trouble breathing. He states he has no fevers or chills. He does not at all feel sick. He was in the hospital recently for sepsis and pneumonia. But he states now he feels great. Never had DVT or PE. He is not being anticoagulated now. [facility] Medical History Adjustment disorder Anxiety and depression CAD (coronary artery disease) Hyperlipidemia Hypothyroidism Nicotine dependence Non-Hodgkin lymphoma Nonrheumatic aortic (valve) stenosis Tobacco use Tubular adenoma of colon Type 2 diabetes mellitus without complication Urolithiasis Home Medications atorvastatin 40 mg tablet 40 mg PO QHS Check with primary doctor 09/30/19 [History Last Taken Unknown] omeprazole 40 mg capsule,delayed release 40 mg PO DAILY PRN gerd 09/30/19 [History Last Taken Unknown] levothyroxine 50 mcg tablet 50 mcg PO DAILY Check with primary doctor 11/11/21 [History Last Taken Unknown] venlafaxine 75 mg capsule,extended release 24 hr 75 mg PO DAILY Check with primary doctor 11/11/21 [History Last Taken Unknown] levofloxacin 750 mg tablet 750 mg PO DAILY #7 tabs 09/02/22 [Rx Last Taken Unknown] Allergy/AdvReac Type Severity Reaction Status Date / Time meclizine AdvReac Other Verified 09/26/22 14:33 Penicillins AdvReac Rash Verified 09/26/22 14:33 Family History Father Myocardial infarction Heart disease Hypertension Mother Heart disease Cancer Brother Hypertension Thyroid disorder Sister Breast cancer Surgical History History of extraction of renal calculus History of lymph node biopsy S/P cholecystectomy S/P vascular surgery Social History household members: spouse Smoking Status: Current every day smoker tobacco type: cigarettes how long ago did patient quit smoking: Former chew tobacco, former cigars, now only occasional cigarette. alcohol intake: current alcohol intake frequency: a few times a week Alcohol type: beer substance use type: does not use caffeine: Yes Type: coffee Number of servings: 1 ROS ROS ED ROS Narrative A complete review of systems was performed and is negative except as documented in the history of present illness. Some specific details below. Constitutional: No recent fevers or chills. He has no malaise. He does not feel ill. EYE: No discharge, visual complaints, or pain. ENT: No difficulty swallowing. No swelling. No pain. No reflux symptoms. CV: No chest pain or palpitations. He does have a known bad aortic valve but he states it does not seem to cause him any symptoms. Respiratory: No cough trouble breathing. No hemoptysis. GI: No abdominal pain. No nausea vomiting diarrhea. No blood in stool. : No frequency dysuria or hematuria. Musculoskeletal: No recent trauma. No pains. See history of present illness. Skin: See history of present illness. Neuro: No weakness or numbness. Endocrine: No polyuria or polydipsia. EXAM Physical Exam Narrative Exam Narrative: CONSTITUTIONAL: Patient is nontoxic in appearance. The patient looks comfortable. Work of breathing looks normal. HEENT: No notable trauma. Mucous membranes moist. No sinus tenderness. No indication of pain with swallowing. EYES: No conjunctival injection. No proptosis. NECK:No JVD. No stridor. CARDIOVASCULAR: Regular rate. Regular rhythm. Patient does have a 3 out of 6 systolic murmur. RESPIRATORY: No respiratory distress. Breathing is unlabored. No wheezes. No rhonchi. No rales. No pain with a deep breath. No chest wall tenderness. He does have a Mediport with no sign of infection. GASTROINTESTINAL: Not distended. Bowel sounds are normal. No tenderness. No guarding. No rebound. No palpable mass. No bruit is heard. GENITOURINARY: No tenderness over the bladder. No CVA tenderness. MUSCULOSKELETAL: Patient does have a small amount of +1 bilateral edema in the lower third of his shins and ankles. No asymmetry. No distended veins. No cord or tenderness along the deep venous system. There are red bands around the lower leg in the area that would be the top of the patient's boot. About 4 to 5 inches above this there is another band of erythema that would likely be the top of the sock. There is no generalized erythema. There is no tenderness. There is no lymphangitic streaking. There are no proximal lymph nodes. NEUROLOGICAL: Patient is alert and appropriate. No focal deficit noted. SKIN: See above exam. PSYCHIATRIC: Patient is calm. Mood is appropriate. Const Vital Signs: 09/26/22 14:32 09/26/22 15:44 Temperature 97.2 F L 97.2 F L Temperature Source Temporal Temporal Pulse Rate 84 84 Respiratory Rate 16 16 Blood Pressure 132/65 H 132/65 H Blood Pressure Mean 87 87 Pulse Ox 96 96 Oxygen Delivery Method Room Air Room Air MDM MDM MDM Narrative Medical decision making narrative: Patient CBC shows some mild anemia but this is his baseline. White count platelets are normal. Patient's electrolytes showed some mildly low potassium but no other acute process. Patient's glucose is slightly elevated 143. Patient's ultrasound is negative for any sign of DVT. We discussed options. This patient has no feeling of illness, fevers, white count, change in neutrophils. I do not see indication for antibiotics. This looks like a localized allergic reaction. This may be to elastic dyes or material or even soaps in the socks. He will keep the area clean and try to avoid any foot wear for a few days. We discussed using topical Benadryl or hydrocortisone cream. We also discussed what signs of cellulitis or change would look like and what would prompt them to return. Lab Data Attestation: I reviewed the patient's lab results. Labs: Laboratory Results - last 24 hr 09/26/22 09/26/22 16:20 16:20 WBC 5.3 RBC 3.38 L Hgb 10.0 L Hct 31.9 L MCV 94.4 H MCH 29.6 MCHC 31.3 L RDW Std Deviation 50.6 H RDW Coeff of Yvonne 14.5 Plt Count 195 MPV 9.0 Immature Gran % (Auto) 0.900 Neut % (Auto) 75.4 H Lymph % (Auto) 5.1 L [place] % (Auto) 13.8 H Eos % (Auto) 4.4 Baso % (Auto) 0.4 Absolute Neuts (auto) 4.0 Absolute Lymphs (auto) 0.27 L Nucleated RBC % 0 Differential Comment SEE COMMENT Platelet Estimate ADEQUATE RBC Morphology N CHROM Anisocytosis RARE Macrocytosis RARE Sodium 144 Potassium 3.2 L Chloride 111 H Carbon Dioxide 28.0 Anion Gap 5 BUN 11 Creatinine 0.68 L Estim Creat Clear Calc 95.47 Est GFR (MDRD) Af Amer 151 Est GFR (MDRD) Non-Af 125 BUN/Creatinine Ratio 16.2 Glucose 143 H Calcium 8.5 Discharge Plan Triage Chief Complaint: Cellulitis ED Provider: Garrison Acosta Dx/Rx/DC Orders Clinical Impression: Allergic contact dermatitis of lower leg Instructions: ED Contact Dermatitis Prescriptions: No Action atorvastatin 40 mg tablet 40 mg PO QHS omeprazole 40 mg capsule,delayed release(DR/EC) 40 mg PO DAILY PRN (Reason: gerd) venlafaxine 75 mg capsule,extended release 24hr 75 mg PO DAILY Label Comments: TAKE ONE CAPSULE BY MOUTH DAILY levothyroxine 50 mcg tablet 50 mcg PO DAILY levofloxacin 750 mg tablet 750 mg PO DAILY Qty: 7 0RF Primary Care Provider: Miguel Ángel Wright Referrals: Miguel Ángel Wright MD [Primary Care Provider] - 3-5 Days if not improving Activity Restrictions/Additional Instructions: Try to avoid wearing footwear and socks for several days. May try topical Benadryl or 1% hydrocortisone cream on red areas. Please return with spreading redness, redness streaking up the legs, pain, fevers, nausea or any other concerns. Disposition Disposition: Home, Self Care
[2022-09-26 16:41] LABS: Absolute Lymphocyte Count 0.27 X10^3/uL (0.83-4.51); Basophil# 0.02 X10^3/uL; Basophil% 0.4 % (0-1); Eosinophil# 0.23 X10^3/uL; Eosinophils% 4.4 % (0-5); Hematocrit 31.9 % (40-54); Lymphocyte # 0.27 X10^3/ul (0.83-4.51); Lymphocyte % 5.1 % (19-41); Mean Corp Hgb Conc 31.3 g/dL (32-36); Mean Corpuscular Hgb 29.6 pg (27.0-32.0); Mean Corpuscular Volume 94.4 fL (80-94); Monocyte# 0.73 X10^3/uL; Monocyte% 13.8 % (0-10); NRBC Flagged by Analyzer 0 % (0-5); Neutrophil # 3.98 X10^3/uL (2.7-7.7); Neutrophil % 75.4 % (47-70); POSITIVE DIFFERENTIAL YES; Platelet Count 195 K/mm3 (150-450); RBC Distribution Width CV 14.5 % (11.6-14.6); RBC Distribution Width SD 50.6 fl (35.1-43.9); Red Blood Count 3.38 M/mm3 (4.6-6.2); White Blood Count 5.3 K/mm3 (4.4-11.0)
[2022-09-26 16:43] LABS: Differential Indicated SCAN CRITERIA MET
[2022-09-26 16:55] LABS: Anion Gap 5 (5-15); BUN 11 mg/dL (7-18); BUN/Creat Ratio 16.2 RATIO (10-20); Calcium,Total 8.5 mg/dL (8.5-10.1); Chloride 111 mmol/L (98-107); Creatinine, Serum 0.68 mg/dL (0.70-1.30); EST Glomerular Filtration Rate 125 mL/min (>60); Est Glom Filt Rate - Afr Amer 151 mL/min (>60); Estimated Creatinine Clearance 95.47 ml/min; Glucose 143 mg/dL (74-106); Potassium 3.2 mmol/L (3.5-5.1); Sodium Level 144 mmol/L (136-145)
[2022-09-26 17:05] LABS: Platelet Estimate ADEQUATE (ADEQ); Red Cell Morphology N CHROM NORMAL (NORM C&C)
[2022-09-26 17:06] LABS: Anisocytosis RARE; Macrocytosis RARE
== END 2022-09-26 17:44 | disposition home or self-care (01) ==
PROVIDERS: Emergency Provider Emergency Medicine; PCP Internal Medicine; Visit Provider Emergency Medicine
DX: L23.9 Allergic contact dermatitis, unspecified cause (principal); C34.90 Malignant neoplasm of unspecified part of unspecified bronchus or lung; E11.65 Type 2 diabetes mellitus with hyperglycemia; M79.89 Other specified soft tissue disorders; I25.10 Atherosclerotic heart disease of native coronary artery without angina pectoris; I35.0 Nonrheumatic aortic (valve) stenosis; E78.5 Hyperlipidemia, unspecified; E03.9 Hypothyroidism, unspecified; F17.210 Nicotine dependence, cigarettes, uncomplicated; Z79.890 Hormone replacement therapy; Z79.899 Other long term (current) drug therapy
CPT/HCPCS: 36591; 80048; 85025; 93970; 99283; A4216

== ENCOUNTER 2022-11-20 20:12 | Emergency (ER) | payer OTHER, SELFPAY ==
[2022-11-20 20:13] VITALS: BP 119/73; PULSE 83; RESP 16; TEMP 38.4; O2SAT 99; BMI 28.8
--- NOTE | 2022-11-20 20:29 | CT_ITS ---
STUDY: CT ABDOMEN AND PELVIS WITH CONTRAST REASON FOR EXAM: Male, 62 years old. Left abd pain, fever RADIATION DOSAGE (If Supplied By Facility): CTDIvol = ( 13.38 ) mGy, DLP = ( 883.66 ) mGycm TECHNIQUE: Transaxial images were obtained from the dome of the diaphragm to the symphysis pubis without oral contrast. IV 100mL Isovue-300 was administered. Sagittal and coronal images were reconstructed. Individualized dose optimization techniques were used for this CT. COMPARISON: None. FINDINGS: The visualized lung bases are unremarkable. There is aortic valve prosthesis. Normal liver. There are surgical clips in the gallbladder fossa consistent with a prior cholecystectomy. Normal spleen. Normal pancreas. Normal bilateral adrenal glands. There are 3 cysts of the right kidney measuring up to 1.5 cm. There is a 0.6 cm cyst of the left kidney. There is 0.4 cm stone in the upper pole of the right kidney. There are 0.2 and 0.5 cm stones of the left kidney. Normal visualized stomach. Normal small intestine. Normal colon. There is abundant stool. The appendix is visualized and appears normal. There is diffuse atherosclerotic calcification of the abdominal aorta, without a demonstrated aneurysm. Normal inferior vena cava. Normal retroperitoneum. Normal urinary bladder. There is no free fluid in the abdomen or pelvis Normal abdominal wall. There is degenerative change of the spine CT/Abdomen/Pelvis W IV Cont ONLY IMPRESSION: Bilateral renal stones. No hydronephrosis. Electronically Signed: Pantera Adrian MD at 22:54 EDT ,
--- NOTE | 2022-11-20 20:29 | EKG12_ITS ---
Test Reason : DYSRHYTHMIA Blood Pressure : / mmHG Vent. Rate : 079 BPM Atrial Rate : 079 BPM P-R Int : 148 ms QRS Dur : 090 ms QT Int : 364 ms P-R-T Axes : -16 011 017 degrees QTc Int : 417 ms Normal sinus rhythm Normal ECG Confirmed by MEENA CANO, YARELIS ([id number]), managing editor BIENVENIDO DUTTON ([id number]) on 11/21/2022 9:42:23 AM Referred By: BB Confirmed By:YARELIS ROBLEDO MD
--- NOTE | 2022-11-20 20:35 | EX.ED.DYSGE1 ---
HPI History of Present Illness Chief Complaint: Fever Informant: patient and spouse/S.O. Narrative Narrative: Patient with fevers and feeling malaised 2 days. He had a TAVR a little more than 1 week ago for aortic stenosis, performed at [facility]. He states he has a minor cough nonproductive, no dyspnea, he has a mild headache, and no other significant symptoms except for some very mild left upper quadrant abdominal pain. He states a family member has similar symptoms and he thinks it is just a bug. is concerned that several weeks ago he was admitted to the hospital for an pneumonia that was retrocardiac and cold despite normal chest x-ray, this is according to her and not records. She is requesting a CT scan. [facility] Medical History Adjustment disorder Anxiety and depression CAD (coronary artery disease) Hyperlipidemia Hypothyroidism Nicotine dependence Non-Hodgkin lymphoma Nonrheumatic aortic (valve) stenosis Tobacco use Tubular adenoma of colon Type 2 diabetes mellitus without complication Urolithiasis Home Medications atorvastatin 40 mg tablet 40 mg PO QHS Check with primary doctor 09/30/19 [History Last Taken Unknown] omeprazole 40 mg capsule,delayed release 40 mg PO DAILY PRN gerd 09/30/19 [History Last Taken Unknown] levothyroxine 50 mcg tablet 50 mcg PO DAILY Check with primary doctor 11/11/21 [History Last Taken Unknown] venlafaxine 75 mg capsule,extended release 24 hr 75 mg PO DAILY Check with primary doctor 11/11/21 [History Last Taken Unknown] acyclovir 400 mg tablet 400 mg PO BID 11/20/22 [History Last Taken Unknown] furosemide 20 mg tablet 20 mg PO DAILY 11/20/22 [History Last Taken Unknown] metoprolol tartrate 25 mg tablet 25 mg PO QHS 11/20/22 [History Last Taken Unknown] nirmatrelvir 300 mg (150 mg x2)-ritonavir 100 mg tablet,dose pack (Paxlovid) See Rx Instructions PO .COMPLEX #30 tabs 11/20/22 [Rx Last Taken Unknown] promethazine 25 mg tablet 25 mg PO Q6H PRN nausea 11/20/22 [History Last Taken 11/20/22] sacubitril 24 mg-valsartan 26 mg tablet (Entresto) 1 tab PO BID 11/20/22 [History Last Taken Unknown] sitagliptin phosphate 25 mg tablet (Januvia) 25 mg PO DAILY 11/20/22 [History Last Taken Unknown] Allergy/AdvReac Type Severity Reaction Status Date / Time cephalexin [From Keflex] Allergy Hives Verified 11/20/22 20:17 meclizine AdvReac Other Verified 11/20/22 20:16 Penicillins AdvReac Rash Verified 11/20/22 20:16 Family History Father Myocardial infarction Heart disease Hypertension Mother Heart disease Cancer Brother Hypertension Thyroid disorder Sister Breast cancer Surgical History History of extraction of renal calculus History of lymph node biopsy S/P cholecystectomy S/P vascular surgery Social History household members: spouse Smoking Status: Current every day smoker tobacco type: cigarettes how long ago did patient quit smoking: Former chew tobacco, former cigars, now only occasional cigarette. alcohol intake: current alcohol intake frequency: a few times a week Alcohol type: beer substance use type: does not use caffeine: Yes Type: coffee Number of servings: 1 ROS ROS ED Constitutional Constitutional ED: Reports chills, fever(s), headache(s) and malaise Eyes Eyes: Denies blurry vision, change in vision or diplopia ENT ENT ED: Denies ear pain, rhinorrhea or sore throat Cardiovascular Cardiovascular: Denies chest pain or palpitations Respiratory/Chest Respiratory/Chest: Reports cough; Denies dyspnea Gastrointestinal Gastrointestinal: Reports abdominal pain; Denies diarrhea, hematemesis, hematochezia, melena, nausea or vomiting Genitourinary Genitourinary ED: Denies dysuria or hematuria Musculoskeletal Musculoskeletal: Denies back pain or neck pain Integumentary Denies abscess or rash Neurologic Neurologic: Reports headache(s); Denies paresthesias or weakness Psychiatric Psychiatric: Denies anxiety or suicidal thoughts EXAM Physical Exam Const Vital Signs: 11/20/22 20:13 11/20/22 21:13 11/20/22 21:13 Temperature 101.1 F H 100.9 F H 100.9 F H Temperature Source Oral Oral Oral Pulse Rate 83 80 80 Respiratory Rate 16 16 16 Respiratory Effort Respiratory Pattern Blood Pressure 119/73 127/78 H 127/78 H Blood Pressure Mean 88 94 94 Pulse Ox 99 100 100 Oxygen Delivery Method Room Air Room Air Room Air 11/20/22 21:13 11/20/22 21:13 11/20/22 22:00 Temperature 100.7 F H Temperature Source Oral Pulse Rate 78 Respiratory Rate 18 Respiratory Effort Normal Respiratory Pattern Normal Blood Pressure 139/80 H Blood Pressure Mean 99 Pulse Ox 97 Oxygen Delivery Method Room Air Room Air Positive well nourished and well developed Constitutional Narrative: Well-appearing in no distress General Appearance ED: well developed and NAD HEENT Reports moist mucous membranes normocephalic and atraumatic Eyes PERRL and EOMs intact bilaterally Neck full ROM, no lymphadenopathy and supple Chest Wall inspection of chest normal and palpation of chest normal Resp normal respiratory effort and clear to auscultation bilaterally Cardio regular rate and regular rhythm Heart Sounds: murmur systolic I/ soft GI non-distended GI Narrative: Mild left mid abdominal tenderness no guarding or rebound tenderness no pulsatile mass. No rashes. Negative: Negative Webb Ortiz. Auscultation: normoactive bowel sounds Palpation: soft Back/Spine no CVA tenderness General Back: other FROM Extremity normal to inspection General Extremety ED: Negative for edema, pulses abnormal or tenderness General Extremity: Negative for edema or pulses abnormal Neuro oriented x3, CN's II-XII intact bilaterally and no sensory deficits noted Sensorium / Orientation: awake and alert Motor Exam: strength 5/5 throughout Psych mental status grossly normal Skin no rashes or lesions noted and no wounds MDM MDM MDM Narrative Medical decision making narrative: Septic work-up obtained including blood cultures given his recent interventional procedure, and treated his fever with Tylenol and he was given empiric liter of IV fluid bolus. His COVID-19 test returned positive, influenza negative, he does have leukopenia which is consistent with COVID. His lungs are clear his oxygen levels are excellent, chest x-ray 2 views of my interpretation shows no acute pneumonia including retrocardiac space, and furthermore on his CT abdomen/pelvis I see no lower lung infiltrates on the lung windows. I reviewed the images and the report which I agree with, basically showed bilateral small nephrolithiasis without signs of obstruction or anything else acute. We will treat him with Paxlovid given his relative immunocompromised state and meeting EUA criteria. Adjusting his medications appropriately, No dyspnea now or need for evaluating for PE, blood cultures sent and he is otherwise stable for discharge home. Lab Data Attestation: I reviewed the patient's lab results. Labs: Laboratory Results - last 24 hr 11/20/22 20:41 WBC 4.3 L RBC 3.59 L Hgb 10.4 L Hct 32.9 L MCV 91.6 MCH 29.0 MCHC 31.6 L RDW Std Deviation 46.3 H RDW Coeff of Yvonne 13.8 Plt Count 124 L MPV 9.6 Immature Gran % (Auto) 1.200 H Neut % (Auto) 74.4 H Lymph % (Auto) 8.2 L [place] % (Auto) 14.1 H Eos % (Auto) 1.4 Baso % (Auto) 0.7 Absolute Neuts (auto) 3.2 Absolute Lymphs (auto) 0.35 L Nucleated RBC % 0 Differential Comment SEE COMMENT Diff Path Review May foll Platelet Estimate SLT DEC RBC Morphology N CHROM Anisocytosis RARE Macrocytosis RARE Ovalocytes RARE PT 13.9 INR 1.1 APTT 35.7 Sodium 137 Potassium 3.7 Chloride 104 Carbon Dioxide 27.0 Anion Gap 6 BUN 13 Creatinine 0.69 L Estim Creat Clear Calc 94.08 Est GFR (MDRD) Af Amer 148 Est GFR (MDRD) Non-Af 122 BUN/Creatinine Ratio 18.8 Glucose 111 H Lactic Acid 0.9 Calcium 8.9 Total Bilirubin 0.30 AST 22 ALT 26 Alkaline Phosphatase 88 Troponin I High Sens 19 Total Protein 6.1 L Albumin 3.1 L Globulin 3.0 Albumin/Globulin Ratio 1.0 Urine Color Yellow Urine Clarity Clear Urine pH 7.0 Ur Specific [place] 1.015 Urine Protein 15 H Urine Glucose (UA) Normal Urine Ketones Negative Urine Occult Blood 10 H Urine Nitrite Negative Urine Bilirubin Negative Urine Urobilinogen Normal Ur Leukocyte Esterase Negative Urine RBC 0 SEEN Urine WBC 0 SEEN Ur Squamous Epith Cells 0 SEEN Urine Bacteria 0 SEEN Urine Mucus 0 SEEN Radiography Diagnostic Testing: Clinical Impression(s) from Imaging Studies Abdomen/Pelvis CT 11/20/22 20:29 IMPRESSION: Bilateral renal stones. No hydronephrosis. Electronically Signed: Pantera Adrian MD at 22:54 EDT , Chest X-Ray 11/20/22 21:45 IMPRESSION: Degenerative changes, as described above. No demonstrated acute cardiopulmonary process. Electronically Signed: Pantera Adrian MD at 23:01 EDT Reading Location ID and State: [address] [place] [address] , Service support , Rhythm Strip Rhythm Strip: Sinus Rhythm Rate: 80 Ectopy: None EKG Initial EKG: Attestation: I personally reviewed and interpreted this EKG as follows: Interpretation: Sinus Rhythm and No Acute Injury Pattern Comments: nml ekg Discharge Plan Triage Chief Complaint: Fever ED Provider: Pantera Muhammad Dx/Rx/DC Orders Clinical Impression: COVID-19 Instructions: Coronavirus Disease 2019 (COVID-19): Caring for Yourself or Others Prescriptions: New Paxlovid 300 mg (150 mg x 2)-100 mg tablets,dose pack See Rx Instructions .ROUTE .COMPLEX Qty: 30 0RF Rx Instructions: take TWO 150 mg tablets of nirmatrelvir with ONE 100 mg tablet of ritonavir twice daily for 5 days Continued omeprazole 40 mg capsule,delayed release(DR/EC) 40 mg PO DAILY PRN (Reason: gerd) venlafaxine 75 mg capsule,extended release 24hr 75 mg PO DAILY Patient Comments: TAKE ONE CAPSULE BY MOUTH DAILY levothyroxine 50 mcg tablet 50 mcg PO DAILY furosemide 20 mg tablet 20 mg PO DAILY Patient Comments: TAKE ONE TABLET BY MOUTH ONCE DAILY Entresto 24-26 mg tablet 1 tab PO BID acyclovir 400 mg tablet 400 mg PO BID Januvia 25 mg tablet 25 mg PO DAILY metoprolol tartrate 25 mg tablet 25 mg PO QHS Patient Comments: TAKE ONE TABLET BY MOUTH as a 1 time dose. Take AT 7 IN THE MORNING prior TO CT scan. promethazine 25 mg tablet 25 mg PO Q6H PRN (Reason: nausea) Patient Comments: TAKE ONE TABLET BY MOUTH EVERY 6 HOURS NEEDED FOR NAUSEA Held atorvastatin 40 mg tablet 40 mg PO QHS Hold Instructions: Resume on 11/26/22. while taking Paxlovid Discontinued levofloxacin 750 mg tablet 750 mg PO DAILY Qty: 7 0RF cephalexin 500 mg capsule 500 mg PO Q6H Patient Comments: TAKE ONE CAPSULE BY MOUTH FOUR TIMES DAILY FOR 7 DAYS Stand Alone Forms: ED Work / School Excuse, Work / School Excuse Primary Care Provider: Miguel Ángel Wright Referrals: Miguel Ángel Wright MD [Primary Care Provider] - Activity Restrictions/Additional Instructions: Try to get a home portable pulse oximeter and closely watch your oxygen levels periodically. If you stay below 90% for more than a minute or so, and/or you are feeling like your breathing is getting worse, return to the emergency department for further evaluation. Currently, CDC recommendations state that you should stay home through day 5 of symptoms, then as long as symptoms are improving, if you need to go to work or somewhere else you may for days 6-10 as long as you are wearing a mask the entire time. If you are feeling better after day 10 you may resume life is normal. If you feel like you are getting weak or going to pass out, any check your blood pressure and it is low, then drink plenty of fluids and discontinue your Entresto until you are finished taking the Paxlovid and then you may resume it. Disposition Disposition: Home, Self Care
[2022-11-20] MEDS: Acetaminophen 500 MG Tablet 1000 MG PO (21:03)
[2022-11-20] MEDS: 0.9% Normal Saline 1,000 ML 999 ML IV (21:03)
[2022-11-20 21:06] LABS: Bacteria 0 SEEN /hpf (None Seen); Mucous, Urine 0 SEEN /hpf (<or=2+); Red Blood Cells-Urine 0 SEEN /hpf (0-5); Squamous Epithelial Cells - UA 0 SEEN /hpf (0-5); White Blood Cells 0 SEEN /hpf (0-5)
[2022-11-20 21:11] LABS: Absolute Lymphocyte Count 0.35 X10^3/uL (0.83-4.51); Absolute Neutrophil Count 3.2 X10^3/uL (2.0-7.7); Basophil# 0.03 X10^3/uL; Basophil% 0.7 % (0-1); Color, Urine Yellow (Yellow); Eosinophil# 0.06 X10^3/uL; Eosinophils% 1.4 % (0-5); Glucose, Dipstick Normal (Normal); Hematocrit 32.9 % (40-54); Hemoglobin 10.4 g/dL (13.0-16.5); Ketone-Dipstick Negative (Negative); Leukocyte Esterase-Dipstick Negative /ul (Negative); Lymphocyte # 0.35 X10^3/ul (0.83-4.51); Lymphocyte % 8.2 % (19-41); Mean Corp Hgb Conc 31.6 g/dL (32-36); Mean Corpuscular Volume 91.6 fL (80-94); Mean Platelet Vol. 9.6 fl (6.2-12.0); Monocyte% 14.1 % (0-10); NRBC Flagged by Analyzer 0 % (0-5); Neutrophil # 3.18 X10^3/uL (2.7-7.7); Neutrophil % 74.4 % (47-70); Nitrite-Dipstick Negative (Negative); Occult Blood-Urine 10 /ul (Negative); POSITIVE DIFFERENTIAL YES; Platelet Count 124 K/mm3 (150-450); Protein-Dipstick 15 mg/dl (Negative); RBC Distribution Width CV 13.8 % (11.6-14.6); RBC Distribution Width SD 46.3 fl (35.1-43.9); Red Blood Count 3.59 M/mm3 (4.6-6.2); Specific Gravity, Urine 1.015 (1.002-1.030); Urine Bilirubin Dipstick Negative (Negative); Urine Clarity Clear (Clear); Urine Urobilinogen Normal (Normal); White Blood Count 4.3 K/mm3 (4.4-11.0)
[2022-11-20 21:13] VITALS: BP 127/78; PULSE 80; RESP 16; TEMP 38.3; O2SAT 100
[2022-11-20 21:28] LABS: AST(SGOT) 22 U/L (15-37); Alanine Aminotransfer ALT/SGPT 26 U/L (16-61); Albumin, Serum 3.1 g/dL (3.2-5.0); Alkaline Phosphatase 88 U/L (45-117); Anion Gap 6 (5-15); BUN 13 mg/dL (7-18); BUN/Creat Ratio 18.8 RATIO (10-20); Calcium,Total 8.9 mg/dL (8.5-10.1); Chloride 104 mmol/L (98-107); Creatinine, Serum 0.69 mg/dL (0.70-1.30); EST Glomerular Filtration Rate 122 mL/min (>60); Est Glom Filt Rate - Afr Amer 148 mL/min (>60); Estimated Creatinine Clearance 94.08 ml/min; Glucose 111 mg/dL (74-106); Potassium 3.7 mmol/L (3.5-5.1); Protein, Total 6.1 g/dL (6.4-8.2); Sodium Level 137 mmol/L (136-145); Troponin-I HS 19 pg/mL (3.0-78.0)
[2022-11-20 21:30] LABS: International Normalized Ratio 1.1; Prothrombin Time (Protime)PT. 13.9 SECONDS (11.7-14.9)
[2022-11-20 21:31] LABS: Partial Thromboplast Time 35.7 Seconds (24.1-36.2)
[2022-11-20 21:42] LABS: Differential Indicated SCAN CRITERIA MET
[2022-11-20 21:44] LABS: Anisocytosis RARE; Macrocytosis RARE; Ovalocyte RARE; Platelet Estimate SLT DEC (ADEQ); Red Cell Morphology N CHROM NORMAL (NORM C&C)
--- NOTE | 2022-11-20 21:45 | RAD_ITS ---
STUDY: X-RAY CHEST REASON FOR EXAM: Male, 62 years old. Cough, fever TECHNIQUE: PA and lateral views of the chest. COMPARISON: August 30, 2022 FINDINGS: Port on the left extends to the superior vena cava. There are mild interstitial increased opacities of the lungs. There is no demonstrated pleural abnormality. Normal size heart. There is aortic valve prosthesis. Normal mediastinum and gary. Normal visualized pulmonary arteries. Normal visualized aortic arch and descending thoracic aorta. There are diffuse degenerative changes of the visualized thoracic spine. Normal visualized ribs, clavicles, and shoulders. Postoperative changes in the right upper abdomen. RAD/Chest PA and Lateral IMPRESSION: Degenerative changes, as described above. No demonstrated acute cardiopulmonary process. Electronically Signed: Pantera Adrian MD at 23:01 EDT ,
[2022-11-20 21:55] LABS: Lactic Acid 0.9 mmol/L (0.4-1.9)
[2022-11-20 22:00] VITALS: BP 139/80; PULSE 78; RESP 18; TEMP 38.2; O2SAT 97
[2022-11-20 23:00] VITALS: BP 129/78; PULSE 70; RESP 19; TEMP 37.9; O2SAT 96
[2022-11-22 13:19] LABS: Pathologist Review Reviewed
== END 2022-11-20 23:38 | disposition home or self-care (01) ==
PROVIDERS: Emergency Provider Emergency Medicine; PCP Internal Medicine; Visit Provider Emergency Medicine
DX: U07.1 COVID-19 (principal); E11.9 Type 2 diabetes mellitus without complications; E78.5 Hyperlipidemia, unspecified; I25.10 Atherosclerotic heart disease of native coronary artery without angina pectoris; N20.0 Calculus of kidney; F17.210 Nicotine dependence, cigarettes, uncomplicated; E03.9 Hypothyroidism, unspecified; Z79.890 Hormone replacement therapy; Z79.899 Other long term (current) drug therapy
CPT/HCPCS: 36415; 36591; 71046; 74177; 80053; 81001; 83605; 84484; 85025; 85610; 85730; 87040; 87077; 87086; 87088; 87186; 87428; 93005; 96360; 96361; 99284; J7030; Q9967; A4216

== ENCOUNTER → 2023-01-22 | Outpatient (CLI) | payer OTHER, SELFPAY ==
--- NOTE | 2023-01-22 13:00 | ASPS_PTH ---
PATIENT: ELVIRA YUNG [facility]: [facility] U#:[id number] AGE/SX: 62/M ROOM: RE01/22/[address]: Dr. Crow Armijo MD : 1960 BED: DIS: 01/22/2023 SPEC #: [id number] RECD: 01/22/23 15:21 STATUS: GOGO REPau #: [id number] SANTIAGO: 01/22/23 13:[address]: Crow Armijo DEPT: CYTOLOGY RECD BY: Faye Avila ENTERED: 01/23/23 08:59 SP TYPE: ASPIRATION OTHR DR: DO Dr. Miguel Ángel Garcia MD Tissues: Thyroid gland, NOS Procedures: Special Stain Group II Cytology Other HEADER OPERATION: Right thyroid nodule fine needle aspiration PRE-OP DIAGNOSIS: Right thyroid nodule TISSUE SUBMITTED: Right thyroid nodule x6 slides DIAGNOSIS CYTOLOGY Fine needle aspiration, right thyroid nodule (smears): Atypical follicular cells of undetermined significance (Nice Category III). See comment. AM:panda 01/23/2023 COMMENT The lesion may represent a nodule with a microfollicular pattern. Clinical correlation is suggested. The Nice System for thyroid diagnostic categorization was used in the evaluation of this case. Per recommendations and a clinician-approved plan (a call was made to the referring doctor about the recommendation), genomic testing (Afirma) has been submitted. Results will be reported as an addendum and faxed to clinician. CYTOLOGY STUDY Slides are reviewed. CYTOLOGY GROSS Received are six smears labeled with the patient's name and designated per the requisition as right thyroid nodule. Submitted for staining. / panda 01/22/2023 TC: CPT: 79322 ADDENDUM ADDENDUM ADDENDUM ADDENDUM ADDENDUM ADDENDUM ADDENDUM 02/12/2023 10:06 ADDENDUM 02/12/2023 10:06 ADDENDUM 02/12/2023 10:06 ADDENDUM 02/12/2023 10:06 ADDENDUM 02/12/2023 10:06 AFIRMA RESULTS REPORT RESULTS INTERPRETATION: The result of this 1.2 cm Nice III nodule A is Afirma GSC Benign, which suggests a low risk of cancer at approximately 4%. Please see complete report in e-chart or EMR
== END | disposition home or self-care (01) ==
PROVIDERS: PCP Internal Medicine; Referring Provider Pathology Anatomic Pathology & Clinical Pathology; Visit Provider Surgery
DX: E04.1 Nontoxic single thyroid nodule (principal)
CPT/HCPCS: 88161; 88313

== ENCOUNTER → 2023-06-29 | Outpatient (CLI) | payer OTHER, SELFPAY ==
[2023-06-29 10:41] LABS: Hemoglobin A1c 7.9 % (3.8-5.6)
== END | disposition home or self-care (01) ==
LOC: LAB 09:35
PROVIDERS: PCP Internal Medicine; Referring Provider Internal Medicine; Visit Provider Internal Medicine
DX: E11.9 Type 2 diabetes mellitus without complications (principal)
CPT/HCPCS: 36415; 83036

== ENCOUNTER 2023-09-13 08:37 | Outpatient (CLI) | payer OTHER, SELFPAY ==
[2023-09-13 09:44] LABS: Hemoglobin A1c 7.5 % (3.8-5.6)
[2023-09-13 09:47] LABS: ALB/GLOB Ratio 1.5 RATIO (0.9-2.4); AST(SGOT) 25 U/L (15-37); Alanine Aminotransfer ALT/SGPT 36 U/L (16-61); Albumin, Serum 3.8 g/dL (3.2-5.0); Alkaline Phosphatase 96 U/L (45-117); Anion Gap 2 (5-15); BUN 14 mg/dL (7-18); BUN/Creat Ratio 17.9 RATIO (10-20); Calcium,Total 9.1 mg/dL (8.5-10.1); Chloride 106 mmol/L (98-107); Cholesterol 130 mg/dL (200); Creatinine, Serum 0.78 mg/dL (0.70-1.30); EST Glomerular Filtration Rate 106 mL/min (>60); Est Glom Filt Rate - Afr Amer 128 mL/min (>60); Globulin 2.6 g/dL (2.2-4.2); Glucose 147 mg/dL (74-106); High Density Lipoprotein 37 mg/dL; Magnesium 1.9 mg/dL (1.6-2.6); Potassium 4.5 mmol/L (3.5-5.1); Protein, Total 6.4 g/dL (6.4-8.2); Sodium Level 136 mmol/L (136-145); Thyroid Stim Hormone (TSH) 3.08 uIU/mL (0.358-3.74); Triglycerides 110 mg/dL; Very Low Density Lipoprotein 22 mg/dL (5-40)
[2023-09-13 10:57] LABS: Microalbumin,Random Urine 8.4 mg/L (NO RANGE EST.); Microalbumin:Creatinine Ratio 13.6 mg/g CRE (<30 mg/g CRE)
[2023-09-14 13:08] LABS: PSA, Free % 37.3 % (.); PSA, Total Ultrasensitive 0.804 ng/mL (0.000-4.000)
== END 2023-09-13 23:59 | disposition home or self-care (01) ==
PROVIDERS: PCP Internal Medicine; Referring Provider Internal Medicine; Visit Provider Internal Medicine
DX: E11.9 Type 2 diabetes mellitus without complications (principal); R97.20 Elevated prostate specific antigen [PSA]; E78.00 Pure hypercholesterolemia, unspecified; E83.42 Hypomagnesemia; E03.9 Hypothyroidism, unspecified
CPT/HCPCS: 36415; 80053; 80061; 82043; 82570; 83036; 83735; 84153; 84154; 84443

== ENCOUNTER → 2023-12-10 | Outpatient (CLI) | payer OTHER, SELFPAY ==
--- NOTE | 2023-12-10 15:42 | US_ITS ---
EXAM: US SOFT TISSUES HEAD AND NECK, THYROID CLINICAL INDICATION: Right thyroid nodule TECHNIQUE: Greyscale and color doppler imaging was performed of the thyroid gland. COMPARISON: No relevant prior studies available. FINDINGS: LEFT THYROID LOBE: Left lobe of the thyroid is heterogeneous. Cystic nodule measuring 4 mm inferior left lobe of the thyroid. Homogeneous echotexture with normal vascularity. The left lobe of thyroid lobe measures 3.2 x 1.0 x 0.6 cm. RIGHT THYROID LOBE: Right lobe of the thyroid is heterogeneous. Cystic nodule measuring 4 mm inferior right lobe of the thyroid. Solid nodule measuring 5 mm mid right thyroid. The nodule is isoechoic, wider than tall, smooth, without echogenic foci. The right lobe of the thyroid lobe measures 3.6 x 0.4 x 1.2 cm. ISTHMUS: Unremarkable. No thyroid nodules are present. The isthmus measures 0.4 cm in thickness. US/Thyroid IMPRESSION: 1. Cystic nodule measuring 4 mm inferior right lobe of the thyroid. TI-RADS points: 0. TI-RADS category: TR1. This nodule is benign and no FNA or follow-up is necessary. 2. Solid nodule measuring 5 mm mid right thyroid. The nodule is isoechoic, wider than tall, smooth, without echogenic foci. TI-RADS points: 3. TI-RADS category: TR3. This nodule is mildly suspicious but no FNA or follow-up is necessary given the small size of this nodule. 3. Cystic nodule measuring 4 mm inferior left lobe of the thyroid. TI-RADS points: 0. TI-RADS category: TR1. This nodule is benign and no FNA or follow-up is necessary. Electronically Signed: Randy Long MD at 4:38 EDT ,
== END | disposition home or self-care (01) ==
PROVIDERS: PCP Internal Medicine; Referring Provider Surgery; Visit Provider Surgery
DX: E04.1 Nontoxic single thyroid nodule (principal)
CPT/HCPCS: 76536

== ENCOUNTER → 2024-02-15 | Outpatient (CLI) | payer OTHER, SELFPAY ==
[2024-02-15 11:09] LABS: Hemoglobin A1c 7.7 % (3.8-5.6)
== END | disposition home or self-care (01) ==
LOC: LAB 10:16
PROVIDERS: PCP Internal Medicine; Referring Provider Internal Medicine; Visit Provider Internal Medicine
DX: E11.9 Type 2 diabetes mellitus without complications (principal)
CPT/HCPCS: 36415; 83036

== ENCOUNTER 2024-07-21 17:20 | Inpatient (IN) | payer OTHER, SELFPAY ==
[2024-07-21] VITALS (17 sets, daily range): BP systolic 89–138; BP diastolic 51–97; PULSE 76–106; RESP 14–29; TEMP 36.8–37.4; O2SAT 77–98; BMI 30.6; BMI 29.8
--- NOTE | 2024-07-21 17:50 | RAD_ITS ---
PROCEDURE: CHEST 1 VIEW (PORTABLE) 07/21/2024 REASON FOR EXAM: OCCASIONAL COUGH TECHNIQUE: Frontal view of the chest. COMPARISON: None FINDINGS: Hardware: Left chest wall port catheter. Heart: Mild cardiomegaly. Lungs: Large right pleural effusion with atelectasis. Mild interstitial thickening. No pneumothorax. Bones: The bones are unremarkable. Other: RAD/Chest 1 View (Portable) IMPRESSION: Large right pleural effusion with atelectasis. Reading Location: [facility]
[2024-07-21 17:59] LABS: Absolute Lymphocyte Count 0.43 X10^3/uL (0.83-4.51); Absolute Neutrophil Count 6.8 X10^3/uL (2.0-7.7); Basophil# 0.03 X10^3/uL; Basophil% 0.4 % (0-1); Eosinophil# 0.12 X10^3/uL; Eosinophils% 1.5 % (0-5); Hematocrit 32.3 % (40-54); Hemoglobin 10.5 g/dL (13.0-16.5); Lymphocyte # 0.43 X10^3/ul (0.83-4.51); Lymphocyte % 5.5 % (19-41); Mean Corp Hgb Conc 32.5 g/dL (32-36); Mean Corpuscular Hgb 29.8 pg (27.0-32.0); Mean Corpuscular Volume 91.8 fL (80-94); Mean Platelet Vol. 9.7 fl (6.2-12.0); Monocyte# 0.38 X10^3/uL; Monocyte% 4.9 % (0-10); NRBC Flagged by Analyzer 0 % (0-5); Neutrophil # 6.78 X10^3/uL (2.7-7.7); Neutrophil % 86.8 % (47-70); POSITIVE DIFFERENTIAL YES; Platelet Count 121 K/mm3 (150-450); RBC Distribution Width CV 14.3 % (11.6-14.6); RBC Distribution Width SD 48.1 fl (35.1-43.9); Red Blood Count 3.52 M/mm3 (4.6-6.2); White Blood Count 7.8 K/mm3 (4.4-11.0)
--- NOTE | 2024-07-21 18:13 | EDS_ITS ---
HPI History of Present Illness Chief Complaint: Shortness of Breath [facility] Medical History Hypothyroidism CAD (coronary artery disease) Tobacco use Anxiety and depression Nicotine dependence Non-Hodgkin lymphoma Nonrheumatic aortic (valve) stenosis Tubular adenoma of colon Hyperlipidemia Type 2 diabetes mellitus without complication Adjustment disorder Urolithiasis Home Medications ?Medication ?Instructions ?Recorded ?Last Taken ?Type atorvastatin 40 mg tablet 40 mg PO QHS Check with prim cassidy 09/30/19 07/20/24 History doctor omeprazole 40 mg capsule,delayed 40 mg PO DAILY PRN ge rd 09/30/19 07/21/24 History release lisinopril 5 mg tablet 5 mg PO BID 01/22/23 5 History cholecalciferol (vitamin D3) 125 125 mcg PO DAILY 11/0707/20/24 History mcg (5,000 unit) capsule glipizide 10 mg tablet, extended 10 mg PO BID 07/21/24 07/21/24 History release 24 hr lenalidomide 20 mg capsule 20 mg PO DAILY 07/21/2410/08 History (Revlimid) levothyroxine 75 mcg tablet 75 mcg PO DAILY 07/21/24 0 07/21/24 History magnesium oxide 400 mg (241.3 mg 400 mg PO DAILY 07/2107/21/24 History magnesium) tablet magnesium oxide 400 mg (241.3 mg 800 mg PO QHS 5 07/20/24 History magnesium) tablet metoprolol succinate 25 mg 25 mg PO DAILY 07/21/2411/07 History tablet,extended release 24 hr ondansetron HCl 8 mg tablet 8 mg PO Q8H PRN nausea/vom iting 07/21/24 07/20/24 History pioglitazone 30 mg tablet 30 mg PO DAILY 07/21/2410/08 History venlafaxine 150 mg 150 mg PO DAILY 07/21/2411/07 History capsule,extended release 24 hr Allergy/AdvReac Type Severity Reaction Status Date / Time cephalexin (From [facility]) Allergy Hives Verified 07/21/24 17:27 meclizine AdvReac Other Verified 07/21/24 17:27 Penicillins AdvReac Rash Verified 07/21/24 17:27 Family History Father Myocardial infarction Heart disease Hypertension Mother Heart disease Cancer Brother Hypertension Thyroid disorder Sister Breast cancer Surgical History S/P vascular surgery S/P cholecystectomy History of extraction of renal calculus History of lymph node biopsy Social History household members: spouse Smoking Status: Current every day smoker tobacco type: cigarettes how long ago did patient quit smoking: Former chew tobacco, former cigars, now only occasional cigarette. alcohol intake: current alcohol intake frequency: a few times a week Alcohol type: beer substance use type: does not use caffeine: Yes Type: coffee Number of servings: 1 EXAM Physical Exam Const Vital Signs: 07/21/24 17:23 07/21/24 17:27 07/21/24 17:28 Temperature 98.9 F 98.9 F Temperature Source Temporal Oral Pulse Rate 93 93 Respiratory Rate 20 H 20 H Respiratory Effort Respiratory Depth Respiratory Pattern Blood Pressure 138/57 H 138/97 H Blood Pressure Mean 84 110 Pulse Ox 77 77 93 Oxygen Delivery Method Room Air Room Air Nasal Cannula Oxygen Flow Rate (L/min) 3 07/21/24 17:49 07/21/24 17:58 07/21/24 17:58 Temperature Temperature Source Pulse Rate Respiratory Rate 26 H 14 Respiratory Effort Short of Breath Respiratory Depth Normal Respiratory Pattern Normal Blood Pressure Blood Pressure Mean Pulse Ox 97 95 Oxygen Delivery Method Room Air Nasal Cannula Oxygen Flow Rate (L/min) 2 07/21/24 18:23 07/21/24 18:27 07/21/24 20:00 Temperature 98.7 F 99.4 F H Temperature Source Oral Oral Pulse Rate 97 106 H 93 Respiratory Rate 18 18 20 H Respiratory Effort Respiratory Depth Respiratory Pattern Blood Pressure 129/63 H 89/59 L 125/60 H Blood Pressure Mean 85 69 81 Pulse Ox 95 98 95 Oxygen Delivery Method Nasal Cannula Nasal Cannula Nasal Cannula Oxygen Flow Rate (L/min) 2 2 2 07/21/24 20:00 07/21/24 20:30 07/21/24 20:42 Temperature Temperature Source Pulse Rate 96 98 Respiratory Rate 18 29 H Respiratory Effort Respiratory Depth Respiratory Pattern Blood Pressure 125/80 H 124/61 H Blood Pressure Mean 95 82 Pulse Ox 93 88 Oxygen Delivery Method Nasal Cannula Oxygen Flow Rate (L/min) 2 07/21/24 20:45 07/21/24 21:00 07/21/24 21:00 Temperature 99.0 F Temperature Source Oral Pulse Rate 97 85 85 Respiratory Rate 23 H 20 H 21 H Respiratory Effort Respiratory Depth Respiratory Pattern Blood Pressure 138/59 H 121/60 H 121/60 H Blood Pressure Mean 77 80 76 Pulse Ox 87 93 95 Oxygen Delivery Method Nasal Cannula Oxygen Flow Rate (L/min) 2 07/21/24 21:15 07/21/24 21:26 07/21/24 21:30 Temperature 99.2 F H Temperature Source Pulse Rate 84 83 83 Respiratory Rate 23 H 22 H 27 H Respiratory Effort Respiratory Depth Respiratory Pattern Blood Pressure 124/51 H 124/51 H 126/63 H Blood Pressure Mean 71 75 80 Pulse Ox 95 96 95 Oxygen Delivery Method Oxygen Flow Rate (L/min) MDM [facility] MDM Narrative Medical decision making narrative: HISTORY OF PRESENT ILLNESS: Chief complaint: SOB 64-year-old male history of CAD, aortic stenosis, type 2 diabetes, anxiety, depression, hypothyroidism, GERD presents with concern for shortness of breath. He was noted to be 77% on room air. Notes he is on a chemo pill for lymphoma. REVIEW OF SYSTEMS: Pertinent positives: SOB Pertinent negatives: Chest pain PHYSICAL EXAM: Nursing triage notes reviewed, Vital signs reviewed Constitutional: please see mdm HENT: MMM Eyes: Pupils equal round and reactive to light, Extraocular muscles intact Neck: No stridor, no JVD, full neck ROM Lungs: Clear to auscultation, No wheezing or rales. No increased work of breathing, no conversational dyspnea, no accessory muscle use, no nasal flaring. No respiratory distress noted Heart: Regular rate and rhythm, No murmurs, No rubs and No gallops, 2+ distal pulses (radial, femoral, posterior tibial) in all extremities Abdomen: Soft, there is no tenderness, rigidity, rebound or guarding, no obvious peritoneal signs, no palpable pulsatile abdominal masses, no auscultated abdominal bruit : No CVAT Extremities: No edema Neuro: No new focal neurological deficits, cranial nerves II through XII intact, 5/5 strength in all present extremities. Intact sensation to light touch in all present extremities, 2+ reflexes bilateral patella tendons. Skin: No rash or lesions noted MEDICAL DECISION MAKING: Chief Complaint: please see HPI External records reviewed: Reviewed prior imaging studies: Reviewed echocardiogram from 2022 showed ejection fraction 55% Factors affecting care: lymphoma, hyperlipidemia Social determinants of health: none History obtained from others: none Consults: Hospitalist (Dr. Kinney) [facility] Narrative: The patient was initially hypoxic, tachypneic, afebrile. Exam with diminished breath sounds on the right Given poor department dynamics triage orders were placed including a chest x- ray, troponin, BMP and CBC. I considered the following differential diagnosis: ALL IMAGES (IF OBTAINED) HAVE BEEN PERSONALLY REVIEWED AND INTERPRETED BY MYSELF. Chest x-ray was read and reviewed personally also shows a large right-sided pleural effusion. This is new from prior chest x-ray. This could be the cause of the patient's hypoxia and shortness of breath CBC with no leukocytosis, noted anemia, noted thrombocytopenia EKG nonischemic CTA without evidence of PE but noted pleural effusion as well as potential pneumonia High-sensitivity troponin is negative, no evidence of myocardial ischemia BNP within normal limits Magnesium within normal limits Given hypoxia and need for likely thoracentesis To determine etiology of pleural effusion patient will be admitted discussed with hospitalist Dr. Rabago. The patient and/or family, caregivers express understanding. The patient and/or family, caregivers agrees with the plan. Shared decision making: I will have a discussion with the patient and or visitors regarding risk/benefits of further testing or admission. They will be made aware of of the risk/benefits inherent in this decision they will be given the opportunity to voice understanding. Total critical care time today provided was at least 0 minutes. This excludes separately billable procedures. Critical care time (if documented) is secondary to the patient having high probability of clinically significant/life threatening deterioration in the patient's condition which required my urgent intervention. Impression: 1. Hypoxia 2. Pleural effusion 3. History of lymphoma Dispo: Discharge home This note was generated with [employer] dictation software. It may contain incorrect words, spelling, and punctuation that were not noted in review of the chart prior to signing. Lab Data Labs: Laboratory Results - last 24 hr 07/21/24 07/21/24 07/21/24 17:40 17:56 20:05 WBC 7.8 RBC 3.52 L Hgb 10.5 L Hct 32.3 L MCV 91.8 MCH 29.8 MCHC 32.5 RDW Std Deviation 48.1 H RDW Coeff of Yvonne 14.3 Plt Count 121 L MPV 9.7 Immature Gran % (Auto) 0.900 Neut % (Auto) 86.8 H Lymph % (Auto) 5.5 L [place] % (Auto) 4.9 Eos % (Auto) 1.5 Baso % (Auto) 0.4 Absolute Neuts (auto) 6.8 Absolute Lymphs (auto) 0.43 L Nucleated RBC % 0 Sodium 136 Potassium 4.0 Chloride 100 Carbon Dioxide 24.2 Anion Gap 12 BUN 20 H Creatinine 0.87 Estim Creat Clear Calc 83.07 Est GFR (MDRD) Non-Af 95 BUN/Creatinine Ratio 22.5 H Glucose 81 Calcium 9.2 Magnesium 1.7 Troponin T High Sens 18 Troponin T Hi Sens 2 Hr 21 NT pro BNP II 889 TSH 2.720 Radiography Diagnostic Testing: Clinical Impression(s) from Imaging Studies Chest X-Ray 07/21/24 17:50 IMPRESSION: Large right pleural effusion with atelectasis. Reading Location: [facility] Chest CTA 07/21/24 18:21 IMPRESSION: 1. No evidence of pulmonary embolism. 2. Large loculated right pleural effusion with atelectasis. 3. Multifocal ground-glass opacities, most prominent in the left upper lobe concerning for pneumonia. Reading Location: [facility] Discharge Plan Disposition Disposition: Acute Care Hospital [facility] Discharge Date/Time: 07/21/24 22:08
--- NOTE | 2024-07-21 18:21 | CT_ITS ---
PROCEDURE: CTA CHEST W/WO CONTRAST 07/21/2024 REASON FOR EXAM: SOB, R/O PE TECHNIQUE: CTA axial imaging of the chest with intravenous contrast. Coronal and Sagittal reconstruction series were provided. 3D, 3D post processing, 3D reconstructions, Maximum intensity projection (MIPs) Volume rendering and Shaded surface rendering was provided. PATIENT PREPARATION: Per protocol One or more dose reduction techniques were used (e.g., Automated exposure control, adjustment of the mA and/or kV according to patient size, use of iterative reconstruction technique). CONTRAST: Omnipaque 350 VOLUME: 100 mL Not Provided Gauge IV COMPARISON: None FINDINGS: Hardware: Left chest wall port catheter. Lymph nodes: Multiple enlarged mediastinal lymph nodes are noted. For example adjacent 8 mm prevascular node (series 2, image 163); 20 mm subcarinal nodes (image 138) an 11 mm right lower paratracheal node (image 165). A few other smaller nodes are scattered throughout the mediastinum. Heart: Mild cardiomegaly. Status post aortic valve replacement. Thoracic Aorta: Mild atherosclerotic calcification of the thoracic aorta. The thoracic aorta is otherwise normal in caliber. Pulmonary Vessels: No large central pulmonary emboli are identified. Contrast timing is suboptimal for evaluation of more distal branches. Most Proximal Level of Embolus (if embolus present): Lungs and Airways: Central airways are patent without endobronchial lesions. Large loculated right pleural effusion with atelectasis. Diffuse ground-glass opacities bilaterally, most prominent in the left upper lobe. There is also diffuse bronchial wall thickening. No pneumothorax. Mild biapical scarring. Upper Abdomen: Simple right renal cyst. Bones: Mild degenerative change of the thoracic spine. CT/CTA Chest W/WO Contrast IMPRESSION: 1. No evidence of pulmonary embolism. 2. Large loculated right pleural effusion with atelectasis. 3. Multifocal ground-glass opacities, most prominent in the left upper lobe con cerning for pneumonia. Reading Location: [facility]
[2024-07-21 18:40] LABS: Anion Gap 12 (5-15); BUN 20 mg/dL (4-19); BUN/Creat Ratio 22.5 RATIO (10-20); Calcium,Total 9.2 mg/dL (7.6-11.0); Carbon Dioxide 24.2 mmol/L (21.0-32.0); Chloride 100 mmol/L (98-108); Creatinine, Serum 0.87 mg/dL (0.70-1.20); EST Glomerular Filtration Rate 95 (>60); Estimated Creatinine Clearance 83.07 ml/min (50-250); Glucose 81 mg/dL (70-99); Sodium Level 136 mmol/L (133-145)
[2024-07-21 19:02] LABS: Troponin T High Sensitivity 18 ng/L (<=22)
[2024-07-21 20:33] LABS: Pro- Brain NATRIURETIC PEPTIDE 889 pg/mL (<=900)
[2024-07-21 21:01] LABS: Troponin T High Sens 2 HR 21 ng/L (<=22)
--- NOTE | 2024-07-21 21:30 | HP.PCM.HOS_ITS ---
[facility] - General General Date of Admission: 07/21/24 Date of Service: 07/21/24 Chief Complaint: SOB. [facility] Narrative ELVIRA MEJÍA, is a 64 M with a past medical history of essential hypertension; on metoprolol and lisinopril, hyperlipidemia; on atorvastatin, obesity; with BMI of 30.7 this admission, DM-2; of unknown control on pioglitazone, history of nonobstructive CAD, history of nonrheumatic aortic valve stenosis, history of depression with anxiety; on venlafaxine, history of PORT placement, history of renal calculus; s/p extraction, history of cholecystectomy, GERD; on omeprazole former history of tobacco abuse, history of tubular adenoma of colon and history of non-Hodgkin's lymphoma; on Revlimid apparently started last week and followed by Dr. Alvarez of oncology who presents to [facility] ER complaining of shortness of breath. Mr. Mejía reports his symptoms began ~2-3 days prior to admission with a gradual-onset of dyspnea on exertion that progressed to shortness of breath at rest. He noted that his oxygen saturation was 70% on room air at home so he decided to come in for further evaluation and treatment. He denies associated fever, chills, nausea, vomiting, diarrhea, constipation, chest pain, headache or rash. In the ER he was noted to have CTA with IV contrast revealing no evidence of pulmonary embolism but did show large loculated Right pleural effusion with atelectasis and multifocal ground-glass opacities most prominent in the Left upper lobe concerning for Pneumonia complicated by clinical evidence of Acute Respiratory Insufficiency and he was then admitted to the PCU for ongoing care for a stay that is expected to extend beyond 2 midnights. [facility] Medical History Hypothyroidism CAD (coronary artery disease) Tobacco use Anxiety and depression Nicotine dependence Non-Hodgkin lymphoma Nonrheumatic aortic (valve) stenosis Tubular adenoma of colon Hyperlipidemia Type 2 diabetes mellitus without complication Adjustment disorder Urolithiasis Home Medications ?Medication ?Instructions ?Recorded ?Last Taken ?Type atorvastatin 40 mg tablet 40 mg PO QHS Check with prim cassidy 09/30/19 07/20/24 History doctor omeprazole 40 mg capsule,delayed 40 mg PO DAILY PRN ge rd 09/30/19 07/21/24 History release lisinopril 5 mg tablet 5 mg PO BID 01/22/23 5 History cholecalciferol (vitamin D3) 125 125 mcg PO DAILY 11/0707/20/24 History mcg (5,000 unit) capsule glipizide 10 mg tablet, extended 10 mg PO BID 07/21/24 07/21/24 History release 24 hr lenalidomide 20 mg capsule 20 mg PO DAILY 07/21/2410/08 History (Revlimid) levothyroxine 75 mcg tablet 75 mcg PO DAILY 07/21/24 0 07/21/24 History magnesium oxide 400 mg (241.3 mg 400 mg PO DAILY 07/2107/21/24 History magnesium) tablet magnesium oxide 400 mg (241.3 mg 800 mg PO QHS 5 07/20/24 History magnesium) tablet metoprolol succinate 25 mg 25 mg PO DAILY 07/21/2411/07 History tablet,extended release 24 hr ondansetron HCl 8 mg tablet 8 mg PO Q8H PRN nausea/vom iting 07/21/24 07/20/24 History pioglitazone 30 mg tablet 30 mg PO DAILY 07/21/2410/08 History venlafaxine 150 mg 150 mg PO DAILY 07/21/2411/07 History capsule,extended release 24 hr Allergy/AdvReac Type Severity Reaction Status Date / Time cephalexin (From Keflex) Allergy Hives Verified 07/21/24 17:27 meclizine AdvReac Other Verified 07/21/24 17:27 Penicillins AdvReac Rash Verified 07/21/24 17:27 Family History Father Myocardial infarction Heart disease Hypertension Mother Heart disease Cancer Brother Hypertension Thyroid disorder Sister Breast cancer Surgical History S/P vascular surgery S/P cholecystectomy History of extraction of renal calculus History of lymph node biopsy Social History household members: spouse Smoking Status: Current every day smoker tobacco type: cigarettes how long ago did patient quit smoking: Former chew tobacco, former cigars, now only occasional cigarette. alcohol intake: current alcohol intake frequency: a few times a week Alcohol type: beer substance use type: does not use caffeine: Yes Type: coffee Number of servings: 1 ROS ROS Narrative Review of Systems: Constitutional: Patient was noted to have mild low-grade fever of 99.2 ?F present on admission but he denies chills. Eyes: Patient denies changes vision or discharge from eyes. ENT: Patient denies runny nose, sore throat or ear pain. Resp: Patient admits to dyspnea on exertion that progressed to shortness of breath at rest as per HPI. CV: Patient denies chest pain, palpitations, heart racing or lower extremity edema. GI: Patient denies abdominal pain, nausea, vomiting, diarrhea or constipation. : Patient denies dysuria, hematuria or urinary frequency. MSK: Patient denies arthralgias or myalgias. Skin: Patient denies rash, abscess, wounds or jaundice. Psych: Patient denies symptoms of uncontrolled depression or anxiety. Neuro: Patient denies headache, paresthesias or focal neurologic deficits. Allergy: Patient denies lip swelling, tongue swelling or urticaria. Hematology: Patient denies easy bleeding or easy bruisability. Endocrinology: Patient denies polyuria, polydipsia, polyphagia or heat/cold intolerance. 14 point ROS otherwise negative except for positives noted above in HPI. Vital Signs Vital Signs Vital Signs: 07/21/24 17:23 07/21/24 17:27 07/21/24 17:28 Temperature 98.9 F 98.9 F Temperature Source Temporal Oral Pulse Rate 93 93 Respiratory Rate 20 H 20 H Respiratory Effort Respiratory Depth Respiratory Pattern Blood Pressure 138/57 H 138/97 H Blood Pressure Mean 84 110 Pulse Ox 77 77 93 Oxygen Delivery Method Room Air Room Air Nasal Cannula Oxygen Flow Rate (L/min) 3 07/21/24 17:49 07/21/24 17:58 07/21/24 17:58 Temperature Temperature Source Pulse Rate Respiratory Rate 26 H 14 Respiratory Effort Short of Breath Respiratory Depth Normal Respiratory Pattern Normal Blood Pressure Blood Pressure Mean Pulse Ox 97 95 Oxygen Delivery Method Room Air Nasal Cannula Oxygen Flow Rate (L/min) 2 07/21/24 18:23 07/21/24 18:27 07/21/24 20:00 Temperature 98.7 F 99.4 F H Temperature Source Oral Oral Pulse Rate 97 106 H 93 Respiratory Rate 18 18 20 H Respiratory Effort Respiratory Depth Respiratory Pattern Blood Pressure 129/63 H 89/59 L 125/60 H Blood Pressure Mean 85 69 81 Pulse Ox 95 98 95 Oxygen Delivery Method Nasal Cannula Nasal Cannula Nasal Cannula Oxygen Flow Rate (L/min) 2 2 2 07/21/24 20:00 07/21/24 20:30 07/21/24 20:42 Temperature Temperature Source Pulse Rate 96 98 Respiratory Rate 18 29 H Respiratory Effort Respiratory Depth Respiratory Pattern Blood Pressure 125/80 H 124/61 H Blood Pressure Mean 95 82 Pulse Ox 93 88 Oxygen Delivery Method Nasal Cannula Oxygen Flow Rate (L/min) 2 07/21/24 20:45 07/21/24 21:00 07/21/24 21:00 Temperature 99.0 F Temperature Source Oral Pulse Rate 97 85 85 Respiratory Rate 23 H 20 H 21 H Respiratory Effort Respiratory Depth Respiratory Pattern Blood Pressure 138/59 H 121/60 H 121/60 H Blood Pressure Mean 77 80 76 Pulse Ox 87 93 95 Oxygen Delivery Method Nasal Cannula Oxygen Flow Rate (L/min) 2 07/21/24 21:26 Temperature 99.2 F H Temperature Source Pulse Rate 83 Respiratory Rate 22 H Respiratory Effort Respiratory Depth Respiratory Pattern Blood Pressure 124/51 H Blood Pressure Mean 75 Pulse Ox 96 Oxygen Delivery Method Oxygen Flow Rate (L/min) Weight Weight: 184 lb 3.2 oz Body Mass Index (BMI) 30.6 Physical Exam Const alert, oriented x3 and no apparent distress General Appearance: cooperative HEENT normocephalic, head/scalp atraumatic, hearing grossly normal bilaterally and moist oral mucous membranes Eyes PERRL and EOMs intact bilaterally Neck no lymphadenopathy and supple Resp Resp Narrative: Diminished breath sounds most pronounced over Right lung field with rhonchi over Left upper lobe. Auscultation: rhonchi Cardio regular rate and regular rhythm GI normal to inspection, nondistended, normoactive bowel sounds, soft to palpation, non-tender and non-distended Extremity normal to inspection, full ROM and no clubbing, cyanosis or edema Skin Skin Narrative: Patient has no evidence of rash, abscess, wounds or jaundice. Neuro oriented x3, CN's II-XII intact bilaterally, moves all extremities and no focal motor deficits Sensorium / Orientation: awake, alert, oriented to person, oriented to place and oriented to time Speech: speech normal Psych affect normal Results Medical Records Data Attestation: I reviewed the patient's medical records Lab / Micro Data Attestation: I reviewed the patient's lab results. 07/22/24 06:23 07/21/24 17:40 Labs: Laboratory Results - last 24 hr 07/21/24 17:40: WBC 7.8, RBC 3.52 L, Hgb 10.5 L, Hct 32.3 L, MCV 91.8, MCH 29.8, MCHC 32.5, RDW Std Deviation 48.1 H, RDW Coeff of Yvonne 14.3, Plt Count 121 L, MPV 9.7, Immature Gran % (Auto) 0.900, Neut % (Auto) 86.8 H, Lymph % (Auto) 5.5 L, [place] % (Auto) 4.9, Eos % (Auto) 1.5, Baso % (Auto) 0.4, Absolute Neuts (auto) 6.8, Absolute Lymphs (auto) 0.43 L, Nucleated RBC % 0, Sodium 136, Potassium 4.0, Chloride 100, Carbon Dioxide 24.2, Anion Gap 12, BUN 20 H, Creatinine 0.87, Estim Creat Clear Calc 83.07, Est GFR (MDRD) Non-Af 95, BUN/Creatinine Ratio 22.5 H, Glucose 81, Calcium 9.2, Troponin T High Sens 18 07/21/24 17:56: NT pro BNP II 889 07/21/24 20:05: Troponin T Hi Sens 2 Hr 21 Imaging Radiology Impression Chest X-Ray 07/21/24 17:50 IMPRESSION: Large right pleural effusion with atelectasis. Reading Location: [facility] Chest CTA 07/21/24 18:21 IMPRESSION: 1. No evidence of pulmonary embolism. 2. Large loculated right pleural effusion with atelectasis. 3. Multifocal ground-glass opacities, most prominent in the left upper lobe concerning for pneumonia. Reading Location: [facility] Assessment & Plan Assessment/Plan (1) Pleural effusion, right: (2) Non-Hodgkin lymphoma: QUALIFIERS: Lymphoma site: unspecified region Non-Hodgkin lymphoma type: unspecified type Qualified Code(s): C85.90 - Non-Hodgkin lymphoma, unspecified, unspecified site (3) Pneumonia: QUALIFIERS: Laterality: left Lung location: upper lobe of lung P neumonia type: due to unspecified organism Qualified Code(s): J18.9 - Pneumonia, unspecified organism (4) Respiratory insufficiency: (5) Obesity (BMI 30.0-34.9): (6) Type 2 diabetes mellitus without complication: QUALIFIERS: Diabetes mellitus long term care pharmacist insulin use: without [place] [facility] use Qualified Code(s): E11.9 - Type 2 diabetes mellitus without complications PLAN: Plan 1. CTA with IV contrast revealing no evidence of pulmonary embolism but did show large loculated Right pleural effusion with atelectasis and multifocal ground-glass opacities most prominent in the Left upper lobe concerning for Pneumonia in the setting of known non-Hodgkin's lymphoma; on Revlimid and followed by Dr. Alvarez of oncology - Admit to PCU. Continue IV levofloxacin begun in ER plus add IV vancomycin in light of PCN/cephalosporin allergies (rash/hives) and await culture and sensitivity data. Check urinary antigens to Streptococcus pneumonia and Legionella. Keep patient n.p.o. for thoracentesis at IR in a.m. for suspected malignant pleural effusion. Give acetaminophen as needed for [id number] (level 1-5/10) pain or fever. Give morphine IV as needed for severe (level 6-10/10) pain. Finally, we will consult oncology disease patient on rounds in the a.m. for further recommendations with help appreciated in advance. 2. Acute Respiratory Insufficiency due to #1 - Wean supplemental oxygen as tolerated. 3. Obesity; with BMI of 30.7 this admission adding to the burden of disease outlined #1 & #2 - Weight loss will be recommended. Check TSH. This complicates his case and may hamper recovery. 4. DM-2; of unknown control on pioglitazone adding to the medical complexity of #1 - #3 - Hold pioglitazone while inpatient. NPO for now. FSBS q. 6 hours plus lowest-intensity SSI. Check hemoglobin A1c to objectively evaluate quality of diabetic control. 5. Essential hypertension; on metoprolol and lisinopril - Maintain home regimen as previous. 6. Hyperlipidemia; on atorvastatin - Resume statin and check lipid profile. 7. History of nonobstructive CAD - Noted. 8. History of nonrheumatic aortic valve stenosis - Noted. 9. History of depression with anxiety; on venlafaxine - Restart venlafaxine when patient is able to resume oral intake. 10. History of PORT placement - Noted. 11. History of renal calculus; s/p extraction - Noted. 12. History of cholecystectomy - Noted. 13. GERD; on omeprazole - Continue PPI as before. 14. Former history of tobacco abuse - Noted. 15. History of tubular adenoma of colon - Noted. 16. DVT prophylaxis - SCD's only with impending thoracentesis outlined in #1. Total time: Approximately (but not less than) 75 minutes. Charges/Coding Visit Charges Inpatient E&M: 35085 Init Hosp L3
[2024-07-21] MEDS: levoFLOXacin IV 750 MG/150 ML BAG 100 MG IV (21:36)
[2024-07-21 22:38] LABS: Troponin T High Sens 4 HR 22 ng/L (<=22)
[2024-07-21] MEDS: 0.9% Normal Saline (1000mL) 1,000 ML 50 ML IV (23:14)
[2024-07-21] MEDS: Lisinopril 5 MG Tablet PO (23:14)
[2024-07-21] MEDS: Atorvastatin Calcium 40 MG Tablet PO (23:14)
[2024-07-21] MEDS: Vancomycin HCl 2,000 MG in 0.9% Normal Saline (500mL Bag) 500 ML 250 MG IV (23:14)
[2024-07-21] MEDS: Lactobacillis Acidophilus 1 CAP PO (23:14)
[2024-07-21] MEDS: CLARIFY ORDER 1 EACH NOTE (23:15)
[2024-07-21 23:20] LABS: Magnesium 1.7 mg/dL (1.5-2.2)
--- NOTE | 2024-07-21 23:39 | PCM.RX.CS ---
Consult Antibiotic Management Pharmacy has been consulted to manage selected antibiotic: Vancomycin Type of Intervention Type of Consult: New start Labs Labs: Sodium 136 mmol/L (133-145) 07/21/24 17:40 Potassium 4.0 mmol/L (3.3-5.1) 07/21/24 17:40 Chloride 100 mmol/L (98-108) 07/21/24 17:40 Carbon Dioxide 24.2 mmol/L (21.0-32.0) 07/21/24 17:40 Anion Gap 12 (5-15) 07/21/24 17:40 BUN 20 mg/dL (4-19) H 07/21/24 17:40 Creatinine 0.87 mg/dL (0.70-1.20) 07/21/24 17:40 Est GFR (MDRD) Non-Af 95 (>60) 07/21/24 17:40 BUN/Creatinine Ratio 22.5 RATIO (10-20) H 07/21/24 17:40 Glucose 81 mg/dL (70-99) 07/21/24 17:40 Dosing Weight Weight used for dosin.3 kg Estimated Creatinine Clearance Estimated Creatinine Clearance: 83.07 Goal Trough Goal Trough: 15-20 mcg/mL Pharmacy Plan for Drug Dosing Pharmacy Plan for Drug Dosing: Pharmacy Service will continue to monitor and adjust dosing as required. 2000MG LOADING DOSE GIVEN 07/21 @ 2214. START 1500MG Q12H AND DRAW TROUGH PRIOR TO 4TH DOSE Follow-Up Labs Follow-Up Labs: Trough: Vancomycin Date/Time Labs Ordered Labs to be done on [date and time ordered]: 07/23 @ 1100
[2024-07-22] VITALS (13 sets, daily range): BP systolic 115–157; BP diastolic 50–72; PULSE 76–101; RESP 14–24; TEMP 36.1–37.1; O2SAT 80–100; BMI 29.8
[2024-07-22 00:18] LABS: Bedside Glucose 145 mg/dL (74-106)
[2024-07-22 05:49] LABS: Bedside Glucose 96 mg/dL (74-106)
--- NOTE | 2024-07-22 06:00 | US_ITS ---
EXAM: ULTRASOUND-GUIDED DIAGNOSTIC THORACENTESIS CLINICAL HISTORY: LARGE RIGHT PLEURAL EFFUSION. COMPARISON: CTA CHEST DATED 07/21/2024. TECHNIQUE: Informed consent was obtained. The patient was prepped and draped in the usual sterile fashion. Anesthetic: Lidocaine 2% was utilized for local anesthesia. Catheter: 5F, 7 cm in length [id number] Centesis Catheter. Amount of fluid drained: 1450 mL. Color of fluid: Clear yellow. Fluid disposition: Sent to Laboratory. FINDINGS: Large right pleural effusion. US/Thoracentesis W US IMPRESSION: SUCCESSFUL RIGHT THORACENTESIS. PATIENT TOLERATED THE PROCEDURE WELL. FINAL LABORATORY RESULTS ARE PENDING. THANK YOU FOR THIS REFERRAL. Reading Location: [place] [address]
[2024-07-22 06:43] LABS: Absolute Lymphocyte Count 0.37 X10^3/uL (0.83-4.51); Absolute Neutrophil Count 5.8 X10^3/uL (2.0-7.7); Basophil# 0.02 X10^3/uL; Basophil% 0.3 % (0-1); Eosinophil# 0.19 X10^3/uL; Eosinophils% 2.8 % (0-5); Hemoglobin 10.1 g/dL (13.0-16.5); Lymphocyte # 0.37 X10^3/ul (0.83-4.51); Lymphocyte % 5.4 % (19-41); Mean Corp Hgb Conc 31.6 g/dL (32-36); Mean Corpuscular Hgb 29.4 pg (27.0-32.0); Mean Corpuscular Volume 93.3 fL (80-94); Mean Platelet Vol. 9.5 fl (6.2-12.0); Monocyte# 0.39 X10^3/uL; Monocyte% 5.7 % (0-10); NRBC Flagged by Analyzer 0 % (0-5); Neutrophil # 5.79 X10^3/uL (2.7-7.7); Neutrophil % 84.8 % (47-70); POSITIVE DIFFERENTIAL YES; Platelet Count 112 K/mm3 (150-450); RBC Distribution Width CV 14.4 % (11.6-14.6); RBC Distribution Width SD 49.3 fl (35.1-43.9); Red Blood Count 3.43 M/mm3 (4.6-6.2); White Blood Count 6.8 K/mm3 (4.4-11.0)
[2024-07-22 07:06] LABS: ALB/GLOB Ratio 2.1 RATIO (0.9-2.4); AST(SGOT) 23 U/L (<=37); Alanine Aminotransfer ALT/SGPT 20 U/L (<=46); Albumin, Serum 3.4 g/dL (3.4-4.8); Alkaline Phosphatase 77 U/L (40-129); Anion Gap 11 (5-15); BUN 15 mg/dL (4-19); BUN/Creat Ratio 19.9 RATIO (10-20); Calcium,Total 8.6 mg/dL (7.6-11.0); Carbon Dioxide 22.6 mmol/L (21.0-32.0); Chloride 105 mmol/L (98-108); Creatinine, Serum 0.74 mg/dL (0.70-1.20); EST Glomerular Filtration Rate 100 (>60); Estimated Creatinine Clearance 89.19 ml/min (50-250); Globulin 1.6 g/dL (2.2-4.2); Glucose 100 mg/dL (70-99); Phosphorus 3.6 mg/dL (2.7-4.5); Potassium 4.1 mmol/L (3.3-5.1); Sodium Level 139 mmol/L (133-145); Total Bilirubin 0.43 mg/dL (0.00-1.30)
[2024-07-22 07:34] LABS: Hemoglobin A1c 8.2 % (<=5.6)
--- NOTE | 2024-07-22 07:46 | PN.HOSP_ITS ---
Reason for Visit Reason for Visit: Diagnoses Non-Hodgkin lymphoma, unspecified, unspecified site (07/21/24) Type 2 diabetes mellitus without complications (07/21/24) Obesity, class 1 (07/21/24) Pneumonia, unspecified organism (07/21/24) Pleural effusion, not elsewhere classified (07/21/24) Other abnormalities of breathing (07/21/24) Subjective Subjective Feeling well. Still waiting on thoracentesis Objective Data Objective Data Vital Signs: Vital Signs Temp Pulse Resp BP Pulse Ox O2 Del Method O2 Flow Rate 36.5 C L 79 14 119/66 95 Nasal Cannula 2 07/22/24 04:00 07/22/24 04:00 07/22/24 04:00 07/22/24 04:00 07/22/24 04:00 07/22/24 04:00 07/22/24 04:00 Oxygen Flow Rate (L/min) 2 Oxygen Delivery Method Nasal Cannula Weight: 81.3 kg Body Mass Index (BMI) 29.8 Intake & Output: Intake and Output for Last 24 Hours 07/20/24 07/21/24 07/22/24 23:59 23:59 23:59 Intake Total 150 / 150 540 / 540 Output Total 600 / 600 Balance 150 / -150 -60 / -60 Lab / Micro Data 07/22/24 06:23 07/22/24 06:23 Labs: Laboratory Results - last 24 hr 07/21/24 17:40: WBC 7.8, RBC 3.52 L, Hgb 10.5 L, Hct 32.3 L, MCV 91.8, MCH 29.8, MCHC 32.5, RDW Std Deviation 48.1 H, RDW Coeff of Yvonne 14.3, Plt Count 121 L, MPV 9.7, Immature Gran % (Auto) 0.900, Neut % (Auto) 86.8 H, Lymph % (Auto) 5.5 L, [place] % (Auto) 4.9, Eos % (Auto) 1.5, Baso % (Auto) 0.4, Absolute Neuts (auto) 6.8, Absolute Lymphs (auto) 0.43 L, Nucleated RBC % 0, Sodium 136, Potassium 4.0, Chloride 100, Carbon Dioxide 24.2, Anion Gap 12, BUN 20 H, Creatinine 0.87, Estim Creat Clear Calc 83.07, Est GFR (MDRD) Non-Af 95, BUN/Creatinine Ratio 22.5 H, Glucose 81, Calcium 9.2, Magnesium 1.7, Troponin T High Sens 18, TSH 2.720 07/21/24 17:56: NT pro BNP II 889 07/21/24 20:05: Troponin T Hi Sens 2 Hr 21 07/21/24 22:03: Troponin T Hi Sens 4Hr 22 07/21/24 23:57: POC Glucose 145 H 07/22/24 05:29: POC Glucose 96 07/22/24 06:23: WBC 6.8, RBC 3.43 L, Hgb 10.1 L, Hct 32.0 L, MCV 93.3, MCH 29.4, MCHC 31.6 L, RDW Std Deviation 49.3 H, RDW Coeff of Yvonne 14.4, Plt Count 112 L, MPV 9.5, Immature Gran % (Auto) 1.000 H, Neut % (Auto) 84.8 H, Lymph % (Auto) 5.4 L, [place] % (Auto) 5.7, Eos % (Auto) 2.8, Baso % (Auto) 0.3, Absolute Neuts (auto) 5.8, Absolute Lymphs (auto) 0.37 L, Nucleated RBC % 0, Sodium 139, Potassium 4.1, Chloride 105, Carbon Dioxide 22.6, Anion Gap 11, BUN 15, Creatinine 0.74, Estim Creat Clear Calc 89.19, Est GFR (MDRD) Non-Af 100, BUN/Creatinine Ratio 19.9, Glucose 100 H, Hemoglobin A1c 8.2, Calcium 8.6, Phosphorus 3.6, Total Bilirubin 0.43, AST 23, ALT 20, Alkaline Phosphatase 77, T otal Protein 5.0 L, Albumin 3.4, Globulin 1.6 L, Albumin/Globulin Ratio 2.1 Micro: Microbiology 07/21/24 23:35 Mucosa - Nasopharyngeal Respiratory Panel (PCR) - Final Radiography Diagnostic Testing: Radiology Impression Chest X-Ray 07/21/24 17:50 IMPRESSION: Large right pleural effusion with atelectasis. Reading [facility] Chest CTA 07/21/24 18:21 IMPRESSION: 1. No evidence of pulmonary embolism. 2. Large loculated right pleural effusion with atelectasis. 3. Multifocal ground-glass opacities, most prominent in the left upper lobe concerning for pneumonia. Reading Location: [facility] Physical Exam Const alert and no apparent distress Resp normal respiratory effort and no retractions Resp Narrative: diminished on right with dullness to precussion. Cardio regular rate, regular rhythm, S1 normal heart sound and S2 normal heart sound GI normal to inspection, nondistended, normoactive bowel sounds, soft to palpation, non-tender and non-distended Extremity normal to inspection and full ROM Neuro Sensorium / Orientation: awake, alert, oriented to person, oriented to place and oriented to time Assessment & Plan Assessment/Plan (1) Pleural effusion, right: PLAN: Large and loculated. Etiology infectious v malignancy-induced. Thoracentesis ordered. Body fluid labs (LDH, protein, cytology, Cx) as well serum LDH and protein ordered. Consult pulmonary for further input. YURI Castillo Continue abx with levofloxacin and vancomycin Cannot rule out need for pleurodesis/decortication at tertiary facility. PLAN: Plan Chronic conditions: * NHL: follow up with oncology. * CAD: stable. * hypothyroidism: levothyroxine * HTN: lisinopril, metoprolol succinate VTE prophylaxis: SCDs. Charges/Coding Visit Charges Inpatient E&M: 43608 Subs Hosp L2
[2024-07-22] MEDS: Cholecalciferol (Vit D3) 125 MCG CAPSULE (5,000 UNITS) PO (08:40)
[2024-07-22] MEDS: Zinc Sulfate 50 mg zinc (220 mg) ORAL capsule PO (08:40)
[2024-07-22] MEDS: Ascorbic Acid 500 MG Tablet 1000 MG PO ×2 (08:40→17:20)
[2024-07-22] MEDS: Metoprolol(XL)Succ 25 MG Tablet PO (08:40)
[2024-07-22] MEDS: Lisinopril 5 MG Tablet PO ×2 (08:40→22:47)
[2024-07-22] MEDS: Venlafaxine XR 150 MG Capsule PO (08:40)
[2024-07-22] MEDS: Magnesium Chloride 64 MG Delay Rel.Tablet 128 MG PO (08:40)
[2024-07-22] MEDS: Lactobacillis Acidophilus 1 CAP PO ×3 (08:41→22:47)
[2024-07-22 09:03] LABS: International Normalized Ratio 1.1; Prothrombin Time (Protime)PT. 14.8 SECONDS (11.7-14.9)
[2024-07-22 09:04] LABS: Partial Thromboplast Time 30.2 Seconds (24.1-36.2)
--- NOTE | 2024-07-22 09:40 | CASEMGMT ---
RN KATI Face to Face with patient for initial transition planning/care coordination assessment. RN CM introduced self and role at [facility]. Patient lying in bed, alert and oriented, iwfe at bedside . Patient willing to participate in assessment and is able to answer all questions appropriately. Care providers, pharmacy, and demographics verified. Strata: 2 PCP: Adriana Specialists: Antonio, oncologist Preferred Pharmacy: [facility]; [facility] at discharge. Insurance: [employer] Prescription Benefit:yes Living Will/HPOA: yes, Betty Mejía LNOK: Living Arrangements: Patient lives with in a single story home with 3 steps and railing to enter. Patient is independent at home. Transportation: children, driving service DME/HHC: Patient states he has access to a POC for oxygen if needed. No previous HHC or SNF. Patient states they have access to generator as well. Patient wishes to discharge home, denies need for home health at this time. Patient states he has no further needs or concerns at this time. CM to follow for discharge planning needs that may arise. Disposition Plan: Patient to discharge home with family support and follow-up plans in place. Ginette SKINNER, RN, CM
--- NOTE | 2024-07-22 09:40 | EX.PCM.CONCC ---
Assessment & Plan Assessment/Plan (1) Pleural effusion, right: (2) Non-Hodgkin lymphoma: QUALIFIERS: Non-Hodgkin lymphoma type: unspecified type Lymphoma site: unspecified region Qualified Code(s): C85.90 - Non-Hodgkin lymphoma, unspecified, unspecified site PLAN: Plan RECOMMENDATIONS: 1. Proceed with ultrasound-guided thoracentesis with pleural fluid to be sent for analysis. 2. In addition to routine cytology, will send pleural fluid for flow cytometry. 3. Continue empiric antibiotics for now. 4. Wean supplemental oxygen as tolerated. 5. Encourage incentive spirometer use and mobilize patient as tolerated. IMPRESSIONS: 1. Shortness of breath in the setting of a right sided loculated pleural effusion The patient presented with worsening dyspnea in the setting of radiographic evidence of a suspected loculated right-sided pleural effusion. The patient's medical history is significant for non-Hodgkin's lymphoma, for which the patient was recently started on Revlimid by his oncologist. According to my conversation with him, the patient had the start of a pleural effusion back in April, which subsequently increased in size on pet scan in May 2023. It is certainly feasible that the pleural effusion is related to his underlying lymphoma. However, infection will need to be ruled out. Therefore, I agree with proceeding with ultrasound-guided thoracentesis. Pleural fluid will be sent for analysis, including cell count and cultures along with routine cytology and flow cytometry. 2. History of diabetes mellitus/hypertension/hyperlipidemia/coronary artery disease/valvular heart disease/GERD Complicates care, management, recovery and prognosis. Continue home medications as indicated. This note was generated with [employer] dictation software. It may contain incorrect words, spelling, and punctuation that were not noted in checking the note before signing. HPI Consult Data Date of Consult: 07/22/24 HPI Narrative Reason for Consultation: Pleural effusion HPI Narrative: The patient is a 64-year-old male, with a history as outlined below, who presented to the emergency department on July 22 with complaints of shortness of breath of approximately 2 to 3 days duration. The patient does have a history of coronary artery disease, aortic valve stenosis, along with non-Hodgkin's lymphoma, for which she was apparently started on Revlimid last week. On presentation to the emergency department, the patient was documented to be afebrile and hemodynamically stable. He was initially saturating 77% on room air. Laboratory evaluation revealed a normal white blood cell count. Hemoglobin was stable at 10.5 g/dL. There was evidence of chronic thrombocytopenia with a platelet count of 121,000. Coagulation profile was within normal limits. Chemistry profile was unremarkable. CTA chest showed no evidence for pulmonary embolism but did demonstrate mediastinal adenopathy along with a large loculated right-sided pleural effusion and scattered groundglass opacities involving the left upper lobe. I did call and speak with the patient's oncologist, Dr. Alvarez, and [facility], who indicated that the patient had the start of a small effusion back in April on imaging studies, which appears to have enlarged on subsequent PET scan from May in their system. [facility] Medical History Hypothyroidism CAD (coronary artery disease) Tobacco use Anxiety and depression Nicotine dependence Non-Hodgkin lymphoma Nonrheumatic aortic (valve) stenosis Tubular adenoma of colon Hyperlipidemia Type 2 diabetes mellitus without complication Adjustment disorder Urolithiasis Home Medications ?Medication ?Instructions ?Recorded ?Last Taken ?Type atorvastatin 40 mg tablet 40 mg PO QHS Check with primary 09/30/19 07/20/24 History doctor omeprazole 40 mg capsule,delayed 40 mg PO DAILY PRN gerd 09/30/19 07/21/24 History release lisinopril 5 mg tablet 5 mg PO BID 01/22/23 07/20/24 History cholecalciferol (vitamin D3) 125 125 mcg PO DAILY 07/21/24 07/20/24 History mcg (5,000 unit) capsule glipizide 10 mg tablet, extended 10 mg PO BID 07/21/24 07/21/24 History release 24 hr lenalidomide 20 mg capsule 20 mg PO DAILY 07/21/24 07/20/24 History (Revlimid) levothyroxine 75 mcg tablet 75 mcg PO DAILY 07/21/24 07/21/24 History magnesium oxide 400 mg (241.3 mg 400 mg PO DAILY 07/21/24 07/21/24 History magnesium) tablet magnesium oxide 400 mg (241.3 mg 800 mg PO QHS 07/21/24 07/20/24 History magnesium) tablet metoprolol succinate 25 mg 25 mg PO DAILY 07/21/24 07/21/24 History tablet,extended release 24 hr ondansetron HCl 8 mg tablet 8 mg PO Q8H PRN nausea/vomiting 07/21/24 07/20/24 History pioglitazone 30 mg tablet 30 mg PO DAILY 07/21/24 07/20/24 History venlafaxine 150 mg 150 mg PO DAILY 07/21/24 07/21/24 History capsule,extended release 24 hr Allergy/AdvReac Type Severity Reaction Status Date / Time cephalexin (From Keflex) Allergy Hives Verified 07/21/24 17:27 meclizine AdvReac Other Verified 07/21/24 17:27 Penicillins AdvReac Rash Verified 07/21/24 17:27 Family History Father Myocardial infarction Heart disease Hypertension Mother Heart disease Cancer Brother Hypertension Thyroid disorder Sister Breast cancer Surgical History S/P vascular surgery S/P cholecystectomy History of extraction of renal calculus History of lymph node biopsy Social History household members: spouse Smoking Status: Current every day smoker tobacco type: cigarettes how long ago did patient quit smoking: Former chew tobacco, former cigars, now only occasional cigarette. alcohol intake: current alcohol intake frequency: a few times a week Alcohol type: beer substance use type: does not use caffeine: Yes Type: coffee Number of servings: 1 ROS ROS Narrative 10 systems were reviewed with pertinent positives as noted in the HPI above. Physical Exam Const alert and no apparent distress Constitutional Narrative: is present at the bedside. General Appearance: cooperative HEENT normocephalic and head/scalp atraumatic Eyes PERRL, EOMs intact bilaterally and conjunctivae normal Neck supple General: trachea midline Resp normal respiratory effort Auscultation: rales and diminished lung sounds Cardio regular rate and regular rhythm Heart Sounds: murmur GI normal to inspection, nondistended, normoactive bowel sounds Extremity no clubbing, cyanosis or edema Skin no rashes or lesions noted Neuro CN's II-XII intact bilaterally, moves all extremities and no focal motor deficits Psych cooperative and affect normal Lab / Micro Data 07/22/24 06:23 07/22/24 06:23 Labs: Laboratory Results - last 24 hr 07/21/24 17:40: WBC 7.8, RBC 3.52 L, Hgb 10.5 L, Hct 32.3 L, MCV 91.8, MCH 29.8, MCHC 32.5, RDW Std Deviation 48.1 H, RDW Coeff of Yvonne 14.3, Plt Count 121 L, MPV 9.7, Immature Gran % (Auto) 0.900, Neut % (Auto) 86.8 H, Lymph % (Auto) 5.5 L, [place] % (Auto) 4.9, Eos % (Auto) 1.5, Baso % (Auto) 0.4, Absolute Neuts (auto) 6.8, Absolute Lymphs (auto) 0.43 L, Nucleated RBC % 0, Sodium 136, Potassium 4.0, Chloride 100, Carbon Dioxide 24.2, Anion Gap 12, BUN 20 H, Creatinine 0.87, Estim Creat Clear Calc 83.07, Est GFR (MDRD) Non-Af 95, BUN/Creatinine Ratio 22.5 H, Glucose 81, Calcium 9.2, Magnesium 1.7, Troponin T High Sens 18, TSH 2.720 07/21/24 17:56: NT pro BNP II 889 07/21/24 20:05: Troponin T Hi Sens 2 Hr 21 07/21/24 22:03: Troponin T Hi Sens 4Hr 22 07/21/24 23:57: POC Glucose 145 H 07/22/24 05:29: POC Glucose 96 07/22/24 06:23: WBC 6.8, RBC 3.43 L, Hgb 10.1 L, Hct 32.0 L, MCV 93.3, MCH 29.4, MCHC 31.6 L, RDW Std Deviation 49.3 H, RDW Coeff of Yvonne 14.4, Plt Count 112 L, MPV 9.5, Immature Gran % (Auto) 1.000 H, Neut % (Auto) 84.8 H, Lymph % (Auto) 5.4 L, [place] % (Auto) 5.7, Eos % (Auto) 2.8, Baso % (Auto) 0.3, Absolute Neuts (auto) 5.8, Absolute Lymphs (auto) 0.37 L, Nucleated RBC % 0, Sodium 139, Potassium 4.1, Chloride 105, Carbon Dioxide 22.6, Anion Gap 11, BUN 15, Creatinine 0.74, Estim Creat Clear Calc 89.19, Est GFR (MDRD) Non-Af 100, BUN/Creatinine Ratio 19.9, Glucose 100 H, Hemoglobin A1c 8.2, Calcium 8.6, Phosphorus 3.6, Total Bilirubin 0.43, AST 23, ALT 20, Alkaline Phosphatase 77, Total Protein 5.0 L, Albumin 3.4, Globulin 1.6 L, Albumin/Globulin Ratio 2.1 07/22/24 08:19: PT 14.8, INR 1.1, APTT 30.2 Micro: Microbiology 07/22/24 04:00 Urine, Clean Catch Legionella Antigen - Final 07/21/24 23:35 Mucosa - Nasopharyngeal Respiratory Panel (PCR) - Final Imaging Radiology Impression Chest X-Ray 07/21/24 17:50 IMPRESSION: Large right pleural effusion with atelectasis. Reading Location: [facility] Chest CTA 07/21/24 18:21 IMPRESSION: 1. No evidence of pulmonary embolism. 2. Large loculated right pleural effusion with atelectasis. 3. Multifocal ground-glass opacities, most prominent in the left upper lobe concerning for pneumonia. Reading Location: [facility] Charges/Coding Visit Charges Inpatient E&M: 27031 Init Hosp L3
[2024-07-22 11:13] LABS: Protein, Total 5.1 g/dL (5.9-8.4)
[2024-07-22] MEDS: Vancomycin HCl 1,500 MG in 0.9% Normal Saline (500mL Bag) 500 ML 250 MG IV (11:17)
[2024-07-22 11:26] LABS: LDH 292 U/L (87-241)
[2024-07-22 12:20] LABS: Bedside Glucose 139 mg/dL (74-106)
--- NOTE | 2024-07-22 12:40 | FLU_PTH ---
PATIENT: ELVIRA YUGN LOC: [facility] U#:[id number] AGE/SX: 64/M ROOM: [facility] RE07/21/[address]: Dr. Salomón Crespo DO : 1960 BED: 1 DIS: 07/23/2024 SPEC #: [id number] RECD: 07/22/24 15:38 STATUS: SOUSary REQ #: [id number] SANTIAGO: 07/22/24 12:[address]: Salomón Crespo DEPT: CYTOLOGY RECD BY: Sonia Jacques ENTERED: 07/23/24 08:42 SP TYPE: Fluid OTHR DR: MD Dr. Mukul Samaniego MD Dr. Bruce Arthur, MD Dr. Butros Latouf, MD Dr. Derek Brown, DO Dr. David de Lorenzo, DO Dr. David P Myers, MD Dr. Edward Matheis, MD Dr. Gautam Baskaran, MD Dr. Yordanos Habtegebriel, MD Dr. Hemant Dand, MD Dr. Jose Ochoa, MD Dr. Justin Wong, MD Dr. Kimber Foust, MD Dr. Lamia Aljundi, MD Dr. Marisa Magana, MD Dr. Pritam Ghosh, MD Dr. Pavan Irukulla, MD Dr. Saad Farooqi, MD Dr. Sukhdeep Dhesi, DO Dr. Sujoy Gill, MD Dr. Soleyah Groves, MD Dr. Timothy Fernstrom, MD Dr. Damien Hernandez Dr., MD Tissues: A - THORACIC FLUID Procedures: Special Stain Group II Surgery Specimen Level IV Cytospin Fluid HEADER OPERATION: Thoracentesis fluid PRE-OP DIAGNOSIS: Pleural effusion TISSUE SUBMITTED: A- Thoracentesis fluid for cytology DIAGNOSIS CYTOLOGY A. Pleural fluid: * No malignant cells are identified CYTOLOGY STUDY Slides are reviewed. CYTOLOGY GROSS A. Received is 80 ml of gold-cloudy fluid labeled with the patient's name and and designated per the requisition as Thoracentesis fluid. Submitted for cytology and cellblock preparation. 07/23/2024 CPT: 92388
--- NOTE | 2024-07-22 14:02 | CHAPLAIN ---
Type of Pastoral Visit _x__ Initial Visit ___ Follow-up Visit ___ On-call Visit ___ General Patient Visit ___ Spiritual Assessment ___ Family Conference ___ Bereavement ___ Rapid Response ___ Code Blue ___ Other (describe below) Pastoral Care Referral From _x__ Patient ___ Family ___ Nurse ___ Physician ___ On Air Announcer ___ [place] ___ Other (describe below) Sacrament/Intervention _x__ Active listening ___ Anointing ___ Orthodoxy ___ Bereavement ___ Communion ___ Violet exploration ___ _x__ Life review _x__ Prayer ___ Reconciliation ___ Sacrament of Sick _x__ Supportive presence ___ Wedding ___ Other (describe below) Pastoral Comments patient gives review on his health history and in specifics about his three bouts with cancer; pt has beaten the first two cancers so far; pt says I usually develop pneumonia when i have to get treatments for cancer; pt says that he keeps a healthy life and work balance with sufficient collection; patient welcomes a prayer
--- NOTE | 2024-07-22 14:15 | RAD_ITS ---
EXAM: Two views of the chest CLINICAL HISTORY: Status post thoracentesis. COMPARISON: None available TECHNIQUE: Two views of the chest FINDINGS: Left chest wall sarah catheter with tip terminating within the right atrium. Postsurgical changes with trans aortic valve replacement. Cardiomediastinal silhouette is moderately enlarged. Central vascular congestion. Increased perihilar interstitial opacities in bilateral lungs, likely representing edema or multifocal infection. Small to moderate right-sided pleural effusion. RAD/Chest Insp/Exp 2 View IMPRESSION: *Increased perihilar interstitial opacities within bilateral lungs, likely repr esenting edema or multifocal infection. *Small to moderate right-sided pleural effusion. *Moderate cardiomegaly with central vascular congestion. Reading Location: [id number]
[2024-07-22] MEDS: Lidocaine 2% (20 ml mdv) 20 ML Vial (14:43)
[2024-07-22 15:38] LABS: Cytology, Body Fluid / CSF SEE PATHOLOGY REPORT; Pathologist Comment/Body Fluid May follow
[2024-07-22 16:36] LABS: Body Fluid Mononuclear WBC # 1.018 10^3/uL; Body Fluid Mononuclear WBC % 97.1 %; Body Fluid Polynuclear WBC # 0.031 10^3/uL; Body Fluid Polynuclear WBC % 2.9 %; Body Fluid Total Cells Counted 1.069 10^3/ul; Red Cell Count/Body Fluid 0.003 10^6/ul; White Blood Count/Body Fluid 1.049 10^3/uL
[2024-07-22 17:02] LABS: Appearance/Body Fluid CLOUDY; Auto B Fluid Analyzer BKGD Ct COUNTS W/IN LIMITS (W/IN LIMITS); Color/Body Fluid LT YEL; Source- Body Fluid PLEURAL FLUID
[2024-07-22 17:17] LABS: LDH,Body Fluid 223 Units/L (Not Establ.); Protein, Body Fluid 3.4 g/dL (Not Establ.)
[2024-07-22] MEDS: 0.9% Saline Lock 10 ML Syringe IV (17:21)
[2024-07-22] MEDS: Glucerna Shake 120 ML LIQUID PO (17:21)
[2024-07-22 17:40] LABS: Bedside Glucose 136 mg/dL (74-106)
[2024-07-22 17:40] LABS: Lymphocytes 86 %; Macrophages 5 %; Neutrophil (Segs) 7 %; Other Cell Type/BF 2 %
[2024-07-22 17:41] LABS: Body Fluid QC Type(s) BF1Q
[2024-07-22 18:01] LABS: Glucose, Body Fluid 143 mg/dL (Not Establ.)
[2024-07-22] MEDS: LENALIDOMIDE 20 MG PO (20:16)
[2024-07-22] MEDS: levoFLOXacin IV 750 MG/150 ML BAG 100 MG IV (21:33)
--- NOTE | 2024-07-22 21:49 | RAD_ITS ---
PROCEDURE: CHEST 1 VIEW (PORTABLE) 07/22/2024 REASON FOR EXAM: CHANGE IN PATIENT LUNG SOUNDS TECHNIQUE: Frontal view of the chest. COMPARISON: 07/21/2024 FINDINGS: Hardware: Stable left-sided port catheter. Heart: Heart size is moderately enlarged. Lungs: Slight interval improvement right pleural effusion. Mild bilateral interstitial thickening. No pneumothorax. Bones: Degenerative changes are identified within the thoracic spine. Other: RAD/Chest 1 View (Portable) IMPRESSION: Interval improvement since yesterday. Reading Location: [facility]
[2024-07-22] MEDS: Atorvastatin Calcium 40 MG Tablet PO (22:46)
[2024-07-22] MEDS: Insulin Lispro 100 UNIT/ML INSULN.PEN SC (22:47)
[2024-07-22] MEDS: Magnesium Chloride 64 MG Delay Rel.Tablet 256 MG PO (22:49)
[2024-07-22 23:14] LABS: Bedside Glucose 184 mg/dL (74-106)
[2024-07-23] VITALS (7 sets, daily range): BP systolic 106–123; BP diastolic 54–59; PULSE 74–86; RESP 16–22; TEMP 36.6–36.8; O2SAT 89–96; BMI 29.9
[2024-07-23] MEDS: Vancomycin HCl 1,500 MG in 0.9% Normal Saline (500mL Bag) 500 ML 250 MG IV (00:33)
[2024-07-23 04:58] LABS: Absolute Lymphocyte Count 0.61 X10^3/uL (0.83-4.51); Absolute Neutrophil Count 7.2 X10^3/uL (2.0-7.7); Basophil# 0.01 X10^3/uL; Basophil% 0.1 % (0-1); Eosinophil# 0.17 X10^3/uL; Hematocrit 32.6 % (40-54); Hemoglobin 10.5 g/dL (13.0-16.5); Lymphocyte # 0.61 X10^3/ul (0.83-4.51); Lymphocyte % 7.2 % (19-41); Mean Corp Hgb Conc 32.2 g/dL (32-36); Mean Corpuscular Hgb 29.7 pg (27.0-32.0); Mean Corpuscular Volume 92.1 fL (80-94); Mean Platelet Vol. 9.6 fl (6.2-12.0); Monocyte# 0.44 X10^3/uL; Monocyte% 5.2 % (0-10); NRBC Flagged by Analyzer 0 % (0-5); Neutrophil # 7.21 X10^3/uL (2.7-7.7); Neutrophil % 84.9 % (47-70); Platelet Count 125 K/mm3 (150-450); RBC Distribution Width CV 14.2 % (11.6-14.6); RBC Distribution Width SD 48.1 fl (35.1-43.9); Red Blood Count 3.54 M/mm3 (4.6-6.2); White Blood Count 8.5 K/mm3 (4.4-11.0)
[2024-07-23 05:22] LABS: Anion Gap 10 (5-15); BUN 13 mg/dL (4-19); BUN/Creat Ratio 17.4 RATIO (10-20); Calcium,Total 8.6 mg/dL (7.6-11.0); Carbon Dioxide 22.1 mmol/L (21.0-32.0); Chloride 105 mmol/L (98-108); Creatinine, Serum 0.74 mg/dL (0.70-1.20); EST Glomerular Filtration Rate 100 (>60); Estimated Creatinine Clearance 89.34 ml/min (50-250); Glucose 137 mg/dL (70-99); Phosphorus 3.5 mg/dL (2.7-4.5); Potassium 3.7 mmol/L (3.3-5.1); Sodium Level 137 mmol/L (133-145)
[2024-07-23] MEDS: Levothyroxine 75 MCG Tablet PO (06:31)
[2024-07-23 07:00] LABS: Bedside Glucose 129 mg/dL (74-106)
--- NOTE | 2024-07-23 07:58 | PCM.PN.HOSP ---
Reason for Visit Reason for Visit: Diagnoses Non-Hodgkin lymphoma, unspecified, unspecified site (07/21/24) Type 2 diabetes mellitus without complications (07/21/24) Obesity, class 1 (07/21/24) Pneumonia, unspecified organism (07/21/24) Pleural effusion, not elsewhere classified (07/21/24) Other abnormalities of breathing (07/21/24) Subjective Subjective Breathing much better. Objective Data Objective Data Vital Signs: Vital Signs Temp Pulse Resp BP Pulse Ox O2 Del Method O2 Flow Rate 36.8 C 80 16 111/54 L 96 Nasal Cannula 2 07/23/24 07:43 07/23/24 07:43 07/23/24 07:43 07/23/24 07:43 07/23/24 07:43 07/23/24 07:43 07/23/24 05:32 Oxygen Flow Rate (L/min) 2 Oxygen Delivery Method Nasal Cannula Weight: 81.6 kg Body Mass Index (BMI) 29.9 Intake & Output: Intake and Output for Last 24 Hours 07/21/24 07/22/24 07/23/24 23:59 23:59 23:59 Intake Total 150 / 150 2940.00 / 2940.00 530 / 530 Output Total 3325 / 3325 Balance 150 / -150 -385.00 / -385.00 530 / 530 Lab / Micro Data 07/23/24 04:23 07/23/24 04:23 Labs: Laboratory Results - last 24 hr 07/22/24 06:23: Lactate Dehydrogenase 292 H, Total Protein 5.1 L 07/22/24 08:19: PT 14.8, INR 1.1, APTT 30.2 07/22/24 12:00: POC Glucose 139 H 07/22/24 17:19: POC Glucose 136 H 07/22/24 22:46: POC Glucose 184 H 07/22/24 : Fluid Source PLEURAL FLUID, Fluid Color LT YEL, Fluid Appearance CLOUDY, Fluid WBC 1.049, Fluid RBC 0.003, Fluid Tot Cell Count 1.069, Fld Polynuclear WBCs # 0.031, Fld Polynuclear WBCs % 2.9, Fluid Mononuclear WBCs 1.018, Fld Mononuclear WBCs % 97.1, Fluid Neutrophils 7, Fluid Lymphocytes 86, Fluid Macrophages 5, Fluid Other Cells 2, Fl Pathologist Comment May follow, Fluid Glucose 143, Fluid Total Protein 3.4, Fluid LDH 223, Fluid Comment 2 SEE COMMENT 07/23/24 04:23: WBC 8.5, RBC 3.54 L, Hgb 10.5 L, Hct 32.6 L, MCV 92.1, MCH 29.7, MCHC 32.2, RDW Std Deviation 48.1 H, RDW Coeff of Yvonne 14.2, Plt Count 125 L, MPV 9.6, Immature Gran % (Auto) 0.600, Neut % (Auto) 84.9 H, Lymph % (Auto) 7.2 L, [place] % (Auto) 5.2, Eos % (Auto) 2.0, Baso % (Auto) 0.1, Absolute Neuts (auto) 7.2, Absolute Lymphs (auto) 0.61 L, Nucleated RBC % 0, Sodium 137, Potassium 3.7, Chloride 105, Carbon Dioxide 22.1, Anion Gap 10, BUN 13, Creatinine 0.74, Estim Creat Clear Calc 89.34, Est GFR (MDRD) Non-Af 100, BUN/Creatinine Ratio 17.4, Glucose 137 H, Calcium 8.6, Phosphorus 3.5 07/23/24 06:29: POC Glucose 129 H Micro: Microbiology 07/22/24 04:00 Urine, Clean Catch Streptococcus pneumoniae Antigen (M - Final 07/22/24 04:00 Urine, Clean Catch Legionella Antigen - Final 07/21/24 23:35 Mucosa - Nasopharyngeal Respiratory Panel (PCR) - Final Radiography Diagnostic Testing: Radiology Impression Thoracentesis Ultrasound 07/22/24 06:00 IMPRESSION: SUCCESSFUL RIGHT THORACENTESIS. PATIENT TOLERATED THE PROCEDURE WELL. FINAL LABORATORY RESULTS ARE PENDING. THANK YOU FOR THIS REFERRAL. Reading Location: [facility]- Chest X-Ray 07/22/24 14:15 IMPRESSION: *Increased perihilar interstitial opacities within bilateral lungs, likely representing edema or multifocal infection. *Small to moderate right-sided pleural effusion. *Moderate cardiomegaly with central vascular congestion. Reading Location: [facility] Chest X-Ray 07/22/24 21:49 IMPRESSION: Interval improvement since yesterday. Reading Location: [facility] Physical Exam Const alert and no apparent distress HEENT head/scalp atraumatic and moist oral mucous membranes Resp normal respiratory effort, no retractions, no use of accessory muscles and clear to auscultation bilaterally Cardio regular rate, regular rhythm, S1 normal heart sound and S2 normal heart sound GI normal to inspection, nondistended, normoactive bowel sounds, soft to palpation, non-tender and non-distended Neuro Sensorium / Orientation: awake and alert Assessment & Plan Assessment/Plan (1) Pleural effusion, right: PLAN: Large and loculated. Etiology infectious v malignancy-induced. Thoracentesis performed 07/22 removed 1.45 liters. Exudative. Body fluid labs (LDH, protein, cytology, Cx) as well serum LDH and protein ordered. YURI Castillo DC abx as gram stain is negative. Continue abx with levofloxacin and vancomycin Cannot rule out need for pleurodesis/decortication at tertiary facility. Check home oxygen evaluation. PLAN: Plan Chronic conditions: NHL: follow up with oncology. CAD: stable. hypothyroidism: levothyroxine HTN: lisinopril, metoprolol succinate VTE prophylaxis: SCDs.
[2024-07-23] MEDS: Ascorbic Acid 500 MG Tablet 1000 MG PO (09:00)
[2024-07-23] MEDS: Lactobacillis Acidophilus 1 CAP PO (09:00)
[2024-07-23] MEDS: Magnesium Chloride 64 MG Delay Rel.Tablet 128 MG PO (09:01)
[2024-07-23] MEDS: Venlafaxine XR 150 MG Capsule PO (09:01)
[2024-07-23] MEDS: Metoprolol(XL)Succ 25 MG Tablet PO (09:02)
[2024-07-23] MEDS: Cholecalciferol (Vit D3) 125 MCG CAPSULE (5,000 UNITS) PO (09:03)
[2024-07-23] MEDS: Lisinopril 5 MG Tablet PO (09:03)
[2024-07-23] MEDS: Zinc Sulfate 50 mg zinc (220 mg) ORAL capsule PO (09:04)
--- NOTE | 2024-07-23 10:38 | PCM.PN.INT ---
Assessment & Plan Assessment/Plan (1) Pleural effusion, right: (2) Non-Hodgkin lymphoma: QUALIFIERS: Lymphoma site: unspecified region Non-Hodgkin lymphoma type: unspecified type Qualified Code(s): C85.90 - Non-Hodgkin lymphoma, unspecified, unspecified site PLAN: Plan RECOMMENDATIONS: 1. Continue empiric antibiotics for now. If pleural fluid Gram stain/cultures are negative, antibiotics can be discontinued. 2. Pleural fluid cytology and flow cytometry are pending. 3. Wean supplemental oxygen as tolerated. 4. Encourage incentive spirometer use and mobilize patient as tolerated. IMPRESSIONS: 1. Shortness of breath in the setting of a right sided loculated pleural effusion The patient presented with worsening dyspnea in the setting of radiographic evidence of a suspected loculated right-sided pleural effusion. The patient's medical history is significant for non-Hodgkin's lymphoma, for which the patient was recently started on Revlimid by his oncologist. According to my conversation with him, the patient had the start of a pleural effusion back in April, which subsequently increased in size on pet scan in May 2023. It is certainly feasible that the pleural effusion is related to his underlying lymphoma. Accordingly, ultrasound-guided thoracentesis was completed on July 22. Based upon my review of the patient's pleural fluid analysis, along with serum LDH and total protein levels, the pleural fluid would be considered a lymphocyte predominant exudative effusion. Pleural fluid cytology and flow cytometry are pending. I have a low index of suspicion for underlying infection. Therefore, if pleural fluid Gram stain/cultures are negative, antibiotics can be discontinued. 2. History of diabetes mellitus/hypertension/hyperlipidemia/coronary artery disease/valvular heart disease/GERD Complicates care, management, recovery and prognosis. Continue home medications as indicated. This note was generated with [employer]com[employer] software. It may contain incorrect words, spelling, and punctuation that were not noted in checking the note before signing. Subjective Subjective The patient was seen and examined at the bedside this morning. Events from the last 24 hours have been reviewed. The patient is currently afebrile, hemodynamically stable and maintaining appropriate oxygen saturations on 2 L/min via nasal cannula. The patient underwent successful ultrasound-guided thoracentesis yesterday with 1.4 L of fluid removed from the right hemithorax. The patient did note interval improvement in his breathing quality since the procedure was completed yesterday. White blood cell count is normal. Hemoglobin and platelet count are stable. Chemistry profile was unremarkable. Objective Data Objective Data The patient's most recent lab work, culture data and imaging studies have all been personally reviewed. Infectious work-up has been unrevealing to date. Pleural fluid cultures are pending. Vital Signs: Vital Signs Temp Pulse Resp BP Pulse Ox O2 Del Method O2 Flow Rate 98.2 F 80 16 111/54 L 96 Nasal Cannula 2 07/23/24 07:43 07/23/24 09:02 07/23/24 07:43 07/23/24 09:02 07/23/24 07:43 07/23/24 08:16 07/23/24 08:16 Oxygen Flow Rate (L/min) 2 Oxygen Delivery Method Nasal Cannula Weight: 179 lb 14.355 oz Body Mass Index (BMI) 29.9 Intake & Output: Intake and Output for Last 24 Hours 07/21/24 07/22/24 07/23/24 23:59 23:59 23:59 Intake Total 150 / 150 2940.00 / 2940.00 530 / 530 Output Total 3325 / 3325 Balance 150 / -150 -385.00 / -385.00 530 / 530 Medical Nutrition Assessment Dietitian: Malnutrition Criteria Met Start: 08/31/22 15:24 Freq: Status: Active Protocol: Document 08/31/22 15:24 (Rec: 08/31/22 15:24 [id number]) Nutrition Malnutrition Evidence of Malnutrition Exists Yes Malnutrition (severe): Chronic Evidenced By Suboptimal Energy Intake ( Severe),Weight Loss (Severe) Clinical Problem Chronic Disease or Condition Related Malnutrition Etiology chronic severe malnutrition related to inadequate energy intake w/ increased energy needs d/t nonhodgkins lymphoma Signs/Symptoms as evidenced by reported unintentional 24.9#/13% wt loss x 2-3 months; estimated energy intake meeting <75% of estimated energy needs > 3 months Status Active Problem Recommendation Dietitian Recommendations/Changes will liberalize diet to CHO controlled given evidence of malnutrition; 120mL Glucerna 4x/day w/ medpass for additional calories/protein if consumed Lab / Micro Data Attestation: I reviewed the patient's lab results. 07/23/24 04:23 07/23/24 04:23 Labs: Laboratory Results - last 24 hr 07/22/24 06:23: Lactate Dehydrogenase 292 H, Total Protein 5.1 L 07/22/24 12:00: POC Glucose 139 H 07/22/24 17:19: POC Glucose 136 H 07/22/24 22:46: POC Glucose 184 H 07/22/24 : Fluid Source PLEURAL FLUID, Fluid Color LT YEL, Fluid Appearance CLOUDY, Fluid WBC 1.049, Fluid RBC 0.003, Fluid Tot Cell Count 1.069, Fld Polynuclear WBCs # 0.031, Fld Polynuclear WBCs % 2.9, Fluid Mononuclear WBCs 1.018, Fld Mononuclear WBCs % 97.1, Fluid Neutrophils 7, Fluid Lymphocytes 86, Fluid Macrophages 5, Fluid Other Cells 2, Fl Pathologist Comment May follow, Fluid Glucose 143, Fluid Total Protein 3.4, Fluid LDH 223, Fluid Comment 2 SEE COMMENT 07/23/24 04:23: WBC 8.5, RBC 3.54 L, Hgb 10.5 L, Hct 32.6 L, MCV 92.1, MCH 29.7, MCHC 32.2, RDW Std Deviation 48.1 H, RDW Coeff of Yvonne 14.2, Plt Count 125 L, MPV 9.6, Immature Gran % (Auto) 0.600, Neut % (Auto) 84.9 H, Lymph % (Auto) 7.2 L, [place] % (Auto) 5.2, Eos % (Auto) 2.0, Baso % (Auto) 0.1, Absolute Neuts (auto) 7.2, Absolute Lymphs (auto) 0.61 L, Nucleated RBC % 0, Sodium 137, Potassium 3.7, Chloride 105, Carbon Dioxide 22.1, Anion Gap 10, BUN 13, Creatinine 0.74, Estim Creat Clear Calc 89.34, Est GFR (MDRD) Non-Af 100, BUN/Creatinine Ratio 17.4, Glucose 137 H, Calcium 8.6, Phosphorus 3.5 07/23/24 06:29: POC Glucose 129 H Micro: Microbiology 07/22/24 Unknown Fluid - Pleural (Lung) Body Fluid Culture - Preliminary No growth-Final to follow 07/22/24 04:00 Urine, Clean Catch Streptococcus pneumoniae Antigen (M - Final 07/22/24 04:00 Urine, Clean Catch Legionella Antigen - Final 07/21/24 23:35 Mucosa - Nasopharyngeal Respiratory Panel (PCR) - Final Radiography Diagnostic Testing: Radiology Impression Thoracentesis Ultrasound 07/22/24 06:00 IMPRESSION: SUCCESSFUL RIGHT THORACENTESIS. PATIENT TOLERATED THE PROCEDURE WELL. FINAL LABORATORY RESULTS ARE PENDING. THANK YOU FOR THIS REFERRAL. Reading Location: [facility] Chest X-Ray 07/22/24 14:15 IMPRESSION: *Increased perihilar interstitial opacities within bilateral lungs, likely representing edema or multifocal infection. *Small to moderate right-sided pleural effusion. *Moderate cardiomegaly with central vascular congestion. Reading Location: [id number] Chest X-Ray 07/22/24 21:49 IMPRESSION: Interval improvement since yesterday. Reading Location: [facility] Physical Exam Const alert and no apparent distress Constitutional Narrative: is present at the bedside. General Appearance: cooperative HEENT normocephalic and head/scalp atraumatic Eyes PERRL, EOMs intact bilaterally and conjunctivae normal Neck supple General: trachea midline Resp normal respiratory effort Auscultation: diminished lung sounds; Negative for rales, rhonchi or wheezes Cardio regular rate and regular rhythm Heart Sounds: murmur GI normal to inspection, nondistended, normoactive bowel sounds Extremity no clubbing, cyanosis or edema Skin no rashes or lesions noted Neuro CN's II-XII intact bilaterally, moves all extremities and no focal motor deficits Psych cooperative and affect normal Charges/Coding Visit Charges Inpatient E&M: 23245 Subs Hosp L2
[2024-07-23 11:42] LABS: Vancomycin, Trough Level 11.4 ug/mL (5.0-15.0)
--- NOTE | 2024-07-23 12:00 | PCM.RX.CS ---
Consult Antibiotic Management Pharmacy has been consulted to manage selected antibiotic: Vancomycin Type of Intervention Type of Consult: Follow-up Labs Labs: Sodium 137 mmol/L (133-145) 07/23/24 04:23 Potassium 3.7 mmol/L (3.3-5.1) 07/23/24 04:23 Chloride 105 mmol/L (98-108) 07/23/24 04:23 Carbon Dioxide 22.1 mmol/L (21.0-32.0) 07/23/24 04:23 Anion Gap 10 (5-15) 07/23/24 04:23 BUN 13 mg/dL (4-19) 07/23/24 04:23 Creatinine 0.74 mg/dL (0.70-1.20) 07/23/24 04:23 Est GFR (MDRD) Non-Af 100 (>60) 07/23/24 04:23 BUN/Creatinine Ratio 17.4 RATIO (10-20) 07/23/24 04:23 Glucose 137 mg/dL (70-99) H 07/23/24 04:23 Vancomycin Trough 11.4 ug/mL (5.0-15.0) 07/23/24 10:50 Microbiology Microbiology: Microbiology 07/22/24 Unknown Fluid - Pleural (Lung) Body Fluid Culture - Preliminary No growth-Final to follow 07/22/24 04:00 Urine, Clean Catch Streptococcus pneumoniae Antigen (M - Final 07/22/24 04:00 Urine, Clean Catch Legionella Antigen - Final 07/21/24 23:35 Mucosa - Nasopharyngeal Respiratory Panel (PCR) - Final Pharmacy Plan for Drug Dosing Pharmacy Plan for Drug Dosing: VANCOMYCIN LEVEL RECEIVED Current Vancomycin Dose: 1500MG Q12 Number of Doses Received: 3 Vancomycin Level: 11.4 mg/dL Hours Since Last Dose: 10 Renal Function: SCr 0.74 mg/dL, CrCl 89 mL/min Renal Function Trend: stable Lab/Micro: fluid cx pending Vancomycin Plan/Comments: 10 hour trough is subtherapeutic at 11.4mg/dL (goal 15-20). Will increase dose to 2000mg Q12 and get a level prior to 4th dose of new regimen. Pending Level: 07/24/24 @ 2330 Pharmacy Service will continue to monitor and adjust dosing as required.
[2024-07-23] MEDS: Insulin Lispro 100 UNIT/ML INSULN.PEN SC (12:21)
[2024-07-23] MEDS: Glucerna Shake 120 ML LIQUID PO (12:26)
[2024-07-23 12:29] LABS: Bedside Glucose 177 mg/dL (74-106)
--- NOTE | 2024-07-23 12:33 | DS.PCM_ITS ---
Providers Date of Admission: 07/21/24 Primary Care Physician: Dr. 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 Etiology infectious v malignancy-induced. Thoracentesis performed 07/22 removed 1.45 liters. Exudative. Body fluid labs (LDH, protein, cytology, Cx) as well serum LDH and protein ordered. DW Dr. Castillo DC abx as gram stain is negative. Continue abx with levofloxacin and vancomycin Cannot rule out need for pleurodesis/decortication at tertiary facility. Check home oxygen evaluation. Plan Chronic conditions: * NHL: follow up with oncology. * CAD: stable. * hypothyroidism: levothyroxine * HTN: lisinopril, metoprolol succinate VTE prophylaxis: SCDs. Medications at Discharge Home Medications atorvastatin 40 mg tablet 40 mg PO QHS Check with primary doctor 09/30/19 omeprazole 40 mg capsule,delayed release 40 mg PO DAILY PRN gerd 09/30/19 lisinopril 5 mg tablet 5 mg PO BID 01/22/23 cholecalciferol (vitamin D3) 125 mcg (5,000 unit) capsule 125 mcg PO DAILY 07/21/24 glipizide 10 mg tablet, extended release 24 hr 10 mg PO BID 07/21/24 lenalidomide 20 mg capsule (Revlimid) 20 mg PO DAILY 07/21/24 levothyroxine 75 mcg tablet 75 mcg PO DAILY 07/21/24 magnesium oxide 400 mg (241.3 mg magnesium) tablet 400 mg PO DAILY 07/21/24 magnesium oxide 400 mg (241.3 mg magnesium) tablet 800 mg PO QHS 07/21/24 metoprolol succinate 25 mg tablet,extended release 24 hr 25 mg PO DAILY 07/21/24 ondansetron HCl 8 mg tablet 8 mg PO Q8H PRN nausea/vomiting 07/21/24 pioglitazone 30 mg tablet 30 mg PO DAILY 07/21/24 venlafaxine 150 mg capsule,extended release 24 hr 150 mg PO DAILY 07/21/24 Hospital Course Operations None Procedures Thoracentesis Summary of Care Provided Minutes Spent on Discharge: 35 Hospital Course: Patient presents with shortness of breath. Patient was found to have very large right-sided pleural effusion. Patient had thoracentesis that showed exudative nature and removed at 1.9 L of fluid. Was exudative but no bacteria were noted on the Gram stain. Antibiotics were discontinued. This is likely due to his known history of non-Hodgkin's lymphoma. Patient will follow-up with Dr. Walker of oncology to see about resumption of his chemotherapy. Weight / BMI Weight Weight: 81.6 kg Body Mass Index (BMI) 29.9 ABG / Lab / Microbiology Data 07/23/24 04:23 07/23/24 04:23 Laboratory: Laboratory Results - last 24 hr 07/22/24 17:19: POC Glucose 136 H 07/22/24 22:46: POC Glucose 184 H 07/22/24 : Fluid Source PLEURAL FLUID, Fluid Color LT YEL, Fluid Appearance CLOUDY, Fluid WBC 1.049, Fluid RBC 0.003, Fluid Tot Cell Count 1.069, Fld Polynuclear WBCs # 0.031, Fld Polynuclear WBCs % 2.9, Fluid Mononuclear WBCs 1.018, Fld Mononuclear WBCs % 97.1, Fluid Neutrophils 7, Fluid Lymphocytes 86, Fluid Macrophages 5, Fluid Other Cells 2, Fl Pathologist Comment May follow, Fluid Glucose 143, Fluid Total Protein 3.4, Fluid LDH 223, Fluid Comment 2 SEE COMMENT 07/23/24 04:23: WBC 8.5, RBC 3.54 L, Hgb 10.5 L, Hct 32.6 L, MCV 92.1, MCH 29.7, MCHC 32.2, RDW Std Deviation 48.1 H, RDW Coeff of Yvonne 14.2, Plt Count 125 L, MPV 9.6, Immature Gran % (Auto) 0.600, Neut % (Auto) 84.9 H, Lymph % (Auto) 7.2 L, [place] % (Auto) 5.2, Eos % (Auto) 2.0, Baso % (Auto) 0.1, Absolute Neuts (auto) 7.2, Absolute Lymphs (auto) 0.61 L, Nucleated RBC % 0, Sodium 137, Potassium 3.7, Chloride 105, Carbon Dioxide 22.1, Anion Gap 10, BUN 13, Creatinine 0.74, Estim Creat Clear Calc 89.34, Est GFR (MDRD) Non-Af 100, BUN/Creatinine Ratio 17.4, Glucose 137 H, Calcium 8.6, Phosphorus 3.5 07/23/24 06:29: POC Glucose 129 H 07/23/24 10:50: Vancomycin Trough 11.4 07/23/24 12:11: POC Glucose 177 H Microbiology: Microbiology 07/22/24 Unknown Fluid - Pleural (Lung) Gram Stain - Final 07/22/24 Unknown Fluid - Pleural (Lung) Body Fluid Culture - Preliminary No growth-Final to follow 07/22/24 04:00 Urine, Clean Catch Streptococcus pneumoniae Antigen (M - Final 07/22/24 04:00 Urine, Clean Catch Legionella Antigen - Final 07/21/24 23:35 Mucosa - Nasopharyngeal Respiratory Panel (PCR) - Final Radiography Diagnostic Testing: Radiology Impression Thoracentesis Ultrasound 07/22/24 06:00 IMPRESSION: SUCCESSFUL RIGHT THORACENTESIS. PATIENT TOLERATED THE PROCEDURE WELL. FINAL LABORATORY RESULTS ARE PENDING. THANK YOU FOR THIS REFERRAL. Reading Location: [facility] Chest X-Ray 07/22/24 14:15 IMPRESSION: *Increased perihilar interstitial opacities within bilateral lungs, likely representing edema or multifocal infection. *Small to moderate right-sided pleural effusion. *Moderate cardiomegaly with central vascular congestion. Reading Location: [id number] Chest X-Ray 07/22/24 21:49 IMPRESSION: Interval improvement since yesterday. Reading [facility] Instructions Discharge Diet: No restrictions DC O2, CPAP, BIPAP Needs Home O2 Discharge instructions: No Meaningful Use Info Meaningful Use Meaningful Use Diagnoses (Choose all that apply): None applicable Ischemic Stroke Statin Dosing Therapy Reference: STATIN DOSE THERAPY REFERENCE: * Patients > 75 years receive moderate or high dose statin therapy. * Patients 75 years or YOUNGER should receive HIGH intensity statin dose unless contraindicated. You will be required to document reason for non-treatment if statin daily dose does not meet guidelines. HIGH DOSE STATIN THERAPY DAILY Atorvastatin > than or = to 40 mg Rosuvastatin > than or = to 20 mg Amlodipine + Atorvastatin > than or = to 2.5/40 mg Ezetimibe + Simvastatin 10/80 mg Simvastatin 80mg Discharge Plan Admission Admit Date/Time: 07/21/24 21:52 Primary Reason for Your Visit: pleural effusion Attending Provider: Salomón Crespo Primary Care Provider: Miguel Ángel Wright Consulting Providers: Alberto Kinney; Nicolás Modi; Mukul Mahmood; Prakash Suresh; Eladio Castillo; Alberto Long; Derrell Metz; Rai Rodriguez; Katy Justice; Elie Joshi; Giorgi Calderon; Faraz Man; Rita Chin; Elinor Ardon; Kathleen Holly; Reynold Hankins; Grady Byers; Dandre Sevilla; Andriy Lopez; Sonny Elliott; Binh Reese; Chiki Casey; Valdemar Joseph; Damien Aj Instructions Patient Instructions: [facility] RN Thoracentesis Dc Discharge Orders/Prescriptions Prescriptions: Continued atorvastatin 40 mg tablet 40 mg PO QHS omeprazole 40 mg capsule,delayed release(DR/EC) 40 mg PO DAILY PRN (Reason: gerd) lisinopril 5 mg tablet 5 mg PO BID ondansetron HCl 8 mg tablet 8 mg PO Q8H PRN glipizide 10 mg tablet extended release 24hr 10 mg PO BID venlafaxine 150 mg capsule,extended release 24hr 150 mg PO DAILY levothyroxine 75 mcg tablet 75 mcg PO DAILY magnesium oxide 400 mg (241.3 mg magnesium) tablet 400 mg PO DAILY pioglitazone 30 mg tablet 30 mg PO DAILY cholecalciferol (vitamin D3) 125 mcg (5,000 unit) capsule 125 mcg PO DAILY lenalidomide [Revlimid] 20 mg capsule 20 mg PO DAILY Patient Comments: ONC TOLD NOT TO TAKE TONIGHT AND COME TO ER magnesium oxide 400 mg (241.3 mg magnesium) tablet 800 mg PO QHS Rx Instructions: ONE AM AND TWO HS metoprolol succinate 25 mg tablet extended release 24 hr 25 mg PO DAILY Referrals / Follow Up: Miguel Ángel Wright MD [Primary Care Provider] - Within 2 Weeks Jb Alvarez DO [Med Staff - Active Staff] - Within 1 Week Disposition Disposition (needs filled in before D/C Order can be placed): Home, Self Care Charges/Coding Visit Charges Inpatient E&M: 39967 Disch Hosp >30min
--- NOTE | 2024-07-23 13:08 | CASEMGMT ---
Patient has order for discharge. RN CM in to discuss discharge needs, at bedside. Patient denies needs or help at discharge. Patient had no further questions or concerns.
--- NOTE | 2024-07-23 13:38 | PHA.DC_ITS ---
Pharmacy [facility] Reconciliation Pharmacy Service has performed discharge medication reconciliation for this patient. The patient's discharge medication list was reviewed for discrepancies and discrepancies were resolved. Medications at Discharge Home Medications atorvastatin 40 mg tablet 40 mg PO QHS cholesterol 09/30/19 omeprazole 40 mg capsule,delayed release 40 mg PO DAILY PRN gerd 09/30/19 lisinopril 5 mg tablet 5 mg PO BID blood pressure 01/22/23 cholecalciferol (vitamin D3) 125 mcg (5,000 unit) capsule 125 mcg PO DAILY supplement 07/21/24 glipizide 10 mg tablet, extended release 24 hr 10 mg PO BID diabetes 07/21/24 lenalidomide 20 mg capsule (Revlimid) 20 mg PO DAILY cancer medication 07/21/24 levothyroxine 75 mcg tablet 75 mcg PO DAILY thyroid 07/21/24 magnesium oxide 400 mg (241.3 mg magnesium) tablet 400 mg PO DAILY supplement 07/21/24 magnesium oxide 400 mg (241.3 mg magnesium) tablet 800 mg PO QHS supplement 07/21/24 metoprolol succinate 25 mg tablet,extended release 24 hr 25 mg PO DAILY heart/ BP 07/21/24 ondansetron HCl 8 mg tablet 8 mg PO Q8H PRN nausea/vomiting 07/21/24 pioglitazone 30 mg tablet 30 mg PO DAILY diabetes 07/21/24 venlafaxine 150 mg capsule,extended release 24 hr 150 mg PO DAILY mood 07/21/24
== END 2024-07-23 14:06 | disposition home or self-care (01) | DRG 841 ==
LOC: ED 18:13 → PCU 22:01
PROVIDERS: Internal Medicine Critical Care Medicine; Radiology Diagnostic Radiology; Admitting Provider Internal Medicine; Emergency Provider Emergency Medicine; PCP Internal Medicine; Referring Provider Internal Medicine
DX: C85.90 Non-Hodgkin lymphoma, unspecified, unspecified site (principal); J91.0 Malignant pleural effusion; E03.9 Hypothyroidism, unspecified; E11.9 Type 2 diabetes mellitus without complications; I10 Essential (primary) hypertension; F32.A Depression, unspecified; Z68.30 Body mass index [BMI] 30.0-30.9, adult; K21.9 Gastro-esophageal reflux disease without esophagitis; I25.10 Atherosclerotic heart disease of native coronary artery without angina pectoris; E78.5 Hyperlipidemia, unspecified; F17.210 Nicotine dependence, cigarettes, uncomplicated; E66.811 Obesity, class 1; R09.02 Hypoxemia; Z79.82 Long term (current) use of aspirin; Z79.890 Hormone replacement therapy; Z79.899 Other long term (current) drug therapy; Z88.0 Allergy status to penicillin
CPT/HCPCS: 32555; 36415; 36591; 71045; 71046; 71275; 80048; 80053; 80202; 82945; 82962; 83036; 83615; 83735; 83880; 84100; 84155; 84157; 84443; 84484; 85025; 85610; 85730; 87070; 87075; 87205; 87449; 87633; 88108; 88305; 88313; 89050; 94668; 94760; 97161; 97166; 97802; 99284; 99406; Q9967; A4216

== ENCOUNTER → 2024-08-08 | Outpatient (CLI) | payer OTHER, SELFPAY ==
[2024-08-08 08:06] VITALS: BP 131/52; PULSE 69; RESP 16; TEMP 36.3; O2SAT 98
[2024-08-08] MEDS: Lidocaine 2% (20 ml mdv) 20 ML Vial INFILT (08:09)
[2024-08-08 08:13] VITALS: BP 136/52; PULSE 66; RESP 16; O2SAT 99
[2024-08-08 08:15] VITALS: BP 133/61; PULSE 68; RESP 16; O2SAT 99
[2024-08-08 08:20] VITALS: BP 139/69; PULSE 73; RESP 16; O2SAT 96
--- NOTE | 2024-08-08 08:20 | RAD_ITS ---
EXAM: Inspiration expiration portable chest radiographs following right thoracentesis. CLINICAL HISTORY: Right pleural effusion and thoracentesis. COMPARISON: Prior study dated July 22, 2024. TECHNIQUE: Inspiration expiration views were obtained. FINDINGS: No evidence of pneumothorax following the right thoracentesis. Once again, a left-sided port a catheter is seen with the tip in the right atrium. Right hilar prominence. RAD/Chest Insp/Exp 2 View IMPRESSION: No evidence of pneumothorax on the immediate post right thoracentesis examinati on. Reading Location: [facility]
--- NOTE | 2024-08-08 08:25 | PCM.OPRPT ---
Problems Associated Problem List Diagnoses (1) Pleural effusion: Multi Select Codes Radiology Radiology US Procedures: 35142 Thoracentesis Operative Report (Standard) Operative Information Date of Procedure: 08/08/24 Pre-Operative Diagnosis: Pleural effusion Post-Operative Diagnosis: Pleural effusion Surgery/Procedure Performed: Ultrasound-guided thoracentesis patent drafter: No Type of Anesthesia: Local Procedure Start Time: 08:05 Procedure Stop Time: 08:17 Select all DRAINS/GRAFTS/IMPLANTS that apply: None Estimated Blood Loss: 0 Specimen collected: No Description of surgery: PROCEDURE: Ultrasound Guided Thoracentesis ORDERING PROVIDER: Dr. Alvarez INDICATION: Male, 64 years old. Pleural effusion. PROVIDER: ROXI Baker PROCEDURE: The risks, benefits, and alternatives to the procedure were explained to the patient. The specific risks of bleeding, infection, and pneumothorax requiring chest tube insertion were discussed and accepted. Written informed consent was obtained. He is not on any anticoagulatant medications. The patient was placed in the sitting, upright position. Ultrasonographic evaluation of the bilateral lower pleural spaces was carried out. An adequate pocket was identified in the right lower pleural space. The overlying skin was prepped with chlorhexidine and draped in sterile fashion. 2 % lidocaine was administered subcutaneously for local anesthesia. Under ultrasound guidance, a 5-Eritrean thoracentesis needle/catheter system was advanced into the right posterior lower pleural fluid collection. 1340 ml of clear yellow colored fluid was drained. The catheter was removed, and a sterile dressing was applied. The patient tolerated the procedure well. A chest x-ray was ordered; there was no evidence of pneumothorax. There were no immediate complications. The procedure was proctored by interventional radiologist Dr. Melvin. IMPRESSION: Successful ultrasound guided thoracentesis of right pleural effusion. Surgical Findings: None Complications Complications: No
== END | disposition home or self-care (01) ==
PROVIDERS: PCP Internal Medicine; Referring Provider Internal Medicine Hematology & Oncology; Visit Provider Internal Medicine Hematology & Oncology
DX: C82.52 Diffuse follicle center lymphoma, intrathoracic lymph nodes (principal)
CPT/HCPCS: 32555; 71046

== ENCOUNTER → 2024-08-14 | Outpatient (CLI) | payer OTHER, SELFPAY ==
[2024-08-14 10:44] LABS: Hemoglobin A1c 7.6 % (<=5.6)
[2024-08-14 12:28] LABS: Magnesium 2.2 mg/dL (1.5-2.2)
[2024-08-14 12:59] LABS: PSA,Total - Annual Screen 3.46 ng/mL (0.02-4.00); Vitamin D,25 Hydroxy 46.5 ng/mL (30-100)
== END | disposition home or self-care (01) ==
LOC: LAB 09:32
PROVIDERS: PCP Internal Medicine; Referring Provider Internal Medicine; Visit Provider Internal Medicine
DX: E11.9 Type 2 diabetes mellitus without complications (principal); E03.9 Hypothyroidism, unspecified; E55.9 Vitamin D deficiency, unspecified; Z12.5 Encounter for screening for malignant neoplasm of prostate
CPT/HCPCS: 36415; 82306; 83036; 83735; 84153; 84439; 84443; G0103

== ENCOUNTER → 2024-08-22 | Outpatient (CLI) | payer OTHER, SELFPAY ==
--- NOTE | 2024-08-22 12:29 | US_ITS ---
EXAM: Ultrasound-guided right thoracentesis. CLINICAL HISTORY: Recurrent pleural effusion. COMPARISON: Prior thoracentesis of 08/08/2024. TECHNIQUE: Procedure: Following informed consent, an using standard sterile technique, a right posterior thoracentesis was performed under sonographic guidance. 2% lidocaine local anesthesia was followed by placement of a 5 English catheter into the pleural space. Approximately 1.27 L cloudy yellow fluid was successfully removed. No complication was encountered, and the patient left the department in good condition without significant complaint. US/Thoracentesis W US IMPRESSION: Successful right sided ultrasound-guided thoracentesis. Approximately 1.27 L c loudy yellow fluid was successfully removed. Reading Location: [place] [id number]
[2024-08-22] MEDS: Lidocaine 2% (20 ml mdv) 20 ML Vial INFILT (13:11)
[2024-08-22 13:40] VITALS: BP 118/52; PULSE 72; RESP 18; TEMP 36.3; O2SAT 97
[2024-08-22 13:44] VITALS: BP 124/58; BP 128/64; PULSE 77; PULSE 80; RESP 18; O2SAT 96; O2SAT 97
== END | disposition home or self-care (01) ==
PROVIDERS: PCP Internal Medicine; Referring Provider Internal Medicine Hematology & Oncology; Visit Provider Internal Medicine Hematology & Oncology
DX: J90 Pleural effusion, not elsewhere classified (principal); C82.52 Diffuse follicle center lymphoma, intrathoracic lymph nodes
CPT/HCPCS: 32555

== ENCOUNTER → 2024-09-05 | Outpatient (CLI) | payer OTHER, SELFPAY ==
[2024-09-05 10:32] VITALS: BP 126/68; PULSE 60; RESP 16; O2SAT 98
[2024-09-05] MEDS: Lidocaine 2% (20 ml mdv) 20 ML Vial INFILT (10:38)
[2024-09-05 10:45] VITALS: BP 135/48; PULSE 60; RESP 16; O2SAT 100
[2024-09-05 10:50] VITALS: BP 134/60; PULSE 61; RESP 16; O2SAT 100
--- NOTE | 2024-09-05 10:50 | RAD_ITS ---
EXAM: XR Chest, 1 View CLINICAL INDICATION: POST THORACENTESIS TECHNIQUE: Frontal view of the chest. COMPARISON: XR Chest dated 08/08/2024 FINDINGS: LUNGS AND PLEURAL SPACES: Pulmonary venous congestion. No pneumothorax. HEART: Unremarkable. No cardiomegaly. MEDIASTINUM: Unremarkable. Normal mediastinal contour. BONES/JOINTS: Unremarkable. No acute fracture. TUBES, LINES AND DEVICES: Left-sided Mediport with the distal tip in the SVC. No pneumothorax. RAD/Chest Insp/Exp 2 View IMPRESSION: 1. No pneumothorax. 2. Pulmonary venous congestion. Reading [facility]
--- NOTE | 2024-09-05 10:55 | OP.PCM_ITS ---
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 Alvarez INDICATION: Male, 64 years old. Pleural effusion, right. PROVIDER: ROXI Baker PROCEDURE: The risks, benefits, and alternatives to the procedure were explained to the patient. The specific risks of bleeding, infection, and pneumothorax requiring chest tube insertion were discussed and accepted. Written informed consent was obtained. The patient was placed in the sitting, upright position. Ultrasonographic evaluation of the bilateral lower pleural spaces was carried out. An adequate pocket was identified in the right lower pleural space. The overlying skin was prepped with chlorhexidine and draped in sterile fashion. 2 % lidocaine was administered subcutaneously for local anesthesia. Under ultrasound guidance, a 5-[place] thoracentesis needle/catheter system was advanced into the right posterior lower pleural fluid collection. 1040 ml of cloudy yellow colored fluid was drained. The catheter was removed, and a sterile dressing was applied. The patient tolerated the procedure well. A chest x-ray was ordered; there was no evidence of pneumothorax. There were no immediate complications. The procedure was proctored by interventional radiologist Dr. Melvin. IMPRESSION: Successful ultrasound guided thoracentesis of right pleural effusion. Surgical Findings: None Complications Complications: No
== END | disposition home or self-care (01) ==
LOC: US 10:15
PROVIDERS: PCP Internal Medicine; Referring Provider Internal Medicine Hematology & Oncology; Visit Provider Internal Medicine Hematology & Oncology
DX: C82.52 Diffuse follicle center lymphoma, intrathoracic lymph nodes (principal)
CPT/HCPCS: 32555; 71046

== ENCOUNTER → 2024-09-19 | Outpatient (CLI) | payer OTHER, SELFPAY ==
--- NOTE | 2024-09-19 09:40 | US_ITS ---
PROCEDURE: THORACENTESIS UNDER ULTRASOUND GUIDANCE 09/19/2024 REASON FOR EXAM: DIFFUSE FOLLICLE CENTER LYMPHOMA, INTRATHORACIC LYMPH NODES TECHNIQUE: GRAYSCALE REAL-TIME SECTOR IMAGING WAS UTILIZED TO LOCALIZE THE SITE OF PUNCTURE IN THE RIGHT GUERO-THORAX. COMPARISON: 08/22/2024 THORACENTESIS. FINDINGS: Informed consent was obtained. The patient was prepped and draped in the usual sterile fashion. Anesthetic: Lidocaine 2% was utilized for local anesthesia. Catheter: 5 Fr, 10 cm in length [id number] Centesis Catheter. Drained fluid: 1010 mL. Fluid color: Yellow. Fluid clarity: Cloudy. Fluid disposition: Discarded. US/Thoracentesis W US IMPRESSION: Successful right chest thoracentesis under ultrasound. Patient tolerated the procedure well. Thank you for this referral. Reading Location: [place] [id number]
[2024-09-19 10:04] VITALS: BP 134/70; PULSE 69; RESP 16; TEMP 35.9; O2SAT 98
[2024-09-19 10:15] VITALS: BP 146/65; PULSE 71; RESP 16; O2SAT 99
[2024-09-19] MEDS: Lidocaine 2% (20 ml mdv) 20 ML Vial INFILT (10:18)
[2024-09-19 10:20] VITALS: BP 151/68; PULSE 72; RESP 16; O2SAT 99
--- NOTE | 2024-09-19 10:25 | RAD_ITS ---
EXAM: Portable chest CLINICAL HISTORY: Status post right thoracentesis. COMPARISON: Portable chest, 09/05/2024. TECHNIQUE: AP portable chest images in inspiration and expiration were obtained. FINDINGS: There is blunting of the right costophrenic angle, which does not appear significantly changed. There is no evidence of right-sided pneumothorax. The lungs are otherwise clear. There is cardiomegaly and aortic ectasia consistent with benign essential hypertension. There is calcific vascular disease of the thoracic aorta. There is a left IJ Port-A-Cath in good position. The upper abdominal bowel gas pattern is normal. There are no bony abnormalities. RAD/Chest Insp/Exp 2 View IMPRESSION: 1. Status post interval right thoracentesis. There is no evidence of complica tions. 2. Other findings as noted. Reading Location: [id number]
[2024-09-19 10:30] VITALS: BP 129/66; PULSE 74; RESP 16; O2SAT 99
[2024-09-19 10:38] VITALS: BP 124/58; PULSE 64; RESP 16; O2SAT 98
== END | disposition home or self-care (01) ==
LOC: US 09:35
PROVIDERS: PCP Internal Medicine; Referring Provider Internal Medicine Hematology & Oncology; Visit Provider Internal Medicine Hematology & Oncology
DX: C82.52 Diffuse follicle center lymphoma, intrathoracic lymph nodes (principal)
CPT/HCPCS: 32555; 71046

== ENCOUNTER → 2024-10-03 | Outpatient (CLI) | payer OTHER, SELFPAY ==
--- NOTE | 2024-10-03 08:17 | US_ITS ---
PROCEDURE: CHEST 10/03/2024 REASON FOR EXAM: DIFFUSE FOLLICLE CENTER LYMPHOMA, INTRATHORACIC LYMPH NODES TECHNIQUE: CHEST Imaging of the pleural spaces was performed. COMPARISON: Prior chest radiograph dated September 19, 2024. US/Chest IMPRESSION: Not enough fluid for safe thoracentesis. Reading Location: [place] [id number]
[2024-10-03 08:38] VITALS: BP 119/44; PULSE 61; RESP 16; O2SAT 100
== END | disposition home or self-care (01) ==
LOC: US 08:09
PROVIDERS: PCP Internal Medicine; Referring Provider Internal Medicine Hematology & Oncology; Visit Provider Internal Medicine Hematology & Oncology
DX: C82.52 Diffuse follicle center lymphoma, intrathoracic lymph nodes (principal); Z53.09 Procedure and treatment not carried out because of other contraindication
CPT/HCPCS: 76604

== ENCOUNTER → 2024-10-31 | Outpatient (CLI) | payer OTHER, SELFPAY ==
--- NOTE | 2024-10-31 08:26 | US_ITS ---
PROCEDURE: CHEST 10/31/2024 REASON FOR EXAM: DIFFUSE FOLLICLE CENTER LYMPHOMA, INTRATHORACIC LY TECHNIQUE: CHEST Imaging of the right hemithorax was performed for assessment of pleural fluid and thoracentesis. COMPARISON: Prior study dated October 03, 2024 US/Chest IMPRESSION: Not enough fluid for safe thoracentesis. Reading Location: [place] [id number]
== END | disposition home or self-care (01) ==
PROVIDERS: PCP Internal Medicine; Referring Provider Internal Medicine Hematology & Oncology; Visit Provider Internal Medicine Hematology & Oncology
DX: C82.52 Diffuse follicle center lymphoma, intrathoracic lymph nodes (principal)
CPT/HCPCS: 76604